=== PATIENT | female | born 1940 | race Hispanic/Latino ===

== ENCOUNTER 2017-05-07 13:49 | Inpatient (IN) | payer MEDICARE, MEDICAID ==
[~2017-05-07 13:49] MED LIST: ISOVUE-370 76%-LOCM 1 ML ONE
[2017-05-07 15:20] LABS: #Lymphocytes 1.1 thou/uL (1.20-3.40); #Monocytes 1.2 thou/uL (0.11-0.59); #Neutrophils 10.8 thou/uL (1.40-6.50); %Basophils 0.2 % (0.0-1.0); %Eosinophils 0.3 % (0.0-10.0); %Lymphocytes 8.3 % (21.0-51.0); %Monocytes 8.8 % (0.0-10.0); Hematocrit 41.1 % (36.0-47.0); Mean Platelet Volume 6.5 fL (7.4-10.4); Red Blood Cell (RBC) Count 3.95 mill/uL (4.20-5.40); White Blood Cell (WBC) Count 13.1 thou/uL (4.8-10.8)
[2017-05-07] MEDS ORDERED: Ondansetron HCl/PF 4 MG/2 ML Vial ONE (15:39)
[2017-05-07] MEDS ORDERED: Acetaminophen 325 MG TAB ONE (15:39)
[2017-05-07] MEDS ORDERED: Morphine 4 MG/ML Carpuject ONE ×2 (15:39→19:49)
[2017-05-07 15:45] LABS: ALT (SGPT) 14 U/L (8-55); AST (SGOT) 18 U/L (5-34); Alkaline Phosphatase 85 U/L (40-150); Anion Gap 14 mmol/L (10-20); BUN (Urea Nitrogen) 11 mg/dL (9.8-20.1); Bilirubin, Total 0.6 mg/dL (0.2-1.2); Calc. Creatinine Clearance 0 mL/min (70-130); Calcium 9.5 mg/dL (7.8-10.44); Carbon Dioxide 26 mmol/L (23-31); Chloride 102 mmol/L (98-107); Estimated GFR-MDRD 73; Globulin 3.5 g/dL (2.4-3.5); Lipase 8 U/L (8-78); Protein, Total 6.8 g/dL (6.0-8.3)
[2017-05-07 15:48] LABS: Troponin I Less than 0.010 ng/mL (< 0.028)
[2017-05-07 15:50] LABS: Bilirubin Negative (Negative); Blood, Urine Negative (Negative); Glucose, Urine (Dipstick) Negative (Negative); Ketone, Urine Negative (Negative); Nitrite Negative (Negative); Protein, Urine (Dipstick) Negative (Neg-Trace)
[2017-05-07 15:53] LABS: Bacteria/HPF 1+ HPF (None Seen); Hyaline Casts/LPF 0-3 HYALINE CAST LPF (0-3 Hyaline); RBC/HPF 0-3 HPF (0-3)
--- NOTE | 2017-05-07 16:43 | RAD ---
CHEST ONE VIEW 05/07/17 HISTORY: Fever. COMPARISON: Chest one view 03/19/16. FINDINGS: Heart size is similar. No focal air space consolidation, pneumothorax or effusion. Lungs are slightl y hypoinflated with vascular crowding and bibasilar atelectasis. IMPRESSION: Lung hypoinflation. No acute intrathoracic abnormality. POS: [facility]
--- NOTE | 2017-05-07 16:59 | CT ---
CT ABDOMEN AND PELVIS WITH CONTRAST 05/07/17 HISTORY: Abdominal pain. COMPARISON: CT abdomen and pelvis 2012. Lung bases are clear. No pericardial effusion. The hepatic hypodensities are similar to the comparison examination likely a benign cyst. Prior chol ecystectomy. Small sliding hiatal hernia. Aortoiliac contour is normal. There is evidence of prior ventral hernia repair which there is now eventration of the ventral herni a repair with diastasis of the rectus muscles. There is also extension of small bowel through a defe ct of the hernia repair to the left and to the caudal aspect margin. At the distal transverse colon, is an area of circumferential edema. This is just proximal to what appears to be lamellated calcifi cation within the lumen of the transverse colon at the level of the splenic flexure. The distal colo n is collapsed. The colon proximal to this lamellated calcification is not dilated although is sligh t air filled. No free intraperitoneal gas. The lungs are osteopenic. There are compression fractures at L2 and L3. Severe degenerative disease of the pubic symphysis likely evidence of infection or prior trauma with mild widening. There is scl erosis of the sacrum bilaterally in a linear fashion suggesting insufficiency fractures. The liver and spleen are unremarkable. There is a mass of the inferior pole left kidney which extend s into the renal sinus fat measuring 2.3 x 1.5 x 2.5 cm. The cortices is thinned relative to the 201 3 examination. IMPRESSION: 1. Focal area of circumferential wall thickening of the distal transverse colon with adjacent i nflammatory stranding. This may represent a focal area of colitis. Just distal to this at the spleni c flexure is a lamellated calcification in the lumen of the colon measuring 4.6 x 3.2 x 3 cm. A low grade obstructive process is felt less likely. Colonoscopic evaluation is recommended. 2. Eventration of the prior ventral hernia repair with a focal defect at the caudad and left la teral portion of the repair which contains a loop of small bowel. No evidence of obstruction of this loop of small bowel. 3. 2.4 x 1.6 x 2.5 cm mass inferior pole left kidney extending to the renal sinus fat. This is concerning for malignancy. Urologic consultation recommended. Followup MRI renal protocol would be r ecommended. 4. Osteopenia of the skeleton with compression fracture of L2 and L3, approximately 20% anterio r height loss. There is also sclerosis of the sacrum and ilium on either side of the SI joint sugges ting a chronic longstanding insufficiency fracture. POS: [facility]
[2017-05-07] MEDS ORDERED: metroNIDAZOLE 500 MG/100 ML BAG ONE (17:56)
[2017-05-07] MEDS ORDERED: Ondansetron HCl/PF 4 MG/2 ML Vial IVP PRN (20:03)
[2017-05-07] MEDS ORDERED: Ondansetron ODT 4 MG TAB SL PRN (20:03)
[2017-05-07] MEDS ORDERED: Sodium Chloride 0.9% 1,000 ML IV SCH (20:03)
[2017-05-07] MEDS ORDERED: MORPHINE 10 MG/ML SYRINGE IV PRN (20:05)
[2017-05-07] MEDS ORDERED: Loratadine 10 MG TAB PO PRN (20:35)
[2017-05-07] MEDS: Sodium Chloride 0.9% 1,000 ML IV SCH (21:20)
[2017-05-07] MEDS: Ondansetron HCl/PF 4 MG/2 ML Vial IVP PRN (21:20)
--- NOTE | 2017-05-07 23:25 | HP ---
DATE OF ADMISSION: 05/07/2017 PRIMARY CARE PHYSICIAN: Dr. Isaias Foster. CHIEF COMPLAINT: Abdominal pain. HISTORY OF PRESENT ILLNESS: This is a 76-year-old female with past medical history of hypo thyroidism, hypertension, anxiety, GERD, who presented to the emergency room with severe lower abdom inal pain for a few days. She also reported subjective fevers at home. She also reports nausea wit hout vomiting. She denies constipation and diarrhea. In the emergency room, she has had multiple t ests including CT of the abdomen, which showed colitis as well as a kidney mass. She has been given a dose of Levaquin and Flagyl as well as morphine and Tylenol. She does feel little better at this time. ALLERGIES: 1. CODEINE. 2. CIPRO. 3. MACROBID. 4. ZANAFLEX. 5. BACTRIM. 6. RANITIDINE. MEDICATIONS: 1. Synthroid 25 mcg p.o. daily. 2. Losartan 50 mg p.o. daily. 3. Omeprazole 40 mg p.o. daily. 4. Diazepam 5 mg one half tablet daily p.r.n. for anxiety. PAST SURGICAL HISTORY: 1. Cholecystectomy. 2. Hernia repair. FAMILY HISTORY: Unremarkable. SOCIAL HISTORY: Denies tobacco, alcohol, and drugs. REVIEW OF SYSTEMS: General: Reports subjective fever. Denies chills, sleep, or appetite change. HEENT: Denies headache, vision changes, sore throat, or dysphagia. Skin: Denies rashes and lesion s. Cardiovascular: Denies chest pain or palpitations. Respiratory: Denies shortness of breath an d cough. Gastrointestinal: Reports lower abdominal pain and nausea. Denies vomiting, constipation , or diarrhea. Genitourinary: Denies dysuria, hematuria, or discharge. Musculoskeletal: Denies j oint stiffness or swelling. Neurologic: Denies numbness, syncope, or dizziness. PHYSICAL EXAMINATION: VITAL SIGNS: Blood pressure 141/72, pulse 92, respirations 20, temperature 101.2, oxygen saturation 95% on room air. GENERAL: Alert and oriented x3 with no acute distress. SKIN: No rashes or lesions. HEENT: Normocephalic. Pupils are equally round and reactive to light. Extraocular muscles are int act. Moist mucous membranes with nonerythematous throat. HEART: Regular rate and rhythm with no murmurs. LUNGS: Clear to auscultation bilaterally. No rales. ABDOMEN: Soft, mildly tender in the lower quadrants. Bowel sounds decreased. MUSCULOSKELETAL: Normal strength and range of motion. NEUROLOGIC: Cranial nerves II through XII are intact. Sensation is within normal limits. LABORATORY DATA AND X-RAY FINDINGS: 1. White blood cell count 13.1, hemoglobin 13.7, hematocrit 41.1, platelets 223, neutrophils 82.4%. 2. Sodium 138, potassium 3.5, chloride 102, carbon dioxide 26, BUN 11, creatinine 0.77, glucose 131 , lactic acid 1.0, calcium 9.5, total bilirubin 0.6, AST 18, ALT 14, alkaline phosphatase 85, CK 25, CK-MB 0.5. Troponins less than 0.010. Total protein 6.8, albumin 3.3. Lipase 8. 3. Chest x-ray, no acute process. CT of the abdomen and pelvis shows evidence of colitis. 4. Left kidney mass. ASSESSMENT AND PLAN: 1. Sepsis. This is qualified by elevated white blood cells and fever. We will provide broad-spect rum antibiotics as well as IV fluids. Her lactic acid is normal. 2. Colitis. We will give antibiotics, Flagyl and Levaquin IV. Her pain is decreased at this time. We will make her n.p.o. 3. Urinary tract infection. This is questionable and we will wait for urine culture. 4. Kidney mass. This is a new finding apparently and we will consult Nephrology. 5. Hypertension. The patient's blood pressure is mildly elevated in the ER. We will continue her home medications. 6. Hypothyroidism. We will continue her home dose of Synthroid. 7. Gastroesophageal reflux disease. We will continue PPI in the hospital. 8. Anxiety. Continue diazepam p.r.n.
[2017-05-08] MEDS ORDERED: metroNIDAZOLE 500 MG in Premix Bag 1 BAG IVPB SCH (02:00)
[2017-05-08] MEDS: metroNIDAZOLE 500 MG in Premix Bag 1 BAG IVPB SCH ×3 (02:48→19:20)
[2017-05-08] MEDS: Ondansetron HCl/PF 4 MG/2 ML Vial IVP PRN ×3 (03:26→20:08)
[2017-05-08 05:34] LABS: Anion Gap 13 mmol/L (10-20); BUN (Urea Nitrogen) 8 mg/dL (9.8-20.1); Calc. Creatinine Clearance 156 mL/min (70-130); Calcium 8.7 mg/dL (7.8-10.44); Carbon Dioxide 20 mmol/L (23-31); Chloride 110 mmol/L (98-107); Estimated GFR-MDRD 87
[2017-05-08 05:36] LABS: Band 4 % (5-11); Hematocrit 37.2 % (36.0-47.0); Macrocytosis SLIGHT = 6-15 cells (100X) (0-5/hpf); Mean Platelet Volume 8.3 fL (7.4-10.4); Neutrophil 79 % (42-75); Nucleated RBC 3 % (0); Reactive Lymphocytes 2 % (0-10); Red Blood Cell (RBC) Count 3.56 mill/uL (4.20-5.40)
[2017-05-08] MEDS: Levothyroxine Sodium 25 MCG TAB PO SCH (06:52)
[2017-05-08] MEDS: Sodium Chloride 0.9% 1,000 ML IV SCH ×2 (08:21→16:25)
[2017-05-08] MEDS: Losartan Potassium 25 MG TAB PO SCH (09:26)
[2017-05-08] MEDS ORDERED: Promethazine HCl 25 MG/ML VIAL IM/IV PRN (09:26)
[2017-05-08] MEDS ORDERED: Nystatin Powder 15 GM BOT TOP PRN (09:27)
[2017-05-08] MEDS: Diazepam 5 MG TAB PO PRN (09:31)
[2017-05-08] MEDS: Acetaminophen 325 MG TAB PO PRN ×2 (09:39→16:54)
[2017-05-08] MEDS ORDERED: GoLYTELY 4,000 ml Bottle PO SCH (13:00)
--- NOTE | 2017-05-08 16:22 | CON ---
DATE OF CONSULTATION: 05/08/2017 GI INPATIENT CONSULTATION NOTE: REQUESTING PHYSICIAN: Dr. Costa. REASON FOR CONSULTATION: Distal transverse colon thickening. HISTORY OF PRESENT ILLNESS: Karli Sahni is a 76-year-old woman previously seen by my GI colleague , Dr. Fco Moon. Note, she had an EGD and colonoscopy last in 12/22/2011. The EGD showed only hia luis hernia and some nonerosive gastritis. The colonoscopy showed a single sigmoid polyp which was r emoved and was otherwise normal to the hepatic flexure, it could not be advanced beyond the hepatic flexure due to severe hernia. The patient relates that in 2012, she underwent hernia repair and had a complication of antral leak which had to be repaired along with peritonitis with wound VAC. This eventually resolved. The patient has no complaint of any chronic gastrointestinal symptoms. She h as been seen fairly recently in the clinic in the past couple of years for some constipation, but to me today, she really denies any chronic gastrointestinal symptoms. Over the past couple of days, f airly acutely, she had the onset of lower abdominal discomfort. This really seems to involve the le ft upper quadrant and bilateral lower quadrants. It is associated with nausea and she had a single episode of nonbloody emesis yesterday. She is not currently feeling nauseated, but the pain continu es to wax and wane. Through all this, she says her bowel movements have been normal. She had a nor mal bowel movement yesterday. She denies any diarrhea, constipation, melena, or hematochezia. She denies any recent weight loss. Upon presentation, laboratory studies were essentially unremarkable, but a CT of the abdomen and pelvis demonstrates a couple of concerning findings. There is a 2.5 cm mass at the inferior pole of the left kidney for which urologic consultation has been requested and there is also a focal area of circumferential wall thickening in the distal transverse colon. Ther e is adjacent inflammatory stranding, but just distal to this there is a lamellated calcification in the lumen of the colon measuring 4.6 x 3.2 x 3 cm. Note that this is an area that was examined on her last colonoscopy, but this was 5 years ago. REVIEW OF SYSTEMS: Full review of systems including constitutional, head, eyes, ears, nose, throat, GI, , cardiovascular, respiratory, musculoskeletal, and neurologic systems is negative except as noted in the HPI. PAST MEDICAL HISTORY: Hypertension, hypothyroidism, anxiety, GERD, cholecystectomy, ventral hernia repair with complication of peritonitis and repeat surgery 2012. ALLERGIES: CODEINE, CIPROFLOXACIN, MACROBID, ZANAFLEX, BACTRIM, RANITIDINE. OUTPATIENT MEDICATIONS: Synthroid, losartan, omeprazole 40 mg daily, diazepam p.r.n. INPATIENT MEDICATIONS: Levaquin IV, Flagyl IV, Zofran. FAMILY HISTORY: Noncontributory. SOCIAL HISTORY: No smoking, alcohol, or drug use. PHYSICAL EXAMINATION: VITAL SIGNS: Temperature 98.0, pulse 73, blood pressure 153/72, 95% oxygen saturation on room air. GENERAL: Morbidly obese 76-year-old woman, lying in bed comfortably, in no acute distress. SKIN: No jaundice, no rashes were palpable. EYES: No scleral icterus. Extraocular movements intact. ENT: Mucous membranes moist, no oral lesions. LYMPH: No submandibular, supraclavicular lymphadenopathy. THYROID: Nontender to palpation. HEART: Distant heart sounds, regular rate. LUNGS: Clear to auscultation bilaterally. No wheezing, no respiratory distress. ABDOMEN: Morbidly obese. Bowel sounds are present, soft, some mild tenderness to palpation in the lower abdomen, but no guarding, rebound tenderness. Surgical scars are well healed, ventral midline hernia defect is appreciated. EXTREMITIES: No peripheral edema. VESSELS: Radial pulses 2+ bilaterally. NEUROLOGICAL: Cranial nerves II-XII intact bilaterally. No focal deficits. LABORATORY STUDIES: WBC 11, hemoglobin 12.4, platelets 131, BUN 8, creatinine 0.66, sodium 139, pot assium 4.0, lipase only 8. Troponin negative. Total bilirubin 0.6, alkaline phosphatase 85, AST 18 , ALT 14, albumin 3.3. Urinalysis shows 7-10 WBCs. IMAGING STUDIES: Chest x-ray shows hyperinflation of the lungs, but no acute abnormalities. CT of the abdomen and pelvis with contrast shows eventration of her ventral hernia repair with diastasis o f the rectus muscles, some extension of small bowel through the defect in the hernia repair. There is an area of circumferential edema in the distal transverse colon just proximal to what appears to be a lamellated calcification within the lumen at the level of the splenic flexure and these measure s 4.6 x 3.2 x 3 cm. There is also a 2.4 x 1.6 x 2.5 cm mass in the inferior pole of the left kidney , diffuse osteopenia and a compression fracture of L2 and L3. ASSESSMENT AND PLAN: 1. Abnormal CT scan of the transverse colon. 2. Lower abdominal pain, somewhat acute. 3. Nausea and vomiting, acute. 4. Left renal mass. I discussed the CT findings with the patient. It is unclear whether to attrib [place] her presenting symptoms to this colon abnormality or possibly to this renal mass. The colon fin ding is certainly concerning for possible malignancy versus focal colitis. I do recommend we procee d with colonoscopy for further investigation. We will administer bowel preparation today in anticip ation of the procedure tomorrow morning. Hopefully, she will be able to tolerate the bowel preparat ion. We will go ahead and start giving it now and have her take it slowly as needed. Also, agree with urologic consultation for this renal mass. Thank you for the consultation. Please call back with questions or concerns.
--- NOTE | 2017-05-08 21:38 | PRG ---
DATE OF SERVICE: 05/08/2017 HISTORY OF PRESENT ILLNESS: The patient states she remains with abdomen pain to a band across her upper left quadrant. She remains nauseated, has had several bouts of small episodes of emesis despite Zofran treatment and being n.p.o. with sips and chips. The patient and family at bedside verbalized understanding regarding infection to inflammation of the colon. Resolution of fevers since initial reading in the emergency department, no further fevers at this point in time on antibiotics. The patient has done well with improvement of her white blood cell count. Awaiting Urology and Gastroenterology to follow up with patient regarding new diagnosis of renal mass and patient's colitis. The patient apparently undergoing a bowel prep for possible colonoscopy with Dr. Lucho Castillo. LABORATORY DATA: This a.m., white blood cell count improved to 11.0, hemoglobin stable at 12.4, platelet count of 131. Sodium 139, potassium of 4.0 , CO2 of 20, creatinine 0.66, blood glucose of 109. Troponin on admission less than 0.01. Albumin of 3.3. Urinalysis reviewed, positive squames bacteria, white blood cells, small leukocyte esterase, no nitrate, no blood, no ketones. Cultures of skin of patient's folds of groin and pannus showed gram-negative rods, no growth of urine in 24 hours. Blood culture is currently negative at this time. PHYSICAL EXAMINATION: VITAL SIGNS: Temperature of 98.2, respiratory rate 16, pulse of 74, oxygen saturation 93% on room air, blood pressure 136/63. GENERAL: The patient is alert, oriented, appears acutely nauseous. HEENT: Normocephalic, atraumatic. Extraocular movements are intact. The patient has her new glasses in place. NECK: Supple. The patient is morbidly obese. HEART: Regular rate and rhythm. No murmurs auscultated. LUNG: Sounds are distant secondary to body habitus; however, clear. ABDOMEN: Protuberant, soft, no rebound or guarding. Mild pain with palpation of upper left quadrant generalized. EXTREMITIES: Lower extremities without cyanosis or edema. NEUROLOGIC: The patient is alert and oriented x3, no focal deficits. Speech is normal. SKIN: see wound photos, folds of groin and panus with erythema and skin breaks ASSESSMENT AND PLAN: 1. Sepsis. The patient continued on Levaquin and Flagyl at this point in time , improved white blood cell count, no further fevers. The patient remains on IV fluids, overall n.p.o. sips and chips. We will continue at this point in time. Current blood cultures negative colitis. Follow up Dr. Castillo's recommendations with potential colonoscopy for further evaluation of wall thickening in light of possible of new mass and ruling out metastatic disease. 2. Cellulitis, currently growing gram-negative rods, thought to have prior yeast infection chronically. We will continue to follow culture identification over the next 2 days. The patient on Levaquin as above. The wound care team has been consulted. Nystatin topically has been ordered at this point in time. 3. Renal mass, urology has been consulted for recommendations. Radiology recommending MRI of the lesion, defaulting to urology's recommendations if they would rather perform biopsy, further imaging prior to biopsy, or follow up after patient stabilizes regarding white blood cell count and colonoscopy is reasonable. The patient's weight is noted to be 299 pounds regarding size limitations of any imaging services. 4. Prophylaxis, continuing patient's PPI and will hold Lovenox at this point in time for any procedures such as biopsies, SCDs in place currently. LORAD
--- NOTE | 2017-05-09 01:00 | CON ---
DATE OF CONSULTATION REQUEST AND REPORT: 05/08/2017 DATE OF HOSPITAL ADMISSION: 05/07/2017 REASON FOR CONSULTATION: 1. Left renal cyst. 2. Question of urinary tract infection. HISTORY OF PRESENT ILLNESS: Ms. iLsa Sahni is a very pleasant 76-year-old [place]uneian-speaking [facility] female who presented with abdominal pain which was in the periumbilical area. The patient cont inues to have pain today. She reports no lateralization of her symptoms. Her pain symptoms are foc ally around her umbilicus which has undergone previous ventral hernia repair. Ms. Sahni underwent CT scanning which demonstrated the presence of a left-sided renal cyst. This is close to the renal sinus on the left side and abuts renal sinus fat. The patient also had a ques tion of a possible urinary tract infection, but her urine culture from the first 24 hours of incubat ion has turned out negative. ALLERGIES: The patient reports allergies to the followin. CODEINE. 2. CIPRO. 3. MACROBID. 4. ZANAFLEX. 5. BACTRIM. 6. RANITIDINE. CURRENT HOME MEDICATIONS: Include; 1. Synthroid 25 mcg p.o. q. day. 2. Losartan 50 mg p.o. q. day. 3. Omeprazole 40 mg p.o. q. day. 4. Diazepam 5 mg 1/2 tablet p.o. q. day for anxiety. PAST MEDICAL HISTORY: 1. Anxiety. 2. Gastroesophageal reflux disease. 3. Hypothyroidism. 4. Hypertension. PAST SURGICAL HISTORY: 1. Cholecystectomy. 2. Ventral hernia repair. FAMILY MEDICAL HISTORY: No history of genitourinary disorders. GYNECOLOGIC HISTORY: The patient is postmenopausal and has been so for 30 years. SOCIAL HISTORY: The patient does not consume alcohol, tobacco, or utilize drugs. She resides at [facility]. REVIEW OF SYSTEMS: General: No systemic complaints of fever. The patient's only systemic complain t is that of abdominal pain. Pulmonary: No complaints. Cardiac: No complaints of current chest p ain. Gastrointestinal: The patient reports she has not had a bowel movement today. She reports on e yesterday. She does not report gross blood in her stool. She does have abdominal pain symptoms w hich are periumbilical in location. Genitourinary: No previous history of kidney stones or genitou rinary disorders. No recent history of urinary tract infections by the patient's report. She has n ot had any at home. PHYSICAL EXAMINATION: VITAL SIGNS: Temperature is 98.0 Fahrenheit, respiratory rate is 18, pulse rate is 73. She is in n ormal sinus rhythm on cardiac monitoring. Blood pressure is 153/72. HEAD, EYES, EARS, NOSE, AND THROAT: Extraocular movements are intact. Sclerae are anicteric. Orop harynx is clear. NECK: Supple. LUNGS: Clear to auscultation bilaterally with body morphology associated changes. CARDIAC: Auscultatory changes are noted secondary to body morphology with distant cardiac sounds. I reviewed her cardiac monitoring that shows normal sinus rhythm. ABDOMEN: Soft, obese, and above the umbilicus is nontender. At the umbilicus itself and periumbili brisa, there is a report of pain. I am not able to palpate any masses secondary to the patient's damaris dy morphology. The lower abdomen has a large pannus which overrides the mons pubis which also has a pannus to it. The patient has what appears to be a yeast infection along the pannus over fold. PELVIC: Examination performed with the assistance of the patient's nurse, estrogenization appears f air. There is no evidence of significant prolapse at the present time. No urinary leakage. Hygien e is suboptimal secondary probably to the patient's body morphology and difficulty with hygiene. LABORATORY STUDIES: The patient's white count 11,000, hemoglobin 12.4, hematocrit of 37.2, platelet count 131. Electrolytes are essentially within normal limits except for bicarbonate of 20 and sodi um of 110, blood urea nitrogen is 8 with a creatinine of 0.66, glucose is 109. Microbiology: The p atient had apparent culture of her pannus. A bacterial culture there grew a gram-negative blanca which revealed normal skin organism. The patient had a urine culture from 05/07/2017, which was resulted with no growth at 24 hours. Blood culture shows no growth to date. RADIOLOGIC STUDIES: CT scan of the abdomen and pelvis performed on 05/07/2017 demonstrates relative thinning of the renal parenchyma, particularly noticeable on the left kidney. The patient has a cy st in the inferior pole of the left kidney measuring 2.3 x 1.5 x 2.5 cm. The tissues thinned a fair amount since the previous 2012 examination except where the cyst is located, not clear whether the cyst is suspicious based on the imaging protocol utilized. A CT renal mass protocol would be a poss ible consideration of this patient. Her body morphology would suggest that a renal ultrasound study probably will not work. ASSESSMENT AND PLAN: 1. Left lower pole renal cyst 2.3 x 1.5 x 2.5 cm. Discussed with the patient that this is an incid ental finding of a cyst, which can undergo elective evaluation. At the present time, there is no ac hiram need to complete her workup. The patient declined a magnetic resonance imaging study due to a f ear of anxiety and claustrophobia. The patient and I discussed other imaging possibilities a CT sca n which she underwent on this visit would be a possibility as a CT renal mass protocol. A renal ult rasound is unlikely to be successful in this patient secondary to her body morphology. The patient may follow up in my office with respect to those issues. 2. Question of urinary tract infection. Urine culture negative at 24 hours. Pelvic examination cline s poor general hygiene. Her estrogenization appears fair at the present time and the patient is not reporting recurrent urinary tract infections.
[2017-05-09] MEDS: metroNIDAZOLE 500 MG in Premix Bag 1 BAG IVPB SCH ×3 (03:00→19:42)
[2017-05-09] MEDS: Sodium Chloride 0.9% 1,000 ML IV SCH ×3 (03:01→21:10)
[2017-05-09] MEDS: Levothyroxine Sodium 25 MCG TAB PO SCH ×2 (05:09)
[2017-05-09] MEDS: Ondansetron HCl/PF 4 MG/2 ML Vial IVP PRN ×3 (05:09→20:53)
[2017-05-09 05:50] LABS: #Eosinphils 0.1 thou/uL (0.0-0.7); #Lymphocytes 1.2 thou/uL (1.20-3.40); #Neutrophils 8.2 thou/uL (1.40-6.50); %Basophils 0.1 % (0.0-1.0); %Eosinophils 1.3 % (0.0-10.0); %Lymphocytes 11.2 % (21.0-51.0); %Monocytes 9.1 % (0.0-10.0); Hematocrit 40.3 % (36.0-47.0); Mean Platelet Volume 6.8 fL (7.4-10.4); Red Blood Cell (RBC) Count 3.84 mill/uL (4.20-5.40); White Blood Cell (WBC) Count 10.4 thou/uL (4.8-10.8)
[2017-05-09 05:53] LABS: Anion Gap 14 mmol/L (10-20); BUN (Urea Nitrogen) 7 mg/dL (9.8-20.1); Calc. Creatinine Clearance 145 mL/min (70-130); Carbon Dioxide 21 mmol/L (23-31); Chloride 108 mmol/L (98-107); Estimated GFR-MDRD 80
--- NOTE | 2017-05-09 09:42 | PRG ---
DATE OF SERVICE: 05/09/2017 SUBJECTIVE: Ms. Sahni did not tolerate her prep attempt last night. She ended up drinking only a bout 1/4 of the gallon of GoLYTELY. This is because she was having severe nausea and worsening of h er abdominal pain with the prep. She really did not have any stool output, which is a bit unexpecte d, as again she had been having essentially normal bowel movements until this acute presentation. PHYSICAL EXAMINATION: VITAL SIGNS: Temperature 98.6, pulse 74, blood pressure 145/66, 93% oxygen saturation on room air. GENERAL: Obese, lying in bed in mild discomfort from left-sided abdominal pain. HEART: Regular rate and rhythm. LUNGS: Clear to auscultation bilaterally. ABDOMEN: Tender to palpation in the left side. No guarding or rebound tenderness. EXTREMITIES: No peripheral edema. LABORATORY STUDIES: WBC 10.4, hemoglobin 12.8, platelets 193. Sodium 140, potassium 3.4, BUN 7, cr eatinine 0.71. ASSESSMENT AND PLAN: 1. Abnormal CT scan of the transverse colon, focal colitis versus mass. 2. Lower abdominal pain. 3. Nausea and vomiting. Unfortunately, Ms. Sahni has been unable to tolerate her bowel prep. Her abdomen is not acute, bu t I am a bit concerned for obstructive process in the colon. We are not going to be able to perform colonoscopy today, and I am not sure she will ever tolerate the bowel prep. We are going to go ahe ad and get surgical consultation.
[2017-05-09] MEDS: Losartan Potassium 25 MG TAB PO SCH (09:49)
[2017-05-09] MEDS: Acetaminophen 325 MG TAB PO PRN (11:16)
[2017-05-09] MEDS ORDERED: Fleet Enema 133 ML BOT PR SCH (15:45)
[2017-05-09] MEDS: Metoclopramide HCl 10 MG/2 ML VIAL IVP SCH ×2 (15:49→20:58)
--- NOTE | 2017-05-09 16:12 | CON ---
DATE OF CONSULTATION: 05/09/2017. TYPE OF CONSULTATION: Surgical consultation. CONSULTING PHYSICIAN: Lucho Castillo MD REASON FOR CONSULTATION: Colonic mass, possible obstruction, abdominal pain. HISTORY OF PRESENT ILLNESS: The patient is a 76-year-old morbidly obese female (BMI of 63) . She has a history of several prior abdominal hernia operations. Her most recent operation in was complicated by a bowel injury leading to feculent peritonitis. All mesh was removed and she w as treated as an open abdomen until her infectious process resolved. She subsequently has significant subsequent ventral hernia. She presented to the emergency room 2 d ays ago complaining of abdominal pain primarily in the left side. She gives a history of regular damaris wel movements and actually had three bowel movements on the day of admission. CT scan obtained at t he time of admission revealed an entirely decompressed small bowel and colon revealed some degree of calcified mass within the distal transverse colon. Distal to this, the colon was very decompressed . She had a mild leukocytosis at the time of presentation (white blood cell count of 13.1). Her le ukocytosis has resolved since admission. She has been on IV antibiotics using Levaquin and metronid azole. She was also noted to have a left renal mass at the time of her CT scan. The patient subsequently was seen in consultation by Dr. Castillo of Gastroenterology and Dr. Connolly of [facility]. Dr. Connolly recommended further evaluation of the kidney lesion with an MRI, but felt that th is could be electively done on an outpatient basis. The patient had some reservations about proceed ing with an MRI. Dr. Castillo recommended colonoscopy and bowel prep was ordered for yesterday. When h e arrived today, the patient had been unable to tolerate the prep and earlier drank about 4th of the prep. She had not vomited, but she felt nauseated and stopped drinking this. I am subsequently co nsulted for further thoughts regarding her colonic problem. PAST MEDICAL HISTORY: Hypertension, hypothyroidism, anxiety, gastroesophageal reflux disease, and s evere morbid obesity. PAST SURGICAL HISTORY: 1. Cholecystectomy. 2. Several ventral hernia repairs. 3. Laparotomy to treat peritonitis in 2011, subsequent bowel injury. MEDICATIONS: Synthroid, losartan, omeprazole, and diazepam. Inpatient she is also taking Levaquin and Flagyl. ALLERGIES: CODEINE, CIPROFLOXACIN, MACROBID, ZANAFLEX, BACTRIM, AND RANITIDINE. PRIMARY CARE PHYSICIAN: Dr. Isaias Foster. PERSONAL AND SOCIAL HISTORY: She is with 7 children. Two of her children are present durin g examination. She does not smoke nor does she drink alcohol. She lives with one of her daughters. REVIEW OF SYSTEMS: She specifically denies any cardiac or pulmonary problems. PHYSICAL EXAMINATION: VITAL SIGNS: She is afebrile with temperature 99.2, pulse 77, blood pressure 131/64. GENERAL: She is a morbidly obese 76-year-old female resting in her wheelchair. [facility]. She tells me she is a little nauseated, but she has not vomited. HEAD, EYES, EARS, NOSE, AND THROAT: Unremarkable. NECK: Supple. LUNGS: Clear to auscultation. CARDIAC: Regular rate and rhythm without murmur. ABDOMEN: It is extraordinarily obese. It extends from one side to the other of the large wheelchai r. She has well-healed, but wide incision in her midline of her abdomen. She has got another trans verse incision that healed by secondary intention in the left side of the abdomen. Bowel sounds are present and normoactive. There is absolutely no tympany. She has got normoactive bowel sounds. T here is no focal tenderness that I can appreciate on examination. LABORATORY AND X-RAY FINDINGS: CBC from today reveals a white blood cell count of 10.4, hemoglobin 12.8, platelet count is 193. Chemistry profile reveals no significant electrolyte abnormalities. ASSESSMENT: The patient with an abnormal finding in her distal transverse colon. This appears to b e a calcified mass, potentially consistent with some form of bezoar. It does not appear typical for malignancy. This does, however, give some degree of an obstructive appearance in that the colon is so decompressed distally. Surprisingly however, the colon nor small bowel is at all dilated proxim ally. PLAN: This patient will be an extremely difficult surgical patient and therefore surgery should be avoided at all cost. She is extraordinarily morbidly obese with very limited mobility. She has ano ther recurrent ventral hernia. She is going to have severe adhesions from her diffuse intraabdomina l infection previously. Unless there is no other way to evaluate or treat this colonic process, I w ould recommend holding off on surgery. All effort should be made to achieve an appropriate bowel pr ep and colonoscopic evaluation. This may happen over the course of a couple of days, but would cert ainly be less traumatic at surgery to evaluate and treat this problem. I have discussed all this in detail with the patient and her family. They understand and agree to proceed in this fashion. Wendy batista also discussed her case with Dr. Lucho Castillo.
--- NOTE | 2017-05-09 23:50 | PRG ---
DATE OF SERVICE: 05/09/2017 SUBJECTIVE: Patient was seen and examined at bedside and overnight events noted. Patient denies an y shortness of breath or chest pain or palpitation. No history of nausea or vomiting or diarrhea or fever or chills or cramps. OBJECTIVE: GENERAL: This is a well-built female, in no apparent distress. VITAL SIGNS: Temperature 98, pulse 77, respiratory rate is 17, blood pressure 131/64. HEENT: Atraumatic, normocephalic. Oral mucosa is moist. NECK: Supple. CARDIOVASCULAR: S1, S2 heard. Rate and rhythm regular. RESPIRATORY: Clear to auscultation. GASTROINTESTINAL: Abdomen is soft. MUSCULOSKELETAL: No tenderness. No edema. DERMATOLOGIC: No skin rash. NEUROLOGIC: Alert and awake and oriented x3. No focal neurologic deficits. Moving all the extremit ies. PSYCHIATRIC: Mood and affect normal. LABORATORY DATA: Potassium is 3.4, BUN 7, creatinine 0.7. ASSESSMENT AND PLAN: 1. Renal cyst, benign per Urology. Follow up with Urology. 2. Hypokalemia, replace and monitor. 3. Anemia, mild. 4. Morbid obesity. 5. Chronic kidney disease stage II, stable. 6. Follow up with Urology for renal cyst. We will sign off.
--- NOTE | 2017-05-10 00:19 | PRG ---
DATE OF SERVICE: 05/09/2017 SUBJECTIVE: The patient has some improvement of abdominal pain, continues to have left upper quadrant abdominal pain. As she is tolerating clear liquids, she did not tolerate the GoLYTELY prep and was not able to have her colonoscopy done today. She is concerned about being able to finish the GoLYTELY due to the poor taste. She was seen by Dr. Liz who did not feel like she was a good surgical candidate. He did not see anything that looked consistent with malignancy, but I was concerned about the mass in the obstruction in her colon. She understands the importance of having a colonoscopy done and the risk of not having good prep and she agrees to continue to attempt the GoLYTELY prep as well as to have a Fleet enema. She has not had any further fevers or chills. She did not have further nausea or vomiting. OBJECTIVE: VITAL SIGNS: Temperature 99.2 which is her T-max, pulse of 77, respirations 17 , pulse oximetry is 95, blood pressure is 131/64. GENERAL: She is awake and alert, in no acute distress. SKIN: large area of macerated, red rash in left pannus. HEENT: Mucosa is moist. NECK: Supple. HEART: Regular rate and rhythm. LUNGS: Clear. ABDOMEN: Morbidly obese. Positive bowel sounds, tenderness in the left side, but no rebound or guarding. LABORATORY DATA: White blood cell count is down to 10.4, hemoglobin and hematocrit 12.8 and 40.3, platelets 193. Sodium 140, potassium 3.4, chloride 108, CO2 of 21, BUN and creatinine 7 and 0.71. Serum glucose of 98. Accu- Cheks are normal. Blood cultures have been negative x2. Flu test was negative. Urine culture was negative. ASSESSMENT AND PLAN: 1. This is a 76-year-old female admitted with acute abdominal pain, now found to have focal colitis versus mass and abnormal CAT scan of her transverse colon with continued lower abdominal pain. Planned for continued bowel prep for colonoscopy in the morning per Dr. Castillo, appreciate Dr. Liz' input and we will continue to try to hold off any kind of surgical intervention. 2. Renal cyst was evaluated by Dr. Connolly. He feels like there is no need for further workup as an inpatient right now, but can be evaluated as an outpatient. 3. Osteoporosis with lumbar compression fractures. She is not complaining of pain at this time. We will monitor and continue to manage as an outpatient. She is not ambulatory, so likely not causing further pain. 4. Hypertension, stable. We will continue her medications and p.r.n. medications as needed. 5. Skin wound. History of chronic yeast dermatitis. Now with cellulitis. Continue antibiotics and wound care. JESSICA
[2017-05-10] MEDS: metroNIDAZOLE 500 MG in Premix Bag 1 BAG IVPB SCH ×4 (02:05→23:26)
[2017-05-10] MEDS: Metoclopramide HCl 10 MG/2 ML VIAL IVP SCH ×4 (04:40→23:44)
[2017-05-10 05:41] LABS: #Eosinphils 0.2 thou/uL (0.0-0.7); #Lymphocytes 1.4 thou/uL (1.20-3.40); #Monocytes 1.2 thou/uL (0.11-0.59); #Neutrophils 7.2 thou/uL (1.40-6.50); %Basophils 0.4 % (0.0-1.0); %Eosinophils 1.9 % (0.0-10.0); %Monocytes 11.6 % (0.0-10.0); Hematocrit 39.8 % (36.0-47.0); Mean Platelet Volume 7.6 fL (7.4-10.4); Red Blood Cell (RBC) Count 3.74 mill/uL (4.20-5.40)
--- NOTE | 2017-05-10 05:51 | CON ---
DATE OF CONSULTATION: 05/08/2017 CONSULTING PHYSICIAN: Kalpesh Mcgill D.O. REASON FOR CONSULTATION: Renal lesion. REASON FOR ADMISSION: Abdominal pain. HISTORY OF PRESENT ILLNESS: This is a pleasant 76-year-old female with history of hypothyroidism, h ypertension, anxiety, GERD, who came to the hospital with abdominal pain and had a CAT scan and was found to have renal lesion with concern of malignancy and Nephrology is consulted. The patient also had a Urology consult which is pending. No fever or chills. No nausea, vomiting, no chest pain, o r palpitation. PAST MEDICAL HISTORY: Positive for hypothyroidism, hypertension, anxiety, GERD. PAST SURGICAL HISTORY: Cholecystectomy, hernia repair. HOME MEDICATIONS: Omeprazole, diazepam, losartan, and Synthroid. ALLERGIES: To CODEINE, CIPRO, MACROBID, ZANAFLEX, BACTRIM and RANITIDINE. FAMILY HISTORY: No history of kidney disease. SOCIAL HISTORY: No smoking, alcohol or illicit drug abuse. REVIEW OF SYSTEMS: The following complete review of systems was negative, unless otherwise mentione d in the HPI or below: Constitutional: Weight loss or gain, ability to conduct usual activities. Skin: Rash, itching. E yes: Double vision, pain. ENT/Mouth: Nose bleeding, neck stiffness, pain, tenderness. Cardiovasc ular: Palpitations, dyspnea on exertion, orthopnea. Respiratory: Shortness of breath, wheezing, c ough, hemoptysis, fever or night sweats. Gastrointestinal: Poor appetite, abdominal pain, heartbur n, nausea, vomiting, constipation, or diarrhea. Genitourinary: Urgency, frequency, dysuria, noctur ia. Musculoskeletal: Pain, swelling. Neurologic/Psychiatric: Anxiety, depression. Allergy/Immun ologic: Skin rash, bleeding tendency. PHYSICAL EXAMINATION: GENERAL: This is a well-built female in no apparent distress. VITAL SIGNS: Temperature 98.7, pulse 78, respiratory rate 18, blood pressure 124/59. HEENT: Atraumatic, normocephalic. Oral mucosa is moist. NECK: Supple, no masses. CARDIOVASCULAR: S1, S2 heard. Rate and rhythm regular. RESPIRATORY: Clear. ABDOMEN: Soft. MUSCULOSKELETAL: No tenderness, no edema. DERMATOLOGIC: No skin rash. NEUROLOGIC: Alert and awake. PSYCHIATRIC: Mood and affect normal. LABORATORY: Potassium is 4.0, BUN 13, BUN is 8, creatinine is 0.6. ASSESSMENT AND PLAN: 1. Renal mass versus renal cyst. Follow up with Urology. Further recommendations based on Urology . Renal function is stable. 2. Chronic kidney disease stage II, stable. 3. Hypertension. Titrate medications. 4. Morbid obesity. 5. Edema, controlled. 6. We will follow with Urology for further recommendations. We will follow.
[2017-05-10 06:06] LABS: Anion Gap 14 mmol/L (10-20); BUN (Urea Nitrogen) 6 mg/dL (9.8-20.1); Calc. Creatinine Clearance 161 mL/min (70-130); Calcium 8.7 mg/dL (7.8-10.44); Carbon Dioxide 19 mmol/L (23-31); Chloride 107 mmol/L (98-107); Estimated GFR-MDRD 90
[2017-05-10] MEDS ORDERED: Lidocaine 2% Jelly 5 ML TUBE TOP SCH (08:15)
[2017-05-10] MEDS ORDERED: Benzocaine 20% Spray 60 ML CAN FS SCH (08:15)
[2017-05-10] MEDS: Sodium Chloride 0.9% 1,000 ML IV SCH ×2 (08:22→23:45)
--- NOTE | 2017-05-10 08:49 | PRG ---
DATE OF SERVICE: 05/10/2017 SUBJECTIVE: The patient has improved abdominal pain. She complains of nausea. She has not been to lerating the [place] bowel prep. She denies fevers or chills. She complains of pain in her left a bdominal area tolerating wound care. OBJECTIVE: VITAL SIGNS: Temperature 98.3, pulse is 76, respirations 16, pulse ox is 96% on room air, and d blo od pressure 127/59. GENERAL: She is awake and alert, in no acute distress. She is morbidly obese. SKIN: With large macerated area with some superficial skin ulcers in the left pannus with surroundi ng redness and tenderness throughout. HEART: Regular rate and rhythm. LUNGS: Clear but distant. ABDOMEN: Positive bowel sounds, morbidly obese, soft, nontender. EXTREMITIES: No edema. LABORATORY DATA: White blood cell count is down to 10,000, hemoglobin and hematocrit 13 and 39.8 wi th macrocytic indices, and platelets of 154. Sodium 137, potassium 3.4, chloride 107, CO2 of 19, BU N and creatinine 6 and 0.64. Accu-Cheks are stable, calcium of 8.7. ASSESSMENT: This is a 76-year-old female patient admitted for abdominal pain and found to have a fo mushtaq colitis versus mass and abnormal CAT scan. PLAN: 1. Await complete bowel prep for colonoscopy per Gastroenterology. 2. Renal cyst evaluated by Dr. Connolly, Nephrology. 3. Osteoporosis with lumbar compression fractures. Continue to manage as an outpatient. 4. Hypertension, stable. 5. Large skin wound with local cellulitis. We will continue Levaquin and Flagyl at this time. DISPOSITION: Will move to General floor, as telemetry is not needed at this time and further plan a fter colonoscopy.
[2017-05-10] MEDS: Losartan Potassium 25 MG TAB PO SCH (10:21)
[2017-05-10] MEDS: Levothyroxine Sodium 25 MCG TAB PO SCH (10:25)
--- NOTE | 2017-05-10 12:05 | RAD ---
ONE VIEW ABDOMEN: History: Status post NG tube placement. Comparison: None. FINDINGS: Nasogastric tube appears to be in the distal thoracic esophagus. Advancement is recommended. Bowel g as pattern is nonspecific. IMPRESSION: NG tube as above. Results of study discussed with Kenyetta patient's nurse, at 10:27 a.m. on 05-10-17. POS: CHARLENE
[2017-05-10] MEDS ORDERED: Glycopyrrolate 0.2 MG/ML 5 ML SYRINGE ONE (17:59)
[2017-05-10] MEDS ORDERED: Propofol 200 MG/20 ML VIAL ONE (17:59)
[2017-05-10] MEDS ORDERED: PHENYLEPHRINE-NS 100 MCG/ML 10 ML SYRINGE ONE (17:59)
[2017-05-10] MEDS ORDERED: Succinylcholine Chloride 20 MG/ML 10 ml SYRINGE FS ONE (17:59)
[2017-05-10] MEDS ORDERED: Ondansetron HCl/PF 4 MG/2 ML Vial ONE (17:59)
[2017-05-10] MEDS ORDERED: Dexamethasone 20 MG/5 ML VIAL ONE (17:59)
[2017-05-10] MEDS ORDERED: Ondansetron HCl/PF 4 MG/2 ML Vial IVP PRN (19:11)
[2017-05-10] MEDS ORDERED: Promethazine HCl 25 MG/ML VIAL ONE (20:04)
[2017-05-10] MEDS: Polyethylene Glycol 3350 17 GM Packet PO SCH (23:28)
--- NOTE | 2017-05-11 00:32 | OP ---
DATE OF PROCEDURE: 05/10/2017 PROCEDURE: Colonoscopy with biopsy. PREOPERATIVE DIAGNOSIS: Abnormal CT scan showing possible calcified mass at the splenic flexure. T his was causing partial obstruction of the colon. PROCEDURE IN DETAIL: Informed consent was obtained. The patient was sedated with general anesthesi a. The colonoscope was advanced to the cecum, where the ileocecal valve and appendiceal orifice wer e clearly identified. The preparation quality was fair to poor. There was a very large stool ball located at the splenic flexure at a level of ulceration at the splenic flexure, which was one-half c ircumferential. Biopsies were obtained from the ulcerated area. The stool ball was broken apart wi th a polypectomy snare. The colonic mucosa proximal to that was normal. There was mild to moderate sigmoid diverticulosis. The prep was worse in the more distal colon. The patient taken full logan n of GoLYTELY; however, had no bowel movement following the prep. IMPRESSION: 1. Multiple ulcerations at the splenic flexure either ischemic versus stercoral. 2. Large hard stool ball at the splenic flexure. This was broken apart with a polypectomy snare an d advanced distal to the ulcerated segment. 3. Diverticulosis, mild to moderate in the sigmoid colon. 4. Otherwise, normal colonoscopy to the cecum with fair to poor bowel prep. RECOMMENDATIONS: 1. Start full liquid diet. 2. MiraLax 17 grams twice daily. 3. Await histopathology.
[2017-05-11] MEDS: Levothyroxine Sodium 25 MCG TAB PO SCH ×2 (05:42→05:46)
[2017-05-11] MEDS: metroNIDAZOLE 500 MG in Premix Bag 1 BAG IVPB SCH ×3 (05:42→22:54)
[2017-05-11] MEDS: Metoclopramide HCl 10 MG/2 ML VIAL IVP SCH ×3 (05:44→11:08)
[2017-05-11] MEDS: Losartan Potassium 25 MG TAB PO SCH (08:44)
[2017-05-11] MEDS: Polyethylene Glycol 3350 17 GM Packet PO SCH ×3 (08:46→20:36)
[2017-05-11 09:30] LABS: #Lymphocytes 0.4 thou/uL (1.20-3.40); #Monocytes 0.2 thou/uL (0.11-0.59); #Neutrophils 8.9 thou/uL (1.40-6.50); %Eosinophils 0.3 % (0.0-10.0); %Lymphocytes 4.5 % (21.0-51.0); %Monocytes 2.4 % (0.0-10.0); Hematocrit 37.4 % (36.0-47.0); Mean Platelet Volume 6.9 fL (7.4-10.4); White Blood Cell (WBC) Count 9.6 thou/uL (4.8-10.8)
[2017-05-11 09:47] LABS: Anion Gap 17 mmol/L (10-20); BUN (Urea Nitrogen) 6 mg/dL (9.8-20.1); Calc. Creatinine Clearance 151 mL/min (70-130); Calcium 8.7 mg/dL (7.8-10.44); Carbon Dioxide 19 mmol/L (23-31); Chloride 106 mmol/L (98-107); Estimated GFR-MDRD 84
[2017-05-11 12:59] VITALS: BMI 51.3
[2017-05-11] MEDS: Potassium Chloride 20 MEQ TAB PO SCH ×2 (13:25→13:34)
[2017-05-11] MEDS ORDERED: Potassium Chloride 40 MEQ, Admixture Fee 1 EACH in Sodium Chloride 0.9% 250 ML 250 ML IVPB SCH (13:45)
--- NOTE | 2017-05-11 14:07 | PRG ---
DATE OF SERVICE: 05/11/2017 HISTORY OF PRESENT ILLNESS: Ms. Sahni is hospital day #4. She underwent a colonoscopy yesterday per Dr. Grayson. She was found to have ulcers near the splenic flexure and a large firm stool ball th at was likely causing stercoral ulcers. The stool ball was apparently broken apart with polypectomy and colonoscopy was completed to the cecum. In spite of this, she apparently has not had any bowel movements today. MiraLax has been ordered twice a day, but apparently she has refused it the last 2 times. She is very comfortable being noncompliant here in the hospital. She is tolerating a soft diet today and has no specific complaints. PHYSICAL EXAMINATION: VITAL SIGNS: She is afebrile, pulse is 79, blood pressure 123/69. ABDOMEN: Her abdomen is massively obese, but soft and nontender with normoactive bowel sounds. ASSESSMENT: Patient with apparent transverse colon obstruction secondary to a large stool ball. Ho pefully, with his broken up she will resume some form of normal bowel function and may be able to be discharged home soon.
[2017-05-11] MEDS: Ondansetron HCl/PF 4 MG/2 ML Vial IVP PRN ×2 (14:31→20:40)
--- NOTE | 2017-05-11 17:24 | PRG ---
DATE OF SERVICE: 05/11/2017 SUBJECTIVE: Ms. Sahni is passing a lot of gas, but actually not a lot of stool so far today. She is tolerating her diet with no vomiting, but says she remains nauseated. She has been feeling weak , not really wanting to get up and walk around. OBJECTIVE: VITAL SIGNS: Temperature 98.9, pulse 71, blood pressure 116/66, 95% oxygen saturation on room air. GENERAL: No acute distress, lying in bed comfortably. HEART: Regular rate and rhythm. LUNGS: Clear to auscultation bilaterally. ABDOMEN: Soft and nontender to palpation. EXTREMITIES: No peripheral edema. LABORATORY STUDIES: WBC 9.6, hemoglobin 12.2, platelets 209. Sodium 139, potassium 2.8, BUN 6, cre atinine 0.68. ASSESSMENT AND PLAN: 1. Stercoral ulcer at the splenic flexure, due to stool impaction in that area, now broken up and d isimpacted by Dr. Grayson during colonoscopy yesterday. 2. Chronic constipation. 3. Nausea. I think it is obvious, the patient has had more significant issues with chronic constip ation than she had let on earlier this admission. Thankfully, Dr. Grayson was able to disimpact that stool ball, which had created a stercoral ulcer at the splenic flexure. There is no evidence of any obstructive process. I think she is just going to require more aggressive bowel regimen going forw breanne. I emphasized with her the importance of taking the MiraLax. She ought to take this at least t wice per day. Continue the stool softener. She is tolerating her diet, I would like to discontinue the Reglan that was started a couple of days ago. Use Zofran p.r.n. for nausea instead.
[2017-05-11] MEDS: Sodium Chloride 0.9% 1,000 ML IV SCH (18:37)
[2017-05-11] MEDS: Diazepam 5 MG TAB PO PRN (20:40)
--- NOTE | 2017-05-12 00:11 | PRG ---
DATE OF SERVICE: 05/11/2017 SUBJECTIVE: The patient is feeling some better. She tolerated the colonoscopy yesterday. She stat es that she is passing gas but has not had a bowel movement and she has been eating okay but with so me nausea. She continues to feel weak, has not been able to get out of bed much. She is happy abou t being able to have the colonoscopy done and feels like she is wanting to go home at this time. OBJECTIVE: VITAL SIGNS: This morning, temperature 98.6, pulse of 76, respirations 20-22, blood pressure 120/56 , pulse ox is 94% on room air. GENERAL: She is awake and alert, in no acute distress. She is comfortable in bed. HEENT: Mucosa is moist. NECK: Supple. HEART: Regular rate and rhythm. LUNGS: Distant. ABDOMEN: Morbidly obese, positive bowel sounds, soft, nontender, nondistended. EXTREMITIES: With no edema. LABORATORY DATA: White blood cell count down to 9.6, hemoglobin and hematocrit 12.2 and 37.4 with m acrocytic indices, platelets of 209. Sodium 139, potassium 2.8, chloride 106, CO2 of 19, BUN and cr eatinine 6 and 0.68, serum glucose of 135. Colonoscopy report per Dr. Grayson revealed multiple ulcer ations in the splenic flexure, large hard stool ball in the splenic flexure, which was broken apart, diverticulosis in the sigmoid colon. ASSESSMENT AND PLAN: 1. This is a 76-year-old female patient admitted for persistent abdominal pain and found to have a colonic mass. Colonoscopy revealed that the stool impaction which was broken up and disimpacted on colonoscopy. She has ulcerations in the splenic flexure. 2. Chronic constipation. 3. Hypokalemia. Potassium replacement has been initiated. 4. Persistent nausea. We will attempt to increase her activity and get her moving more to help wit h this. We will initiate PT and OT to increase her activity level. 5. Osteoporosis with lumbar compression fractures. We will manage as an outpatient. She appears t o be comfortable as far as the pain management. 6. Large skin wound with local cellulitis. We will probably stop the Flagyl due to no sign of heath l infection and change the Levaquin to an antibiotic that would cover a skin candido. DISPOSITION: Await PT, OT evaluation. She may need residential or rehabilitation before she go es home safely.
[2017-05-12] MEDS: Levothyroxine Sodium 25 MCG TAB PO SCH (05:53)
[2017-05-12 06:04] LABS: Anion Gap 13 mmol/L (10-20); BUN (Urea Nitrogen) 10 mg/dL (9.8-20.1); Calc. Creatinine Clearance 146 mL/min (70-130); Calcium 9.3 mg/dL (7.8-10.44); Carbon Dioxide 22 mmol/L (23-31); Chloride 106 mmol/L (98-107); Estimated GFR-MDRD 81
[2017-05-12] MEDS ORDERED: Potassium Chloride 20 MEQ TAB PO SCH (08:00)
[2017-05-12] MEDS: Polyethylene Glycol 3350 17 GM Packet PO SCH ×2 (09:33→21:53)
[2017-05-12] MEDS: Losartan Potassium 25 MG TAB PO SCH (09:36)
[2017-05-12] MEDS: Cephalexin 250 MG CAP PO SCH ×4 (09:36→21:53)
[2017-05-12] MEDS: hydrALAZINE 25 MG TAB PO SCH ×2 (09:36→21:56)
--- NOTE | 2017-05-12 12:15 | PRG ---
DATE OF SERVICE: 05/12/2017 SUBJECTIVE: The patient is feeling some better. She continues to complain of nausea. She feels we ak, has not been ill to get out of bed. She is not wanting to move very much. She is not wanting t o take all of her medicines. She complains of her potassium pill being too big. She states that s he has lot of restlessness and has a hard time sleeping, has not been cooperative with nursing. She was able to have colonoscopy done, but still no bowel movement, has poor p.o. intake. OBJECTIVE: VITAL SIGNS: Temperature 98.5, pulse of 85, respirations 18, blood pressure 175/73. GENERAL: She is awake and alert. She is uncomfortable. HEENT: Mucosa is moist. NECK: Supple. HEART: Regular rate and rhythm. LUNGS: Clear. ABDOMEN: With diffuse bowel sounds throughout. No tenderness. No rebound. EXTREMITIES: No edema. No calf tenderness. LABORATORY DATA: White blood cell count 9,600, hemoglobin and hematocrit are 12.2 and 37.4, platele ts of 209. Sodium 138, potassium 3.0, chloride 106, CO2 22, BUN and creatinine are 10 and 0.7. Ser um glucose was 116. ASSESSMENT AND PLAN: 1. This is a 76-year-old morbidly obese patient admitted for persistent abdominal pain and found to have a colonic mass. Colonoscopy revealed severe stool impaction, which was broken up on colonosco py. She continues to have ulcerations in the splenic flexure. 2. Chronic constipation. Discussed with patient about the importance of taking her MiraLax every d ay and stool softener, otherwise she did have another stool impaction. 3. Hypokalemia, has improved. We will continue potassium replacement, but switch to a liquid. 4. Nausea seems to be improved. I discussed the importance of her getting out of bed and walking. PT and OT to see her today. 5. Osteoporosis with lumbar compression fractures. It appears to be stable and not bothering her v sandro much, not a good surgical candidate for vertebroplasty. 6. Large skin wound with local cellulitis and started on cephalexin for better skin. Lynda coverag e, we will continue wound care both as an inpatient and outpatient. DISPOSITION: The patient wants to go home. Family feels like they can take care of her at home. I discussed the importance of her getting out of bed and walking as well as having a bowel movement yumiko melchor to discharge home.
[2017-05-13] MEDS: Levothyroxine Sodium 25 MCG TAB PO SCH (05:38)
[2017-05-13] MEDS: Losartan Potassium 25 MG TAB PO SCH (07:47)
[2017-05-13] MEDS: Cephalexin 250 MG CAP PO SCH ×2 (07:48→15:39)
[2017-05-13] MEDS: hydrALAZINE 25 MG TAB PO SCH (07:49)
[2017-05-13] MEDS: Polyethylene Glycol 3350 17 GM Packet PO SCH (07:49)
[2017-05-13 14:25] VITALS: BP 146/67; TEMP 98.5
--- NOTE | 2017-05-14 20:52 | DIS ---
DATE OF ADMISSION: 05/07/2017 DATE OF DISCHARGE: 05/13/2017 ADMISSION DIAGNOSES: Abdominal pain, colitis, urinary tract infection, sepsis syndrome and kidney mass. DISCHARGE DIAGNOSES: 1. Abdominal pain, resolved. 2. Stercoral ulcer at the splenic flexure. 3. Stool impaction. 4. Chronic constipation. 5. Nausea. 6. Hypokalemia 7. Yeast dermatitis with cellulitis OTHER DIAGNOSES: 1. Morbid obesity. 2. Noncompliance. 3. Chronic panniculitis. CONSULTATIONS: Dr. Castillo for GI, Dr. Lucho Connolly for Urology, Dr. Wilson for Nephrology and Dr. Liz for Surgery. HOSPITAL COURSE: This is a 76-year-old morbidly obese female with a little mobility, presents to the Emergency Department with worsening of abdominal pain , nausea and vomiting. She states that she was having some fevers at home. She was given Levaquin and Flagyl in the ER, also morphine for pain relief. On admission, she was found to have an elevated white blood cell count with a slight left shift. CT of the abdomen revealed evidence of colitis and a left kidney mass. GI was consulted at this time for evaluation as well as Nephrology on admission due to the kidney mass. She was continued on IV Flagyl and IV Levaquin. She was seen by Lucho Connolly for Urology due to the renal mass. He felt like it was more due to renal cyst, which was benign in nature and could be worked up as an outpatient. Dr. Castillo saw the patient in evaluation due to the abdominal pain, evidence of colitis and possible sepsis syndrome. He noted that the patient had an EGD and colonoscopy in 2011. He recommended proceeding with the colonoscopy and agreed with the Urologic evaluation for the renal mass. Unfortunately, the patient was not compliant with being able to take the colon prep and Dr. Castillo felt like it would not be of use to proceed with the colonoscopy with improper prep. The patient was encouraged to continue to complete the bowel prep for a proper and safe test. Dr. Castillo recommended evaluation by Surgery due to the colonic mass and possible obstruction. Dr. Liz saw the patient for evaluation. He felt like it was a calcified mass, potentially a bezoar; it did not seem like it was a malignancy. He agreed with trying to proceed with the colonoscopy as the patient was at significant surgical risk. Dr. Wilson saw the patient for evaluation due to chronic kidney failure and with a mass. He recommended following with Urology. He did not think there is anything to be done at this time as far as a Nephrology standpoint. The patient continued to be unable to proceed with the bowel prep. An NG tube was placed, so that the GoLYTELY could be passed into her system and continue with the prep as well as a Fleet's enema that was performed. The patient finally was able to have the colonoscopy done on 05/10, by Dr. Grayson. He felt like the prep quality was fair to poor, but he did find a very large stool ball at the splenic flexure at the level of ulceration. Biopsies were done at the ulcerated areas. A stool ball was broken apart with the polypectomy snare. GI recommended that it is very important for her to continue the MiraLax twice a day every day. Following the colonoscopy, she was able to have bowel movements. She had poor p.o. intake and had not been out of bed. She had persistent nausea, which slowly improved. Once physical therapy was initiated she was encouraged to get out of bed and participate with physical therapy as well as taking her medicines as prescribed by the physicians and offered by the nurses. The patient continued to want to go home. A home health was arranged for home health physical therapy as well as wound care for the large panniculitis. She was continued on the p.o. cephalexin for this and stable for discharge on the day of discharge. DISCHARGE PHYSICAL EXAMINATION: VITAL SIGNS: Temperature 98.5, pulse of 83, respirations 22, blood pressure 146 /67 and pulse ox is 95% on room air. GENERAL: She is awake and alert, in no acute distress. She appeared uncomfortable and not happy in bed. NECK: Supple. HEART: Regular rate and rhythm. LUNGS: Clear. ABDOMEN: With positive bowel sounds. Soft with no tenderness. She did have a large area of macerated red area under her left pannus. No abscesses, no fluctuance. EXTREMITIES: No edema. DISCHARGE LABS: White blood cell count 9.6 thousand, hemoglobin and hematocrit 12.2 and 37.4, platelets of 209. Sodium 138, potassium 3.0, chloride 106, CO2 of 22, BUN and creatinine 10 and 0.7. Serum glucose was 116. DISCHARGE MEDICATIONS: Include Tylenol p.r.n., cephalexin 500 mg q.i.d., Valium 2.5 mg at bedtime, Synthroid 25 mcg daily, loratadine 10 mg p.r.n., losartan 100 mg daily, nystatin 1 gram to skin until cleared, MiraLax 17 grams p.o. b.i.d., potassium chloride 20 mEq daily until follow up as an outpatient, hydralazine 25 mg b.i.d., omeprazole 40 mg daily and levothyroxine 25 mg daily. FOLLOWUP INSTRUCTIONS: Patient to follow up with my office in 1-[address] Castillo for GI. MTDD
--- NOTE | 2017-05-17 13:33 | PQF ---
DAE TORIBIOKAITLYNN DO [id number] CLINICAL DOCUMENTATION CLARIFICATION FORM: POST DISCHARGE Please clarify if documented "Sepsis syndrome" can be further specified or ruled-out. DC SUMMARY- ADMISSION DIAGNOSES: Abdominal pain, colitis, urinary tract infection, sepsis syndrome, and kidney mass. DISCHARGE DIAGNOSES: Abdominal pain resolved, Stercoral ulcer at the splenic flexure, Stool impaction, chronic constipation, Yeast dermatitis with cellulitis. HOSPITAL COURSE: ...."Dr. Castillo saw the patient in evaluation due to the abdominal pain, evidence of colitis and possible sepsis syndrome." "...colonoscopy done on 05/10,...did find a very large stool ball at the splenic flexure at the level of ulceration". PN 05/11; "Large skin wound with local cellulitis. We will probably stop the Flagyl due to no sign of bowel infection and change the Levaquin to an antibiotic that would cover a skin candido". Please exercise your independent, professional judgment in responding to the clarification form. Clinical indicators are provided on the bottom of this form for your review Please check appropriate box(s): [ ] Sepsis due to: (Pna, UTI, gangrenous gall bladder, etc.) Due to: [ ] Device (please specify) [ ] Implant [ ] Graft [ ] Infusion [ ] Sepsis due to non-infectious process (please specify etiology) [ ] SIRS due to non-infectious process (please specify etiology) [ ] with organ dysfunction [ ] without organ dysfunction [ ] Severe sepsis with acute organ dysfunction of: (Examples: respiratory failure, encephalopathy, acute kidney failure, other) [ X ] Localized infection without sepsis [ ] Other diagnosis [ ] Unable to determine [ ] Ruled out condition In addition, please specify: Present on Admission (POA): [ ] Yes [ ] No [ ] Unable to determine CLINICAL INDICATORS - SIGNS / SYMPTOMS / LABS Altered mental status Fever or hypothermia (<96.8 F/36 C or > 100.4 F/38C) Respiratory rate >22/min, Hypoxemia, SBP <100mmHg Metabolic acidosis Lactic Acid >2mmol/L, Increase BUN/Manager Assembly, decrease GFR, coag abnormalities, thrombocytopenia-plts <100k Oliguria Shock-hypotension resistant to IV fluid boluses WBC count (>12,000/mm^4 or <4000/mm^3 or 10% neuts, 10% bands) Hyperglycemia in absence of diabetes mellitus Positive blood cultures RISK FACTORS Infection/Bacteremia Pneumonia, UTI, infected wound, gangrenous gall bladder Diabetes or Cancer Surgery / surgical instrumentation / trauma Ruptured/perforated bowel, ruptured appendix Immunosuppression Advancing Age TREATMENTS: Initiation Sepsis Protocol ICU Daily CBC Blood/sputum/wound cultures ID Consult IV antibiotics - broad spectrum IV fluids Vasopressors, meds (This form is maintained as a part of the permanent medical record) 2014 [employer]. All Rights Reserved [email or web address] [phone] JESSICA
== END 2017-05-13 15:40 | disposition home health service (06) | DRG 394 ==
LOC: ERS 13:49 → 2NO 17:30 → T4-B 05-10 17:37
PROVIDERS: ADMIT Family Medicine; ATTEND Family Medicine
PROC: 0DBL8ZX Excision of Transverse Colon, Via Natural or Artificial Opening Endoscopic, Diagnostic (ICD-10-PCS; principal; 2017-05-10)
DX: K63.3 Ulcer of intestine (principal); L03.311 Cellulitis of abdominal wall; N28.1 Cyst of kidney, acquired; Z68.43 Body mass index [BMI] 50.0-59.9, adult; D64.9 Anemia, unspecified; B37.2 Candidiasis of skin and nail; K52.9 Noninfective gastroenteritis and colitis, unspecified; K56.41 Fecal impaction; E66.01 Morbid (severe) obesity due to excess calories; E87.6 Hypokalemia; M79.3 Panniculitis, unspecified; K59.09 Other constipation; Z91.14 Patient's other noncompliance with medication regimen; N18.2 Chronic kidney disease, stage 2 (mild); K57.30 Diverticulosis of large intestine without perforation or abscess without bleeding; M80.88XD Other osteoporosis with current pathological fracture, vertebra(e), subsequent encounter for fracture with routine healing; E03.9 Hypothyroidism, unspecified; K21.9 Gastro-esophageal reflux disease without esophagitis; F41.9 Anxiety disorder, unspecified; I12.9 Hypertensive chronic kidney disease with stage 1 through stage 4 chronic kidney disease, or unspecified chronic kidney disease
CPT/HCPCS: 36415; 36416; 51701; 71010; 74018; 74177; 80048; 80053; 81003; 81015; 82553; 83605; 83690; 83880; 84484; 85025; 87040; 87070; 87077; 87086; 87186; 87205; 88305; 93005; 96361; 96365; 96367; 96375; 96376; A4216; A4353; G8978-GP-CM; G8979-GP-CK; J1100; J1956; J2270; J2405; J2550; J2704; J2765; J3480; J7050

== ENCOUNTER 2017-05-29 12:24 | Emergency (ER) | payer MEDICARE, MEDICAID ==
[2017-05-29 13:14] LABS: Lactic Acid - Sepsis 2.3 mmol/L (0.5-2.2)
[2017-05-29] MEDS ORDERED: Ondansetron HCl/PF 4 MG/2 ML Vial ONE (13:17)
[2017-05-29 13:19] LABS: ALT (SGPT) 10 U/L (8-55); AST (SGOT) 24 U/L (5-34); Alkaline Phosphatase 77 U/L (40-150); Anion Gap 17 mmol/L (10-20); BUN (Urea Nitrogen) 6 mg/dL (9.8-20.1); Bilirubin, Total 0.6 mg/dL (0.2-1.2); CK (CPK) 35 U/L (29-168); Calc. Creatinine Clearance 0 mL/min (70-130); Calcium 8.9 mg/dL (7.8-10.44); Carbon Dioxide 27 mmol/L (23-31); Chloride 99 mmol/L (98-107); Estimated GFR-MDRD 80; Globulin 3.4 g/dL (2.4-3.5); Lipase 13 U/L (8-78); Protein, Total 6.2 g/dL (6.0-8.3)
[2017-05-29 13:21] LABS: Hematocrit 38.8 % (36.0-47.0); Mean Platelet Volume 6.5 fL (7.4-10.4); Red Blood Cell (RBC) Count 3.68 mill/uL (4.20-5.40); White Blood Cell (WBC) Count 6.6 thou/uL (4.8-10.8)
[2017-05-29 13:22] LABS: Neutrophil 76 % (42-75)
[2017-05-29 13:23] LABS: Troponin I Less than 0.010 ng/mL (< 0.028)
--- NOTE | 2017-05-29 15:02 | RAD ---
PORTABLE FRONTAL CHEST RADIOGRAPH: DATE: 05/29/17. COMPARISON: 05/07/17 and 03/19/16. History Weakness and loss of appetite. FINDINGS: There is prominence of the right paratracheal stripe, similar when compared to numerous prior examina tions, suggesting vascular prominence. Cardiac silhouette is prominent, stable as well. No pneumoth orax, pleural fluid, focal consolidation, or alveolar edema. IMPRESSION: No acute findings. POS: JUDITH
[2017-05-29 16:14] LABS: Bilirubin Small (Negative); Blood, Urine Large (Negative); Glucose, Urine (Dipstick) Negative (Negative); Ketone, Urine 15 mg/dL (Negative); Nitrite Positive (Negative); Protein, Urine (Dipstick) 30 mg/dL (Neg-Trace)
[2017-05-29 16:15] LABS: Bacteria/HPF 4+ HPF (None Seen); Hyaline Casts/LPF 0-3 HYALINE CAST LPF (0-3 Hyaline); RBC/HPF GREATER THAN 50-TNTC HPF (0-3); Squamous Epithelial 0-3 HPF (0-3)
[2017-05-29] MEDS ORDERED: cefTRIAXone\\ROCEPHIN 2 GM in Sodium Chloride 0.9% 100 ML IVPB SCH (16:45)
== END 2017-05-29 18:12 | disposition home or self-care (01) ==
LOC: ERS 12:24
DX: N30.90 Cystitis, unspecified without hematuria (principal); R53.1 Weakness; E66.9 Obesity, unspecified; E34.9 Endocrine disorder, unspecified; F41.9 Anxiety disorder, unspecified; I10 Essential (primary) hypertension
CPT/HCPCS: 36415; 51701; 71010; 80053; 81003; 81015; 82553; 83605; 83690; 83735; 83880; 84484; 85025; 87077; 87086; 87186; 93005; 96361; 96365; 96375; A4353; J0696; J2405; J7050

== ENCOUNTER 2017-11-10 14:22 | Emergency (ER) | payer MEDICARE, MEDICAID ==
[2017-11-10] MEDS ORDERED: Glycerin SUPP 1 EACH ONE (15:36)
[2017-11-10] MEDS ORDERED: Acetaminophen 325 MG TAB ONE (16:30)
== END 2017-11-10 17:56 | disposition home or self-care (01) ==
LOC: ERS 14:22
DX: K59.00 Constipation, unspecified (principal); E03.9 Hypothyroidism, unspecified; I10 Essential (primary) hypertension; E66.9 Obesity, unspecified; Z79.899 Other long term (current) drug therapy; Z79.891 Long term (current) use of opiate analgesic
CPT/HCPCS: 99283

== ENCOUNTER 2017-11-12 14:31 | Observation (INO) | payer MEDICARE, MEDICAID ==
[2017-11-12] MEDS ORDERED: Fleet Enema 133 ML BOT PR SCH (15:30)
[2017-11-12 15:49] LABS: #Eosinphils 0.2 thou/uL (0.0-0.7); #Lymphocytes 1.7 thou/uL (1.20-3.40); #Monocytes 1.2 thou/uL (0.11-0.59); #Neutrophils 6.3 thou/uL (1.40-6.50); %Basophils 0.2 % (0.0-1.0); %Eosinophils 2.4 % (0.0-10.0); %Lymphocytes 17.7 % (21.0-51.0); %Monocytes 12.9 % (0.0-10.0); %Neutrophils 66.8 % (42.0-75.0); Hemoglobin 12.5 g/dL (12.0-16.0); Mean Corpuscular Hemoglobin 36.1 pg (27.0-31.0); Mean Platelet Volume 6.9 fL (7.4-10.4); Platelet Count 229 thou/uL (130-400); RBC Distribution Width 11.6 % (11.5-14.5); Red Blood Cell (RBC) Count 3.46 mill/uL (4.20-5.40); White Blood Cell (WBC) Count 9.5 thou/uL (4.8-10.8)
[2017-11-12] MEDS ORDERED: Morphine 4 MG/ML VIAL ONE (15:51)
[2017-11-12 15:55] LABS: INR-International Normal Ratio 1.2; Prothrombin Time 15.2 SEC (12.0-14.7)
[2017-11-12 15:56] LABS: PTT 39.6 SEC (22.9-36.1)
[2017-11-12 16:08] LABS: Anion Gap 10 mmol/L (10-20); BUN (Urea Nitrogen) 14 mg/dL (9.8-20.1); Calc. Creatinine Clearance 0 mL/min (70-130); Calcium 9.9 mg/dL (7.8-10.44); Carbon Dioxide 28 mmol/L (23-31); Chloride 101 mmol/L (98-107); Estimated GFR-MDRD 73; Glucose 115 mg/dL (83-110); Sodium 135 mmol/L (136-145)
[2017-11-12 16:51] LABS: Bilirubin Negative (Negative); Blood, Urine Negative (Negative); Clarity CLEAR (Clear); Glucose, Urine (Dipstick) Negative (Negative); Leukocyte Negative (Negative); Nitrite Negative (Negative); Protein, Urine (Dipstick) Negative (Neg-Trace); Specific Gravity, Urine 1.014 (1.002-1.036)
[2017-11-12] MEDS ORDERED: Ondansetron HCl/PF 4 MG/2 ML Vial IVP PRN (20:00)
[2017-11-12] MEDS ORDERED: Ondansetron ODT 4 MG TAB SL PRN (20:00)
[2017-11-12] MEDS ORDERED: Diazepam 5 MG TAB PO PRN (20:39)
[2017-11-12] MEDS ORDERED: GoLYTELY 4,000 ml Bottle PO SCH (21:00)
[2017-11-12] MEDS: Acetaminophen 325 MG TAB PO PRN (22:01)
[2017-11-12 22:35] VITALS: BMI 48.1
[2017-11-12] MEDS ORDERED: Magnesium Citrate 300 ML BOT PO SCH (23:00)
[2017-11-13] MEDS ORDERED: Levothyroxine Sodium 25 MCG TAB PO SCH (06:00)
[2017-11-13 06:01] LABS: Anion Gap 9 mmol/L (10-20); BUN (Urea Nitrogen) 13 mg/dL (9.8-20.1); Calc. Creatinine Clearance 114 mL/min (70-130); Calcium 9.1 mg/dL (7.8-10.44); Carbon Dioxide 29 mmol/L (23-31); Chloride 102 mmol/L (98-107); Estimated GFR-MDRD 77; Glucose 98 mg/dL (83-110); Potassium 3.4 mmol/L (3.5-5.1); Sodium 137 mmol/L (136-145)
[2017-11-13] MEDS ORDERED: Metoclopramide HCl 10 MG TAB PO PRN (10:41)
[2017-11-13] MEDS: Acetaminophen 325 MG TAB PO PRN ×2 (10:42→19:09)
[2017-11-13] MEDS: Losartan 25 MG TAB PO SCH (10:42)
[2017-11-13] MEDS: Senokot S 8.6-50 MG TAB PO SCH ×2 (10:42→20:02)
[2017-11-13] MEDS: Levothyroxine Sodium 25 MCG TAB PO SCH (10:43)
[2017-11-13] MEDS: Polyethylene Glycol 3350 17 GM Packet PO SCH ×4 (10:43→20:03)
[2017-11-13] MEDS ORDERED: Metoclopramide HCl 10 MG TAB PO SCH (11:30)
--- NOTE | 2017-11-13 12:11 | HP ---
DATE OF ADMISSION: 11/12/2017 PRIMARY CARE PHYSICIAN: Isaias Foster D.O. CHIEF COMPLAINT: Intractable constipation with nausea and bladder retention. HISTORY OF PRESENT ILLNESS: The patient presented to the Emergency Department on the where a Fl eets enema and laxatives were given. Manual disimpaction was attempted with palpable stool ball, but was unable to be disimpacted manually. The patient was sent home with laxatives. The patient start ed to have diarrhea. The patient's daughter felt she had be given too strong medication and started Imodium. The patient began to have worsening abdominal pain, nausea, no emesis was present, bounce b ack to the Emergency Department yesterday on the . Repeat Fleets enema attempted without relief and manual disimpaction failed. Overnight, the patient had a soapsuds enema with only minor resolved . The patient refused to go likely secondary to prior bowel prep, the patient had emesis with. The patient succeeded in getting down to 80% of the magnesium citrate. The patient feels more comfortabl e with MiraLax at this point in time, does not want bowel prep. The patient states she has lower uri nary symptoms with some retention. Urinalysis in the Emergency Department was unremarkable. The pat ient without fevers, no bilious emesis, positive guaiac following multiple enemas and disimpaction at tempts from Emergency Department evaluation. REVIEW OF SYSTEMS: No fevers, no chills, no cough or congestion. No chest pain, no shortness of calos ath. Positive nausea. Negative emesis, positive constipation, positive encopresis diarrhea. No ezio ss blood in diarrhea, no flank pain. No lower extremity edema. No syncopal episodes, no headache. ALLERGIES: CODEINE, CIPRO, MACROBID, ZANTAC, ZANAFLEX, and BACTRIM. PAST MEDICAL HISTORY: Includes, morbid obesity, congestive heart failure, chronic constipation, depr ession, anxiety, diabetes, hypertension, GERD, left kidney cyst versus mass, and hypothyroidism. HOME MEDICATIONS: Include, losartan, Zofran, nystatin, omeprazole, cetirizine 10 mg, MiraLax once da hari, Remeron 15 mg, tramadol 50 mg, potassium chloride 10 mEq twice daily, Requip 1 mg, Lasix 20 mg, levothyroxine 25 mcg, align 4 mg, diazepam 1-1/2 tab twice daily p.r.n. anxiety. PAST SURGICAL HISTORY: Includes, cholecystectomy, colonoscopy, repair of hernia, prior intestinal ru pture in 2013. SOCIAL HISTORY: Patient is a nonsmoker. Does not drink. Primary caregiver is daughter. PHYSICAL EXAMINATION: VITAL SIGNS: On arrival to floor 98.2 temperature, pulse of 71, respiratory rate of 20, oxygen satur ation 96% on room air, and blood pressure 103/62. LABORATORY WORK: UA unremarkable. Sodium of 137, potassium of 3.4, carbon dioxide of 29, creatinine of 0.73, glucose of 98, calcium of 9.1. TSH of 3.7. INR 1.2. White blood cell count of 9.5, hemog lobin of 12.5, platelet count of 229. Occult blood stool guaiac positive, pending KUB read. PHYSICAL EXAMINATION: GENERAL: The patient is in some distress, reporting abdomen pain, most specifically dysuria, urinary retention symptoms, requesting Carroll, bladder scan at bedside showed 169, residual following diarrhe a and urination minutes prior. HEENT: Head is normocephalic, atraumatic. Extraocular movements are intact. NECK: Supple. The patient is morbidly obese. HEART: Regular rate and rhythm. No murmurs auscultated. LUNGS: Clear to auscultation bilaterally, diminished breath sounds secondary to body habitus. ABDOMEN: Soft, nontender, positive bowel sounds throughout. No rebound or guarding. EXTREMITIES: Lower extremities without cyanosis or edema. NEURO: The patient is alert and oriented x3, no focal deficits. Speech is normal. Mood: The patie nt is somewhat hysterical or her current situation. ASSESSMENT AND PLAN: Constipation, urinary retention, hypertension, hypothyroidism. Given the patie nt refusing GoLYTELY bowel prep, we will increase MiraLax to q.i.d. We will initiate Senokot-S 2 tab lets b.i.d. for stimulant laxative, soapsuds enema with only minor to moderate relief. Depending on KUB read may repeat versus consider glycerin suppository or additional Fleets enemas may also conside r gastroenterology's input; however, may have to place NG tube and give bowel prep through that if no relief following today's efforts. Placed Carroll catheter while patient is being undergone bowel prep . Plan to discontinue as soon as possible. May consider something for bladder spasms; however, atte mpting to minimize medication secondary to constipating effort or many outpatient's home medications including such medications as Requip and tramadol, continuing the patient's home losartan and levothy roxine. TSH is in normal limits. Continuing pantoprazole regarding patient's GERD, currently no out of range. Blood glucose on admission and recheck no medications currently. The patient is currentl y diet controlled. We will hold patient's diet secondary to constipation and attempts to avoid any i ncreased risk for bowel perforation or obstruction. At this point in time, we will allow patient to have clear liquids. Patient is currently under observation, reports she is too weak to stand. We wi ll get physical therapy to walk patient and evaluate at this point allegedly question of the patient' s compliance with medications at home. We will speak with Dr. Foster about taking over care.
--- NOTE | 2017-11-13 12:32 | RAD ---
ONE VIEW ABDOMEN: HISTORY: Constipation. COMPARISON: None. FINDINGS: Nonspecific bowel gas pattern. No evidence of significant fecal material in the colon. Minimal feca l material in the right hemicolon is noted. Stable phleboliths. There is diffuse bone demineralization with chronic changes involving the right hip. IMPRESSION: No radiographic evidence of constipation. POS: CHARLENE
[2017-11-13] MEDS ORDERED: rOPINIRole HCl 0.5 MG TAB PO SCH (21:00)
[2017-11-14] MEDS: Acetaminophen 325 MG TAB PO PRN ×2 (03:47→07:59)
[2017-11-14 05:13] LABS: Anion Gap 11 mmol/L (10-20); BUN (Urea Nitrogen) 10 mg/dL (9.8-20.1); Calc. Creatinine Clearance 126 mL/min (70-130); Calcium 9.3 mg/dL (7.8-10.44); Carbon Dioxide 27 mmol/L (23-31); Chloride 102 mmol/L (98-107); Estimated GFR-MDRD 87; Glucose 83 mg/dL (83-110); Potassium 3.6 mmol/L (3.5-5.1); Sodium 136 mmol/L (136-145)
[2017-11-14] MEDS: Losartan 25 MG TAB PO SCH (08:00)
[2017-11-14] MEDS: Levothyroxine Sodium 25 MCG TAB PO SCH ×2 (08:00→08:03)
[2017-11-14] MEDS: Senokot S 8.6-50 MG TAB PO SCH (08:00)
[2017-11-14] MEDS: Polyethylene Glycol 3350 17 GM Packet PO SCH ×2 (08:00→12:55)
--- NOTE | 2017-11-14 08:24 | DIS ---
ADMISSION DIAGNOSES: Constipation and impaction. DISCHARGE DIAGNOSES: 1. Constipation, resolved. 2. Urinary retention. 3. Morbid obesity. 4. History of congestive heart failure. 5. Chronic constipation with recent admission in the past requiring surgical disimpaction. 6. Depression and anxiety. 7. Hypothyroidism. CONSULTATIONS: None. PROCEDURES: Fleet's enema and soapsuds enema. HOSPITAL COURSE: This is a 77-year-old female, morbidly obese patient with a history of constipation which did require surgical intervention in 05/2017 for stool impaction, who presented to the emergen cy department with worsening constipation. Dr. Castillo saw the patient on the last admission and recomm ended that following discharge that she stay on her MiraLax every day. The patient was not able to c jelani to do that and she has developed constipation again at this point. She failed outpatient the rapy with MiraLax and magnesium citrate, presented to the emergency department and had attempted to m anually disimpact her. She was sent home on laxatives and failed again and represented to the emerge ncy department and admitted at this time. She was continued on MiraLax and magnesium citrate. She d id have good results with a good bowel movement. She did have an episode of retained urine. A Carroll catheter was placed and is now attempting to a urinary trial once the catheter is removed. The ky ent is anxious to get home. DISCHARGE PHYSICAL EXAMINATION: VITAL SIGNS: Temperature 97.5, pulse of 77, respirations 20, blood pressure 132/70, pulse oximetry i s 95% on room air. GENERAL: She is awake and alert, no acute distress. Mucosa is moist. NECK: Supple. HEART: Regular rate and rhythm. LUNGS: Clear. ABDOMEN: Morbidly obese, soft, nontender, nondistended. EXTREMITIES: No edema. DISCHARGE LABS: Reviewed. Sodium 136, potassium 3.6, chloride 102, CO2 of 27, BUN and creatinine 10 and 0.66, serum glucose of 83, calcium 9.3. TSH was 3.7. DISCHARGE MEDICATIONS: 1. Tylenol p.r.n. 2. Valium 2.5 mg p.r.n. anxiety. 3. Synthroid 25 mcg daily. 4. Losartan 25 mg daily. 5. Reglan 10 mg p.r.n. nausea and vomiting. 6. Protonix 40 mg daily. 7. MiraLax 17 grams daily. 8. Requip 0.5 mg at bedtime. 9. Senokot daily. FOLLOWUP INSTRUCTIONS: Patient to follow up in my office in 1-2 weeks. Follow up with Dr. Castillo.
[2017-11-14 12:50] VITALS: BP 115/68; TEMP 98
== END 2017-11-14 14:39 | disposition home or self-care (01) ==
LOC: ERS 14:31 → T4-B 18:05
PROVIDERS: ADMIT Family Medicine; ATTEND Family Medicine
DX: K59.09 Other constipation (principal); R33.9 Retention of urine, unspecified; E66.01 Morbid (severe) obesity due to excess calories; F32.9 Major depressive disorder, single episode, unspecified; F41.9 Anxiety disorder, unspecified; E03.9 Hypothyroidism, unspecified; I11.0 Hypertensive heart disease with heart failure; I50.9 Heart failure, unspecified; E11.9 Type 2 diabetes mellitus without complications; K21.9 Gastro-esophageal reflux disease without esophagitis; Z88.1 Allergy status to other antibiotic agents; Z88.5 Allergy status to narcotic agent; Z88.8 Allergy status to other drugs, medicaments and biological substances; Z79.899 Other long term (current) drug therapy; Z68.42 Body mass index [BMI] 45.0-49.9, adult
CPT/HCPCS: 51701; 51702; 74018; 80048 ×3; 81003; 82274; 84443; 85025; 85610; 85730; 87045; 87046; 87324; 87449 ×2; 87493; 87899 ×2; 96361; 96374; 97139 ×2; 99285; G0378; 36415; 87186; A4353; J2270; Q0162

== ENCOUNTER 2019-03-01 09:58 | Observation (INO) | payer MEDICARE, MEDICAID ==
[2019-03-01] MEDS ORDERED: Ondansetron PF 4 MG/2 ML Vial ONE (10:15)
--- NOTE | 2019-03-01 10:16 | RAD ---
XR Chest 1 View Portable HISTORY: Chest pain COMPARISON: 05/29/2017 FINDINGS: The heart size is at upper limits of normal. The aorta is tortuous. The lungs are well expa nded without focal areas of consolidation, pneumothorax or pleural effusions. IMPRESSION: No radiographic evidence of acute cardiopulmonary process.
[2019-03-01 10:18] LABS: #Eosinphils 0.1 thou/uL (0.0-0.7); #Lymphocytes 1.5 thou/uL (1.20-3.40); #Monocytes 0.7 thou/uL (0.11-0.59); #Neutrophils 5.1 thou/uL (1.40-6.50); %Basophils 0.2 % (0.0-1.0); %Eosinophils 0.7 % (0.0-10.0); %Lymphocytes 20.1 % (21.0-51.0); %Monocytes 9.3 % (0.0-10.0); %Neutrophils 69.7 % (42.0-75.0); Hemoglobin 12.4 g/dL (12.0-16.0); Mean Corpuscular HGB CONC 34.6 g/dL (32.0-36.0); Mean Corpuscular Hemoglobin 34.6 pg (27.0-31.0); Mean Corpuscular Volume 99.9 fL (78.0-98.0); Mean Platelet Volume 7.2 fL (7.4-10.4); Platelet Count 230 thou/uL (130-400); RBC Distribution Width 12.3 % (11.5-14.5); Red Blood Cell (RBC) Count 3.58 mill/uL (4.20-5.40); White Blood Cell (WBC) Count 7.4 thou/uL (4.8-10.8)
[2019-03-01 10:40] LABS: ALT (SGPT) 17 U/L (8-55); AST (SGOT) 136 U/L (5-34); Albumin 3.7 g/dL (3.4-4.8); Alkaline Phosphatase 112 U/L (40-150); Anion Gap 11 mmol/L (10-20); BUN (Urea Nitrogen) 12 mg/dL (9.8-20.1); Bilirubin, Total 0.6 mg/dL (0.2-1.2); Calc. Creatinine Clearance 0 mL/min (70-130); Calcium 10.1 mg/dL (7.8-10.44); Carbon Dioxide 27 mmol/L (23-31); Chloride 102 mmol/L (98-107); Estimated GFR-MDRD 73; Globulin 3.8 g/dL (2.4-3.5); Glucose 114 mg/dL (83-110); Lipase 19 U/L (8-78); Potassium 4.1 mmol/L (3.5-5.1); Protein, Total 7.5 g/dL (6.0-8.3); Sodium 136 mmol/L (136-145)
--- NOTE | 2019-03-01 10:56 | ULT ---
GALLBLADDER ULTRASOUND: HISTORY: Right upper quadrant abdominal pain FINDINGS: The liver demonstrates increased echogenicity consistent with fatty infiltration. There is a 6.7 x 4. 8 x 9 cm hypoechoic solid-appearing mass in the left lobe of the liver. The patient is post cholecystectomy. The common duct measures 5 mm in diameter. The right kidney is normal. The pancreas is not well visualized due to overlying bowel gas. No free f luid is seen in the Lozano's pouch. IMPRESSION: Fatty liver with left lobe mass measuring 9 x 6.7 x 4.8 cm. Possibility of malignancy/met astatic disease should be considered. Further evaluation with CT scan of the abdomen and pelvis, with and without contrast using the liver mass protocol is recommended.
[2019-03-01 11:24] LABS: Bilirubin Negative (Negative); Blood, Urine Negative (Negative); Clarity Clear (Clear); Glucose, Urine (Dipstick) Normal (Negative); Leukocyte Negative Leu/uL (Negative); Nitrite Negative (Negative); Protein, Urine (Dipstick) Negative (Neg-Trace); Urobilinogen Normal mg/dL (Less than 2)
--- NOTE | 2019-03-01 13:19 | CT ---
CT ABDOMEN AND PELVIS WITH AND WITHOUT CONTRAST: INDICATION: Right abdominal pain. FINDINGS: Precontrast imaging reveals evidence of prior cholecystectomy. No urolithiasis. There is a hypodens e mass, which enhances irregularly with postcontrast imaging. There are additional scattered hepatic hypodensities, some of which demonstrate the appearance of cysts and others are too small to further characterize. No evidence of adrenal mass. The spleen and pancreas are unremarkable. There is cristin dence of prior herniorrhaphy with residual central abdominal wall hernia present. No abdominal aorti c dissection or aneurysm identified. Imaged lung bases reveal mild volume loss. IMPRESSION: Abnormal, heterogeneous enhancing mass of the left hepatic lobe approximately 8.7 cm, suspicious for carcinoma. Recommend Gastroenterology consultation. POS: [facility]
[2019-03-01 13:47] LABS: Troponin I Less than 0.010 ng/mL (< 0.028)
[2019-03-01] MEDS ORDERED: Ondansetron PF 4 MG/2 ML Vial IVP PRN (13:49)
[2019-03-01] MEDS ORDERED: Ondansetron ODT 4 MG TAB PO PRN (13:49)
[2019-03-01] MEDS ORDERED: HYDROcodone/Acetaminophen 5/325 mg Tablet PO PRN (14:52)
[2019-03-01 16:02] VITALS: BMI 56.0
[2019-03-01 16:52] LABS: Troponin I Less than 0.010 ng/mL (< 0.028)
[2019-03-01] MEDS: HYDROcodone/Acetaminophen 5/325 mg Tablet PO PRN (21:02)
[2019-03-01] MEDS ORDERED: Morphine 4 MG/ML VIAL SLOW IVP PRN ×2 (22:00→22:01)
[2019-03-01] MEDS ORDERED: Zolpidem Tartrate 5 MG TAB PO PRN (22:07)
--- NOTE | 2019-03-02 02:25 | HP ---
PRIMARY CARE PHYSICIAN: Isaias Foster DO CHIEF COMPLAINT: Right upper quadrant pain. HISTORY OF PRESENT ILLNESS: This is a 78-year-old [place] female patient of Dr. Foster, who started experiencing what she called a pulled muscle type sensation in her right upper quadrant under the rib cage in the anterior axillary line. This started yesterday afternoon and got worse in the evening, that is aside. She says she usually sleeps on and it just kept getting worse, so today when it did not go away, she came into the emergency room. In her visit in the ER, blood was drawn. They looked at her heart for possibility of a problem and found a right bundle branch block, but then on a CT scan of her abdomen, found a mass in her liver, so she is being admitted for further workup of this mass. She does state that the pain gets worse with a deep breath. She has noted no changes in nausea or vomiting. She has noted no changes in her bowel habits. No fever. No jaundice. She last saw Dr. Foster, she thought it was last month. It looks like she had labs done in November. She was told everything was looking fine. PAST MEDICAL HISTORY: Positive for osteoporosis, osteoarthritis, and acquired hypothyroidism. She has a history of low blood sugar, hypertension, and GERD. She has IBS with constipation and restless legs syndrome. MEDICATIONS: 1. Synthroid 25 mcg a day. 2. Losartan 25 mg a day. 3. Omeprazole 40 mg a day. 4. Linzess 145 mg, takes one tablet every other day. 5. She has diazepam 5 mg, takes one p.o. essentially no more than one week. 6. She also has Zofran 4 mg p.r.n. nausea and vomiting. 7. She takes ropinirole 2 mg nightly for restless legs. PAST SURGICAL HISTORY: She has had an umbilical hernia repair x3, and the last one was done in 2012 and after that she had a complication of a perforated intestine and perforated viscus, which then became septic and she spent five months here in [facility]. She had a total vaginal hysterectomy for hemorrhaging in 1994, she had a cholecystectomy done in 1989, and she had her bilateral tubal ligation done in 1969. Her ovaries are remaining intact. ALLERGIES: CODEINE AND LASIX. FAMILY HISTORY: Her father had what she was told was a stomach cancer. Her mother of old age. She has three brothers, one who of prostate cancer, one who is dying of colon cancer. Third brother does not have any diseases. She has five sisters. One sister had an unknown liver disease that killed her. Another sister of Alzheimer disease. The third sister of a heart attack. The fourth sister also has Alzheimer disease and the fifth sister of an unknown cause. She had a daughter who at age 49 from cirrhosis of the liver. SOCIAL HISTORY: She is a . Her at 49. They have several children, all essentially living local. She has no toxic habits. No tobacco or alcohol use. 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 Her last colonoscopy was in May of 2017 when she was in the hospital for a blockage and she had a large built-up stool and had to be removed. REVIEW OF SYSTEMS: She denies any fevers, chills, headaches, visual changes, trouble chewing or swallowing. She has on and off nausea, but nothing recent. She denies any chest pain or cough. No hemoptysis. No hematemesis. She denies any changes in bowel or bladder habits. She denies any dysuria or hematuria. She denies any paresis or paresthesias. She denies any suicidal or homicidal ideation. She denies any auditory or visual hallucinations. PHYSICAL EXAMINATION: VITAL SIGNS: She is afebrile at 98.2, pulse 67, BP is 125/59, respiration 19, and saturating 98% on room air. GENERAL: She is a morbidly obese female, lying comfortably in bed. Her BMI is 56. HEENT: Essentially unremarkable. She has anicteric sclerae. Pupils are equal, round, and reactive to light and accommodation. Extraocular movements are intact. Mucous membranes are moist. NECK: Obese and supple. No lymphadenopathy. No bruits. No thyromegaly. LUNGS: Clear to auscultation bilaterally. No rales, rhonchi, or wheezes. HEART: S1 and S2 with no rubs, murmurs, or gallops. ABDOMEN: Obese, soft, and nontender. Difficult to ascertain whether we have a palpable liver edge below the right inferior costal margin, but her area of tenderness is in the right anterior axillary line below the costal margin. There is no radiation with this pain. GENITOURINARY: Deferred. EXTREMITIES: Does show good palpable pulses in all four extremities. SKIN: Warm and pink. NEUROLOGIC: Grossly intact. Cranial nerves 2 through 12 are equal and symmetrical. She is alert and oriented x4. DTRs are 2+ and equal in bilateral upper and lower extremities. LABORATORY DATA: Her lab shows a white count of 7.4 with an H and H of 12.4 and 35.8 respectively with platelet count of 230,000, neutrophils 69.7, lymphocytes at 20.1%. The chemistry; sodium 136, potassium 4.1, chloride 102, bicarb 27, BUN 12, and creatinine 0.77. Her GFR is normal at 73, glucose in the ER initially was 114 up in the floor, it was later 103. Lactic acid is at 1.1. Calcium is at 10.1. Her total bilirubin is normal at 0.6. AST is slightly elevated at 136. Her ALT is normal at 17, alkaline phosphatase is 12. Troponin has been undetectable x3. Her albumin level is 3.7 and normal. Lipase is normal at 19. Her urine is unremarkable. Her chest x-ray done in the ER shows a tortuous aorta, otherwise no findings of any abnormalities. The lungs are clear and fully expanded. An abdominal ultrasound was done which showed a fatty liver with a left lobe mass measuring 9 cm x 6.7 cm x 4.[address] was then done with and without contrast, and this abdominal CT once again demonstrated left hepatic lobe mass. No evidence of any adrenal masses. The spleen and pancreas were unremarkable. There is evidence of the prior umbilical herniorrhaphies with residual central minimal abdominal wall hernia present. No abdominal aortic pathology is seen. ASSESSMENT: Left hepatic lobe mass, relatively recent finding. Will be admitting under Dr. Foster. I have already spoken with Dr. Castañeda who is on GI the night. He will see her in the morning. We will recheck liver functions in addition to getting an AFP (alpha fetoprotein) as well as getting a CEA level and will go from there. Job ID: [id number]
[2019-03-02] MEDS: Ondansetron ODT 4 MG TAB PO PRN ×2 (04:14→19:07)
[2019-03-02] MEDS: HYDROcodone/Acetaminophen 5/325 mg Tablet PO PRN (04:17)
[2019-03-02] MEDS: Levothyroxine Sodium 25 MCG TAB PO SCH (04:17)
[2019-03-02 05:49] LABS: ALT (SGPT) 15 U/L (8-55); AST (SGOT) 115 U/L (5-34); Albumin 3.2 g/dL (3.4-4.8); Alkaline Phosphatase 96 U/L (40-150); Bilirubin, Direct 0.3 mg/dL (0.1-0.3); Bilirubin, Total 0.6 mg/dL (0.2-1.2); Protein, Total 6.3 g/dL (6.0-8.3)
[2019-03-02] MEDS: Losartan 25 MG TAB PO SCH (08:10)
[2019-03-02] MEDS ORDERED: LINZESS 145 MCG PO SCH (09:00)
--- NOTE | 2019-03-02 09:54 | PRG ---
DATE OF SERVICE: 03/02/2019 SUBJECTIVE: The patient continues to have right upper quadrant abdominal pain, worse with movement. She has had bowel movements. Last BM was 2 days ago. States that she has not had further constipation since her last episode year and half ago. She was seen by Dr. Grayson at that point and had a colonoscopy with a large impaction and possible bezoar at that time. No fevers or chills. No nausea or vomiting. She denies chest pain or shortness of breath. OBJECTIVE: VITAL SIGNS: Temperature 97.6, pulse 64, respirations 18, blood pressure 121/55, pulse ox is 97% on room air. GENERAL: She is awake and alert. No acute distress. She is uncomfortable with movement. She is morbidly obese. Mucosa is moist. NECK: Supple. HEART: Regular rate and rhythm. LUNGS: Clear anteriorly. ABDOMEN: Morbidly obese, soft. Positive right upper quadrant tenderness. No rebound or guarding. No masses that were able to be felt. EXTREMITIES: With no edema. LABORATORY DATA: Reviewed from yesterday. Accu-Cheks of 121, 126, 103. AST elevated at 115, ALT at 15. Serum albumin is 3.2, CEA is 2.49. AFP is pending at this time. Troponin I was negative, less than 0.01. CT abdomen and ultrasound and chest x-ray were reviewed. ASSESSMENT AND PLAN: This is a 78-year-old female patient with morbid obesity, noncompliance, and was admitted with a history of abdominal pain for the past 2 days, found to have an enhancing mass in the left hepatic lobe about 8.7 cm. 1. Hepatic mass. Await GI evaluation to decide upon biopsy at this time. Await tumor marker results as well. 2. History of chronic constipation and irritable bowel. She takes Linzess 145 mcg daily. 3. Hypertension is stable. Job ID: [id number]
[2019-03-02] MEDS: Docusate 100 MG CAP PO SCH ×2 (10:59→21:34)
[2019-03-02 14:49] LABS: Reference Lab Name LABCORP
[2019-03-02 14:50] LABS: Ref Lab Test Ordered ECHINOCOCCUS AB
[2019-03-02] MEDS: Diazepam 5 MG TAB PO PRN ×2 (16:50→19:21)
[2019-03-02] MEDS ORDERED: rOPINIRole HCl 2 MG TAB PO SCH (21:00)
[2019-03-02] MEDS: Polyethylene Glycol 3350 17 GM Packet PO SCH (21:34)
--- NOTE | 2019-03-03 02:06 | CON ---
DATE OF CONSULTATION: 03/02/2019 REASON FOR CONSULTATION: Liver mass. CONSULTING PROVIDER: Julio Land MD HISTORY OF PRESENT ILLNESS: The patient is a 78-year-old female with past medical history of osteoarthritis, osteoporosis, hypothyroidism, hypertension, GERD, restless legs syndrome, and IBS, presenting with complaints of right upper quadrant abdominal pain. She states that she was in her usual state of health until approximately 2 days ago when she had the acute onset of right upper quadrant abdominal pain that she described as a stabbing type pain, was constant, nonradiating, and would reach a severity of 9/10. The pain was worse with sitting down and deep inspiration, better with actually lying down flat and passing flatus/eructation. With worsening of the pain over the next 24 to 48 hours, it prompted her to seek healthcare assistance within the [facility] ER, and while in the ER, she had a CT scan for evaluation of this abdominal pain and noted to have a large left hepatic lobe mass concerning for possible malignancy. She was subsequently admitted to the hospital for further evaluation of this mass. At the current time, she does continue to have the right upper quadrant abdominal pain that has improved somewhat with the administration of narcotic medications, but she is worried that would constipate her. She does have a history of baseline constipation as an outpatient and has been taking Linzess every other day as part of treatment for this condition. She does also continue to have some mild nausea, but has not had any episodes of vomiting during this admission, nor any at home. Currently, she denies any fevers, chills, hematemesis, melena, hematochezia, dysphagia, odynophagia, weight loss, lower extremity edema, encephalopathy, or increased abdominal distention consistent with ascites. REVIEW OF SYSTEMS: A 10-category review of systems was obtained with all responses negative except for the pertinent positives as listed in HPI. PAST MEDICAL HISTORY: As per HPI. PAST SURGICAL HISTORY: Umbilical hernia repair x3 with complications including a perforated small bowel, total vaginal hysterectomy, cholecystectomy, and bilateral tubal ligation. FAMILY HISTORY: She states that her sister was diagnosed with liver problems of unknown type. Her daughter was diagnosed with cirrhosis secondary to nonalcoholic steatohepatitis. She also adds that her father and her brother were diagnosed with colon cancer, with her father being diagnosed in his 80s. SOCIAL HISTORY: She denies any tobacco, alcohol, or illicit drug use. OUTPATIENT MEDICATIONS: Reviewed. ALLERGIES: CODEINE AND LASIX. PHYSICAL EXAMINATION: VITAL SIGNS: Temperature 98.4, pulse 61, blood pressure 133/61, respiratory rate 16, saturating 94% on room air. GENERAL: The patient was lying in bed, in no acute distress. Alert and oriented x4. HEENT: Normocephalic, atraumatic. NECK: Supple. No JVD or scleral icterus noted. CARDIOVASCULAR: Regular rate and rhythm with no discernible murmurs, gallops, or rubs. RESPIRATORY: Clear to auscultation bilaterally with no discernible wheezes or rales. ABDOMEN: Normoactive bowel sounds. Soft, nondistended. Tenderness to palpation in the right upper quadrant and right flank. Otherwise, normal. EXTREMITIES: No cyanosis, clubbing, or edema. LABORATORY DATA: CBC with a white blood cell count of 7.4, hemoglobin 12.4, hematocrit 35.8, platelets 230. Chemistry with a sodium of 136, potassium 4.1, chloride 102, CO2 27. BUN 12, creatinine 0.77, glucose 114. AST 136, ALT 17, alkaline phosphatase 112, total bilirubin 0.6, albumin 3.7, CEA 2.49, lipase 19, AFP 23,783. IMAGING DATA: CT of the abdomen and pelvis, liver mass protocol was obtained on March 01, 2019, which showed a hypodense mass, which enhances irregularly along with scattered hepatic hypodensities demonstrating the appearance of cyst, but could be necrosis. Per discussion with the radiologist, the patient's mass did enhance on the arterial phase imaging and did also washout on the venous phase imaging concerning for the presence of hepatocellular carcinoma. Based on the CT scan, the mass measured approximately 8.7 cm in size. ASSESSMENT AND PLAN: The patient is a 78-year-old female with past medical history of osteoarthritis, osteoporosis, hypothyroidism, hypertension, GERD, restless legs syndrome, and irritable bowel syndrome, presenting with a liver mass consistent with hepatocellular carcinoma. Liver mass/abdominal pain. The patient initially presented with increased right upper quadrant/right flank abdominal pain that has been present for the last 2 days, characterized as a stabbing type pain that was constant and reaching a severity of 9/10. Given the fact that the pain was alleviated somewhat with passing flatus, eructation, and having a bowel movement, it could be reminiscent of her irritable bowel syndrome and constipation associated with that, for which she takes Linzess as an outpatient. Her last bowel movement was approximately 2 days ago and was solid in consistency with no further episodes of defecation since then. Given the nature of her abdominal pain and the location, I think constipation is more likely, especially since there were very few nerve endings within the liver that might generate pain secondary to this liver mass. However, as more of an incidental finding, as part of the workup for her abdominal pain, there was an 8.7 cm left hepatic mass noted on admission with arterial enhancement and venous washout consistent with hepatocellular carcinoma per LI-RADS criteria. Given the fact that her alpha fetoprotein is significantly elevated at this time, the likelihood of hepatocellular carcinoma is high. I would not recommend any biopsy at this time given the possibility of seeding the tract and creating metastatic disease for this particular patient. However, she may benefit from surgical resection of this tumor given its localized nature. Upon review of the patient's chart and labs; however, she does not exhibit any evidence of cirrhosis that would predispose her towards the formation of hepatocellular carcinoma, but instead, this HCC may be more practice representative of a de marina growth. Given her extensive family history of liver disease and cirrhosis, a hereditary or genetic predisposition to HCC is also within the differential and would require further workup. RECOMMENDATIONS: 1. We will perform a full liver workup during this hospitalization. We will confer any other underlying causes of chronic liver disease that could potentially progress towards hepatocellular carcinoma. 2. Pain control per primary team. 3. We would restart the patient's Linzess daily in addition to MiraLAX in an attempt to facilitate having a bowel movement, which may alleviate her pain. 4. Once the pain is controlled, the patient can be discharged home with followup in the [facility] in [place] for further treatment options related to hepatocellular carcinoma. We will facilitate this appointment through my office as an outpatient on Tuesday after the holiday . We will continue to follow. Please call with any questions. Job ID: [id number]
[2019-03-03] MEDS: Levothyroxine Sodium 25 MCG TAB PO SCH (06:00)
[2019-03-03] MEDS: Ondansetron ODT 4 MG TAB PO PRN (06:50)
[2019-03-03 06:54] LABS: Ferritin 126.36 ng/mL (10-291)
[2019-03-03 07:07] LABS: HBSAB Concentration 0.74 mIU/mL; HBSAg Index 0.23 S/CO (0-0.99); Hep B Core Total Ab Non-Reactive (NonReactive); Hep B Core Total Index 0.09 S/CO (0-0.79); Hep B Surf AB Non-Reactive (NonReactive); Hep B Surf Ag Non-Reactive S/CO (NonReactive); Hep C IgG Ab Non-Reactive (NonReactive); Hep C Index 0.11 S/CO (0-0.79)
[2019-03-03] MEDS: Losartan 25 MG TAB PO SCH (10:11)
[2019-03-03] MEDS: Docusate 100 MG CAP PO SCH ×2 (10:11)
[2019-03-03] MEDS: Polyethylene Glycol 3350 17 GM Packet PO SCH (10:12)
[2019-03-03 11:54] VITALS: BP 121/56; TEMP 98.6
[2019-03-03] MEDS: HYDROcodone/Acetaminophen 5/325 mg Tablet PO PRN (12:58)
--- NOTE | 2019-03-04 05:37 | DIS ---
DATE OF ADMISSION: 03/01/2019 DATE OF DISCHARGE: 03/03/2019 ADMISSION DIAGNOSES: Right upper quadrant abdominal pain, abnormal CAT scan. DISCHARGE DIAGNOSIS: Liver mass, suspicious for hepatocellular carcinoma. CONSULTATIONS: Dr. Castañeda for Gastroenterology. PROCEDURES: Abdominal ultrasound, CT abdomen, and chest x-ray. HOSPITAL COURSE: This is a 78-year-old female patient with morbid obesity, hypertension, hypothyroidism, chronic constipation with a recent admission last week for a fecal impaction requiring a colonoscopy, re-sent to the Emergency Department with sudden onset of right upper quadrant abdominal pain. In the Emergency Department, a workup was done, and she was found to have a hepatic mass of 8.7 cm, suspicious for carcinoma. Further workup was done, and she had an alpha-fetoprotein lab which was extremely high at 23,783. Her pain was managed well both with oral narcotics as well as few doses of IV morphine. Dr. Castañeda saw the patient in evaluation. He felt like if we could control her pain and the constipation, she could be discharged home with close followup with the [facility] for further treatment options. It was felt that a biopsy was not recommended at this time due to the possibility of seeding of the cancer cells during the process of the biopsy. Due to apparent localized nature of the mass and no signs of liver failure, cirrhosis is possible that this is a recent development, does recommended to act quickly to get [facility] and treatment. Her constipation was managed with her Linzess as well as stool softeners and laxatives p.r.n. Her pain was controlled with Armstrong, and she was stable for discharge after Dr. Castañeda is able to discuss further with the family. DISCHARGE PHYSICAL EXAMINATION: VITAL SIGNS: Temperature 98.9, pulse is 63, respirations 20, blood pressure 124/60, and pulse ox is 96% on room air. GENERAL: She is awake and alert. No acute distress. Speech is clear. No jaundice. NECK: Supple. HEART: Regular rate and rhythm. LUNGS: Clear. ABDOMEN: Morbid obesity. Positive for right upper quadrant tenderness. No rebound or guarding. EXTREMITIES: With no edema. DISCHARGE LABORATORY DATA: Are reviewed again with the AFP of almost 24,000. CEA was normal at 2.49. Liver function with AST of 115 and an ALT of 15. DISCHARGE MEDICATIONS: Include, 1. Hydrocodone 5/325 t.i.d. p.r.n. severe pain. 2. Levothyroxine 25 mcg daily. 3. Losartan 25 mg daily. 4. Zofran p.r.n. nausea and vomiting. 5. Linzess 145 mcg daily. 6. Colace 100 mg b.i.d. 7. MiraLAX daily p.r.n. no bowel movement. 8. Requip 2 mg daily at bedtime. FOLLOWUP INSTRUCTIONS: The patient to follow up at the [facility] as arranged by Dr. Castañeda and then follow up with myself and Dr. Castañeda following that. Job ID: [id number]
[2019-03-05 16:23] LABS: ANA Symphony (Qualitative) Negative (Negative); ANA Symphony (Quantitative) 0.2 Ratio (< 0.7 Negative); EliA Vaculitis New Method **** NEW METHOD ****; Mitochondrial Ab 1.4 U/mL (<4 Negative); dsDNA IgG Antibody 9.3 IU/mL (<10 Negative)
== END 2019-03-03 14:07 | disposition home or self-care (01) ==
LOC: ERS 09:58 → 2SW 11:34
PROVIDERS: ADMIT Family Medicine; ATTEND Family Medicine
DX: R16.0 Hepatomegaly, not elsewhere classified (principal); K76.0 Fatty (change of) liver, not elsewhere classified; R77.2 Abnormality of alphafetoprotein; M81.0 Age-related osteoporosis without current pathological fracture; M19.90 Unspecified osteoarthritis, unspecified site; I10 Essential (primary) hypertension; K21.9 Gastro-esophageal reflux disease without esophagitis; G25.81 Restless legs syndrome; K58.1 Irritable bowel syndrome with constipation; E03.9 Hypothyroidism, unspecified; E66.01 Morbid (severe) obesity due to excess calories; Z68.43 Body mass index [BMI] 50.0-59.9, adult; Z79.899 Other long term (current) drug therapy; Z88.5 Allergy status to narcotic agent; Z88.8 Allergy status to other drugs, medicaments and biological substances; Z91.040 Latex allergy status
CPT/HCPCS: 71045; 72193; 74170; 76705; 80053; 80076; 81003; 82103; 82105; 82378; 82390; 82728; 82784 ×3; 82962 ×3; 83516; 83540; 83550; 83605; 83690; 84484 ×2; 85025; 86038; 86225; 86704; 86706; 86803; 87040; 87077; 87086; 87149 ×2; 87340; 93005; 94760; 96361; 96374; 96375; 96376; 99285; G0378 ×4; 36415; 36416; J2270; J2405; Q0162

== ENCOUNTER 2019-06-16 11:16 | Inpatient (IN) | payer MEDICARE, MEDICAID ==
[~2019-06-16 11:16] MED LIST changes: -ISOVUE-370 76%-LOCM 1 ML ONE; +Iopamidol-370 76% 500 ML 1 ML ONE
[2019-06-16] MEDS ORDERED: Morphine 4 MG/ML VIAL ONE (12:09)
[2019-06-16] MEDS ORDERED: Ondansetron PF 4 MG/2 ML Vial ONE (12:09)
[2019-06-16 12:47] LABS: ALT (SGPT) 13 U/L (8-55); AST (SGOT) 55 U/L (5-34); Albumin 3.5 g/dL (3.4-4.8); Alkaline Phosphatase 90 U/L (40-110); Anion Gap 15 mmol/L (10-20); BUN (Urea Nitrogen) 13 mg/dL (9.8-20.1); Bilirubin, Total 1.3 mg/dL (0.2-1.2); Calc. Creatinine Clearance 0 mL/min (70-130); Calcium 9.7 mg/dL (7.8-10.44); Carbon Dioxide 19 mmol/L (23-31); Chloride 106 mmol/L (98-107); Estimated GFR-MDRD 70; Globulin 3.5 g/dL (2.4-3.5); Glucose 116 mg/dL (83-110); Potassium 3.7 mmol/L (3.5-5.1); Sodium 136 mmol/L (136-145)
[2019-06-16 13:15] LABS: #Lymphocytes 0.6 thou/uL (1.20-3.40); #Monocytes 0.6 thou/uL (0.11-0.59); #Neutrophils 3.1 thou/uL (1.40-6.50); %Basophils 0.2 % (0.0-1.0); %Eosinophils 0.7 % (0.0-10.0); %Lymphocytes 13.4 % (21.0-51.0); %Monocytes 14.5 % (0.0-10.0); %Neutrophils 71.1 % (42.0-75.0); Hemoglobin 6.7 g/dL (12.0-16.0); INR-International Normal Ratio 1.7; Mean Corpuscular HGB CONC 33.1 g/dL (32.0-36.0); Mean Corpuscular Hemoglobin 34.5 pg (27.0-31.0); Mean Platelet Volume 7.1 fL (7.4-10.4); PTT 47.9 SEC (22.9-36.1); Platelet Count 83 thou/uL (130-400); Prothrombin Time 20.1 SEC (12.0-14.7); RBC Distribution Width 11.7 % (11.5-14.5); Red Blood Cell (RBC) Count 1.94 mill/uL (4.20-5.40); White Blood Cell (WBC) Count 4.3 thou/uL (4.8-10.8)
[2019-06-16 13:39] LABS: MDiff Complete? YES; Macrocytosis SLIGHT = 6-15 cells (100X) (0-5/hpf); Platelet Morphology Comment Appears Decreased; Polychromasia SLIGHT = 2-3 cells (100X) (0-2/hpf)
--- NOTE | 2019-06-16 14:04 | CT ---
Exam: Abdomen and pelvic CT scan with IV contrast: HISTORY: Abdominal pain COMPARISON: 03/01/2019 CT scan of the abdomen. FINDINGS: Prominent linear parenchymal and pleural-based parenchymal changes in both lung bases. Approximately 8.4 cm diameter left lobe of liver mass showing little change from the prior study. Several stable liver cysts. Status post cholecystectomy. Borderline splenomegaly at 14 cm. Hiatal hernia. [address] able appearing lymph nodes in the right paraesophageal region. Stable peripancreatic lymph node. Stable 3 cm diameter left renal mass is not a simple cyst. Status post prior hernia repair changes wi th some eventration. Small fat-containing left lateral abdominal wall hernia. In the anterior scan and subcutaneous tissues of the panniculus region there is some extensive fat stranding and skin thic kening which appears to be progressive from the prior study raising concern for cellulitis or superficial panniculitis. No CT evidence for acute appendicitis. No renal calculus or acute obstru ction. No evidence for large or small bowel obstruction. Very severe vertical height loss of L1 vertebral body with marked retropulsion as well as vertical height loss of T12 and significant diffus e bone demineralization. IMPRESSION: Approximately 8.4 cm diameter left lobe of liver solid mass. 3 cm diameter left renal mass, not a simple cyst. Postop changes involving the anterior abdominal wall. Prominent skin thickening and subcutaneous fat stranding in the inferior abdominal wall below the lev el of the umbilicus possibly representing cellulitis or subcutaneous panniculitis worse from the prior study.
[2019-06-16] MEDS ORDERED: Pantoprazole 40 MG VIAL ONE (14:21)
--- NOTE | 2019-06-16 15:03 | RAD ---
Exam: Chest one view: HISTORY: Cough, abdominal pain COMPARISON: 02/19/2019 FINDINGS: Bilateral vascular congestion with some interstitial edema changes. Very poor inspiration. Minimal ca rdiomegaly. IMPRESSION: Bilateral vascular congestion with increased interstitial changes bilaterally possibly representing b ilateral pulmonary edema versus bilateral atypical pneumonia or pneumonitis. Minimal cardiomegaly. Poor inspiration. Correlate clinically.
[2019-06-16] MEDS ORDERED: Acetaminophen 325 MG TAB PO PRN ×2 (16:08→21:55)
[2019-06-16] MEDS ORDERED: Ondansetron PF 4 MG/2 ML Vial IVP PRN (16:08)
[2019-06-16] MEDS ORDERED: Furosemide 40 MG/4 ML VIAL ONE (16:12)
[2019-06-16] MEDS ORDERED: Morphine 4 MG/ML VIAL SLOW IVP PRN ×2 (16:12→21:55)
[2019-06-16 16:25] LABS: Bilirubin Negative (Negative); Blood, Urine Negative (Negative); Clarity Clear (Clear); Glucose, Urine (Dipstick) Normal (Negative); Leukocyte Negative Leu/uL (Negative); Nitrite Negative (Negative); Protein, Urine (Dipstick) 10 mg/dL (Neg-Trace)
[2019-06-16] MEDS ORDERED: Vancomycin HCl 1 GM in Premix Bag 1 BAG IVPB SCH ×2 (17:00→18:30)
[2019-06-16 17:41] LABS: Reticulocyte Count 1.8 % (0.5-1.5)
--- NOTE | 2019-06-16 18:00 | HP ---
PRIMARY CARE PHYSICIAN: Dr. Isaias Vidalse [place]. SURROGATE DECISION MAKER: The patient's daughter, Norma Alvarez. CODE STATUS: Full. CHIEF COMPLAINT: Left ymowy-tly-tbandh abdominal pain. HISTORY OF PRESENT ILLNESS: The patient is a 78-year-old female, who was diagnosed with liver cancer a few months ago during a hospitalization in this hospital in February 2019. She was referred to [facility], where she had procedure Y90 done a couple of days ago. The day after the procedure, she started having some pain in the left abdomen under her left breast, and she presented to the emergency room, where she was found to have hemoglobin down to 6.7 and is getting admitted for further management of the problem and evaluation. She denied any vomiting. She had some nausea. She denied any diarrhea. The pain is sharp in nature, rated at 10 on a scale from 1 to 10. She denied any shortness of breath. She received morphine in the emergency room, and her pain is down to 4. She had some temperature at home at 101.5. She denied any dysuria. She has some dry cough, which comes and goes for quite some time. She feels weak, especially since the last when she had her procedure done. We have some records from February 2019 admission, and her hemoglobin was 12. PAST MEDICAL HISTORY: Positive for: 1. Osteoporosis. 2. Acquired hypothyroidism. 3. Hypertension. 4. GERD. 5. IBS. 6. Constipation. 7. Restless legs syndrome. 8. Liver cancer. PAST SURGICAL HISTORY: 1. Umbilical hernia repair x3. 2. Perforated intestine. 3. Sepsis. 4. Vaginal hysterectomy. 5. Cholecystectomy. 6. Bilateral tubal ligation. ALLERGIES: 1. CODEINE. 2. LATEX. 3. NATURAL RUBBER. FAMILY HISTORY: Her father had stomach cancer. Her mother of old age. SOCIAL HISTORY: She is a . She does not drink alcohol. She does not use any illicit drugs. She does not smoke. MEDICATIONS: Please refer to the list, which is supposed to be supplied by the family. REVIEW OF SYSTEMS: All 14 systems were reviewed, and symptoms were negative except for those which are mentioned in HPI. PHYSICAL EXAMINATION: VITAL SIGNS: Her pulse is 78, respiratory rate is 19, O2 saturation is 98% on room air. HEENT: Head is atraumatic and normocephalic. Eyes are PERRLA. Sclerae are nonicteric. Conjunctivae are palish. Oral mucosa is slightly dry. NECK: Supple, obese. LUNGS: Clear. HEART: S1 and S2 are normal. No S3. No S4. ABDOMEN: Obese with old scars in the midline from previous surgeries. Left upper abdomen is painful with deeper palpation. Also, liver is slightly enlarged and tender to palpation. Bowel sounds are present. EXTREMITIES: 1+ peripheral edema around both ankles. Her pulses are slightly diminished on both feet. NEUROLOGIC: She is alert and oriented x4. There are no any motor deficits. LABORATORY DATA: Showed white count of 4.3, hemoglobin of 6.7, hematocrit 20.2, MCV 104.0, platelet count is 83,000, . PT 20.1, INR 1.7, APTT 47.9. Sodium of 136, potassium 3.7, chloride 106, CO2 of 19, BUN 13, creatinine 0.79, glucose 116. Lactic acid 0.5. Calcium 9.7. Total bilirubin 1.3, AST 55, ALT 39, alkaline phosphatase 90. Troponin I less than 0.010. Albumin 1.0. EKG personally reviewed by me showed left bundle-branch block, but that is old. She is in normal sinus rhythm. Chest x-ray personally reviewed by me showed increased interstitial markings with bilateral vascular congestion, minimal cardiomegaly. CT of the abdomen and pelvis, this was personally reviewed by me, showed: 1. Left lobe solid mass measuring 8.4 cm diameter. 2. 3 cm diameter left renal mass. 3. Postoperative changes involving anterior abdominal wall. 4. Prominent skin thickening and subcutaneous fat stranding in the inferior abdominal wall below the level of the umbilicus, possibly representing cellulitis or subcutaneous panniculitis, worse from the prior study. IMPRESSION: 1. Pancytopenia, most likely related to recent procedure and chemotherapy. 2. Fever and some positive finding for subcutaneous panniculitis. 3. Liver mass, recently diagnosed with liver cancer, status post Y90 procedure. 4. Hypothyroidism. 5. Hypertension. 6. Osteoporosis. 7. Osteoarthritis. 8. Irritable bowel syndrome. 9. Restless legs syndrome. PLAN: Admission to the medical floor. Condition is fair. Activity is bedrest and bathroom privileges with assistance. IV Hep-Lock. 40 mg of Lasix IV push x1. Transfusion of 2 units of packed red blood cells. Antibiotic coverage with cefepime and vancomycin. CBC and comp tomorrow morning. We will reconcile her home medications as soon as possible when the list is available. DVT prophylaxis with SCDs. Clear liquid diet. Job ID: [id number]
[2019-06-16 18:01] LABS: Iron 57 ug/dL (50-170); Iron Binding Capacity, Total 234 mcg/dL (265-497)
[2019-06-16 18:25] LABS: Ferritin 163.16 ng/mL (10-291)
[2019-06-16 19:25] VITALS: BMI 56.5
[2019-06-16] MEDS ORDERED: Cefepime 1 GM in Sodium Chloride 0.9% 100 ML IVPB SCH (21:00)
[2019-06-16] MEDS ORDERED: rOPINIRole HCl 2 MG TAB PO SCH (21:00)
[2019-06-16] MEDS ORDERED: Diazepam 5 MG TAB PO PRN (22:03)
[2019-06-17] MEDS: Ondansetron PF 4 MG/2 ML Vial IVP PRN ×2 (03:52→08:59)
[2019-06-17] MEDS ORDERED: Diazepam 5 MG TAB PO PRN (07:46)
[2019-06-17] MEDS ORDERED: HYDROcodone/Acetaminophen 5/325 mg Tablet PO PRN ×2 (07:46)
[2019-06-17 07:52] LABS: #Eosinphils 0.2 thou/uL (0.0-0.7); #Lymphocytes 0.8 thou/uL (1.20-3.40); #Neutrophils 5.4 thou/uL (1.40-6.50); %Basophils 0.2 % (0.0-1.0); %Eosinophils 2.7 % (0.0-10.0); %Lymphocytes 10.8 % (21.0-51.0); %Monocytes 13.4 % (0.0-10.0); %Neutrophils 72.8 % (42.0-75.0); Hemoglobin 12.6 g/dL (12.0-16.0); Mean Corpuscular HGB CONC 33.3 g/dL (32.0-36.0); Mean Corpuscular Hemoglobin 34.4 pg (27.0-31.0); Mean Platelet Volume 7.4 fL (7.4-10.4); Platelet Count 130 thou/uL (130-400); RBC Distribution Width 12.4 % (11.5-14.5); Red Blood Cell (RBC) Count 3.67 mill/uL (4.20-5.40); White Blood Cell (WBC) Count 7.4 thou/uL (4.8-10.8)
[2019-06-17] MEDS ORDERED: Non-Formulary Item 1 EACH (Linaclotide [Linzess] 1 CAP) PO SCH (08:00)
[2019-06-17 08:04] LABS: ALT (SGPT) 12 U/L (8-55); AST (SGOT) 47 U/L (5-34); Albumin 2.9 g/dL (3.4-4.8); Alkaline Phosphatase 79 U/L (40-110); Anion Gap 12 mmol/L (10-20); BUN (Urea Nitrogen) 10 mg/dL (9.8-20.1); Bilirubin, Total 0.9 mg/dL (0.2-1.2); Calc. Creatinine Clearance 114 mL/min (70-130); Calcium 8.9 mg/dL (7.8-10.44); Carbon Dioxide 22 mmol/L (23-31); Chloride 104 mmol/L (98-107); Estimated GFR-MDRD 74; Globulin 3.5 g/dL (2.4-3.5); Glucose 88 mg/dL (83-110); Potassium 3.6 mmol/L (3.5-5.1); Protein, Total 6.4 g/dL (6.0-8.3); Sodium 134 mmol/L (136-145)
[2019-06-17] MEDS ORDERED: Cefepime 1 GM in Sodium Chloride 0.9% 100 ML IVPB SCH (09:00)
[2019-06-17] MEDS ORDERED: Ondansetron ODT 4 MG TAB PO PRN (09:00)
[2019-06-17] MEDS ORDERED: Losartan 25 MG TAB PO SCH (09:00)
[2019-06-17 10:52] LABS: Hemoglobin 12.2 g/dL (12.0-16.0)
[2019-06-17 12:20] VITALS: BP 128/52; TEMP 98.5
--- NOTE | 2019-06-17 13:59 | CON ---
DATE OF CONSULTATION: REASON FOR CONSULT: Concern for worsening panniculitis. HISTORY OF PRESENT ILLNESS: Ms. Sahni is a 78-year-old woman who was recently diagnosed with liver cancer. She underwent radioembolization with yttrium 90 at [facility] earlier this week through a right femoral catheter. Since then, she has had chills and pain in the left abdomen under the ribcage. She was admitted to the hospital for these symptoms as well as a decreased white blood cell, red blood cell, and platelet count on her initial lab work. She did receive 1 unit of blood, but her hematocrit is back up to baseline today. The patient reports that at [facility], they valeriy a lot of blood for lab work, but she has not had any bleeding from the femoral site. She denies any pain in her pannus and has not had any erythema or skin breakdown in that area. PAST MEDICAL HISTORY: Liver cancer, morbid obesity, hypertension, GERD, osteoporosis, hypothyroidism. PAST SURGICAL HISTORY: Exploratory laparotomy for intestinal perforation and sepsis, repair of ventral hernia x2, hysterectomy, cholecystectomy, and tubal ligation. ALLERGIES: SHE REPORTS ALLERGIES TO CODEINE, LATEX, AND RUBBER. FAMILY HISTORY: She has family history of stomach cancer. SOCIAL HISTORY: The patient is here with her family. She does not smoke, drink, or use illicit drugs. She is . MEDICATIONS: Outpatient medications include: 1. Diazepam. 2. [place]. 3. Synthroid. 4. Linzess. 5. Cozaar. 6. Omeprazole. 7. Zofran. 8. Requip. Inpatient medications include: 1. [place]. 2. Diazepam. 3. Synthroid. 4. Cozaar. 5. P.r.n. morphine. 6. Linzess. 7. Zofran. 8. Protonix. 9. Requip. She received a couple doses of cefepime, but this has been discontinued and a couple doses of vancomycin. IMAGING DATA: CT images are reviewed. She has the obvious liver cancer and a lot of stranding in the subcutaneous tissues of a redundant pannus. LABORATORY DATA: White count this morning is normal at 7.4, hematocrit 38, platelets 130. Electrolytes are unremarkable. AST is mildly elevated at 47. PHYSICAL EXAMINATION: VITAL SIGNS: The patient has been afebrile since her admission, heart rate 61, respirations 22, 99% saturated on room air, blood pressure 115/51. GENERAL: Reveals morbidly obese elderly woman, in no acute distress. BMI is 56, and her obesity is primarily truncal. HEENT: Unremarkable. NECK: Supple without lymphadenopathy. HEART: Regular in its rate and rhythm without murmurs, rubs, or gallops. LUNGS: Clear to auscultation bilaterally. ABDOMEN: She does have a little bit of abdominal pain with deep inspiration. She is tender to palpation in the left upper quadrant, but otherwise nontender. She has an overhanging redundant pannus with a lot of edema in the tissues, but no cellulitis, no tenderness, no fluctuance. EXTREMITIES: Her right femoral access site is clean without evidence of hematoma or infection. Extremities are warm and well perfused without edema. NEUROLOGIC: No focal deficits. PSYCHIATRIC: Alert, oriented, and appropriate. ASSESSMENT AND PLAN: Chronic edema of the pannus with no evidence of infection. The patient has liver cancer, which was recently treated with radioembolization and her other symptoms are attributable to that. Her hematocrit is normal after transfusion of 1 unit and I suspect that her initial CBC had some lab error since this was more of a response and would have been expected with 1 unit of transfusion. From a Surgical standpoint, she can be discharged at any time and follow up with her team at [facility]. Job ID: [id number]
[2019-06-17] MEDS ORDERED: rOPINIRole HCl 2 MG TAB PO SCH (21:00)
[2019-06-18] MEDS ORDERED: Levothyroxine Sodium 25 MCG TAB PO SCH (06:00)
--- NOTE | 2019-06-18 10:39 | DIS ---
DATE OF ADMISSION: 06/16/2019 DATE OF DISCHARGE: 06/17/2019 DISCHARGE DIAGNOSES: Abdominal pain most likely related to her Y90 procedure which was just done 2 days prior to this hospitalization at [facility]. This was a procedure for her liver cancer embolization and radiation. HOSPITAL COURSE: The patient was found to have hemoglobin of 6.7 in the emergency room and she was given 1 unit of packed red blood cells. Her guaiac of her stool came back negative since she had some temperature of 101.5 at home. Prior to this hospitalization, she was placed on antibiotics and she underwent emergency room evaluation, which showed left lobe solid mass measuring 8.4 cm and 3 cm diameter left renal mass. Also, there was a prominent skin thickening and subcutaneous fat stranding in the inferior abdominal wall below the level of the umbilicus, which was possibly representing cellulitis or subcutaneous panniculitis and this was worse from the prior study. The patient was admitted to the medical floor. She was finalized with a unit of packed red blood cells and followup CBC the next morning showed a hemoglobin level at 12.6 with hematocrit of 38.0. This was followed with H and H which came back at 12.2 and 36.0 respectively. So at this point, it was obvious that her hemoglobin level obtained in the emergency room was a mistake and in the meantime the patient was seen by Dr. Cramer for evaluation of her abdominal pain and possible panniculitis. In her opinion, the pain was related to a current procedure done at [facility] and her panniculitis seen on CT was caused by chronic edema and lack of real infection requiring an antibiotic treatment. So antibiotics were discontinued and the pain of her abdomen improved. She was able to tolerate food and she is discharged home in good condition. DISHARGE PHYSICAL EXAMINATION: Her vitals, blood pressure is 128/52, pulse is 62, temperature is 98.5, respiratory rate is 22, and O2 saturation is 94% on room air. During this hospitalization, her temperature was a maximum of 99.1. She is discharged home with recommendation to stay on low-salt diet. ACTIVITIES: As tolerated. MEDICATIONS: At the time of discharge 1. Ropinirole 2 mg at bedtime. 2. Diazepam 2.5 mg q.24 hours p.r.n. as needed. 3. Losartan 50 mg once a day. 4. Levothyroxine 25 mcg once a day. 5. Hydrocodone 5/325 mg 1 to 2 tablets t.i.d. p.r.n. 6. Linzess one capsule p.o. daily. FOLLOWUP: The patient is going to see Dr. Foster for her followup in 1 week and she will keep her appointments with her oncologist in [place] at [facility]. Job ID: [id number]
--- NOTE | 2019-06-18 23:20 | PQF ---
DAE TORIBIO ZBIGNIEW A MD [id number] [id number] CLINICAL DOCUMENTATION CLARIFICATION FORM: POST DISCHARGE Addendum to original discharge summary date: ____ Late entry note date: __ DATE: 06/18/19 ATTN: Nick Ge Please exercise your independent, professional judgment in responding to the clarification form. Clinical indicators are provided on the bottom of this form for your review Please check appropriate box(s): Pancytopenia due to: [ ] Chemotherapy/antineoplastic drugs [ ] Other drug-induced (please specify if known): [x ] Other diagnosis lab error____ [ ] Unable to determine In addition, please specify: Present on Admission (POA): [x ] Yes [ ] No [ ] Unable to determine For continuity of documentation, please document condition throughout progress notes and discharge summary. Thank You. CLINICAL INDICATORS - SIGNS / SYMPTOMS / LABS Laboratory Hematology 06/16 -WBC 4.3, RBC 1.94, Hgb 6.7, Hct 20.2, Plt Count 83 H&P p3 06/16 Pancytopenia most likely related to recent procedure and Chemotherapy H&P p3 06/16 Fever and some positive findings for subcutaneous panniculitis RISK FACTORS H&P p1 06/16 Liver Cancer H&P p1 06/16 78-year-old female TREATMENT: Blood bank 04/16 Transfused PRBC SEP 10 IV Cefepime SEP 10 IV Vancomycin (This form is maintained as a part of the permanent medical record) 2014 [employer]. All Rights Reserved [email or web address] [not provided] MTDD
== END 2019-06-17 15:25 | disposition home or self-care (01) | DRG 920 ==
LOC: ERS 11:16 → T4-B 15:26 → ERS 18:24
PROVIDERS: ADMIT Internal Medicine; ATTEND Internal Medicine
PROC: 30233N1 Transfusion of Nonautologous Red Blood Cells into Peripheral Vein, Percutaneous Approach (ICD-10-PCS; principal; 2019-06-16)
DX: L76.82 Other postprocedural complications of skin and subcutaneous tissue (principal); C22.8 Malignant neoplasm of liver, primary, unspecified as to type; Z68.43 Body mass index [BMI] 50.0-59.9, adult; M79.3 Panniculitis, unspecified; Y83.8 Other surgical procedures as the cause of abnormal reaction of the patient, or of later complication, without mention of misadventure at the time of the procedure; E03.9 Hypothyroidism, unspecified; I10 Essential (primary) hypertension; K21.9 Gastro-esophageal reflux disease without esophagitis; G25.81 Restless legs syndrome; M81.0 Age-related osteoporosis without current pathological fracture; K58.1 Irritable bowel syndrome with constipation; M19.90 Unspecified osteoarthritis, unspecified site; E66.01 Morbid (severe) obesity due to excess calories; Z90.49 Acquired absence of other specified parts of digestive tract; Z88.5 Allergy status to narcotic agent; Z91.040 Latex allergy status; Z90.710 Acquired absence of both cervix and uterus; Z79.899 Other long term (current) drug therapy; Z79.890 Hormone replacement therapy
CPT/HCPCS: 36415; 36416; 36430; 71045; 74177; 80053; 81003; 82274; 82607; 82728; 82746; 83540; 83550; 83605; 84484; 85025; 85046; 85610; 85730; 86850; 86900; 86901; 86921; 86922; 87040; 93005; 96361; 96374; 96375; C9113; J0692; J1940; J2270; J2405; J3370; J3490; J7050; P9016; Q9967

== ENCOUNTER 2019-08-26 12:54 | Emergency (ER) | payer MEDICARE, MEDICAID ==
[2019-08-26 13:38] LABS: #Eosinphils 0.1 thou/uL (0.0-0.7); #Lymphocytes 0.8 thou/uL (1.20-3.40); #Monocytes 0.6 thou/uL (0.11-0.59); #Neutrophils 4.4 thou/uL (1.40-6.50); %Basophils 0.7 % (0.0-1.0); %Eosinophils 1.2 % (0.0-10.0); %Lymphocytes 13.3 % (21.0-51.0); %Monocytes 10.9 % (0.0-10.0); Hemoglobin 12.5 g/dL (12.0-16.0); Mean Corpuscular HGB CONC 34.3 g/dL (32.0-36.0); Mean Corpuscular Hemoglobin 35.6 pg (27.0-31.0); Mean Platelet Volume 6.9 fL (7.4-10.4); Platelet Count 168 thou/uL (130-400); RBC Distribution Width 12.8 % (11.5-14.5); Red Blood Cell (RBC) Count 3.51 mill/uL (4.20-5.40); White Blood Cell (WBC) Count 5.9 thou/uL (4.8-10.8)
[2019-08-26] MEDS ORDERED: Iopamidol-370 76% 500 ML 1 ML ONE (13:44)
[2019-08-26] MEDS ORDERED: Morphine 4 MG/ML VIAL ONE (13:47)
[2019-08-26 14:01] LABS: ALT (SGPT) 14 U/L (8-55); AST (SGOT) 23 U/L (5-34); Albumin 3.5 g/dL (3.4-4.8); Alkaline Phosphatase 112 U/L (40-110); Anion Gap 12 mmol/L (10-20); BUN (Urea Nitrogen) 9 mg/dL (9.8-20.1); Bilirubin, Total 0.5 mg/dL (0.2-1.2); Calc. Creatinine Clearance 0 mL/min (70-130); Calcium 9.7 mg/dL (7.8-10.44); Carbon Dioxide 28 mmol/L (23-31); Chloride 103 mmol/L (98-107); Estimated GFR-MDRD 67; Globulin 3.7 g/dL (2.4-3.5); Glucose 125 mg/dL (83-110); Lipase 14 U/L (8-78); Potassium 3.8 mmol/L (3.5-5.1); Protein, Total 7.2 g/dL (6.0-8.3); Sodium 139 mmol/L (136-145)
[2019-08-26 14:03] LABS: Bilirubin Negative (Negative); Blood, Urine Negative (Negative); Clarity Clear (Clear); Glucose, Urine (Dipstick) Normal (Negative); Leukocyte Negative Leu/uL (Negative); Nitrite Negative (Negative); Protein, Urine (Dipstick) Negative (Neg-Trace); Urobilinogen Normal mg/dL (Less than 2)
--- NOTE | 2019-08-26 14:34 | RAD ---
EXAM: Chest one view: HISTORY: History liver cancer, congestive heart failure, shortness of breath COMPARISON: 06/16/2019 FINDINGS: Stable right hemidiaphragm elevation. Heart size: Within normal limits. Lungs: Clear of acute process. No evidence for confluent pneumonia, pleural effusion, acute edema, or pneumothorax, or other signifi cant acute process. IMPRESSION: No significant acute intrathoracic disease. Overall stable exam. Atherosclerosis of the aorta.
--- NOTE | 2019-08-26 14:56 | CT ---
CT ANGIOGRAM THORAX WITH IV CONTRAST AND 3-D RECONSTRUCTIONS CLINICAL INDICATION: Shortness of breath. COMPARISON: 08/01/2012 FINDINGS: Pulmonary arteries: There is suboptimal evaluation of the subsegmental pulmonary arteries due to sydnee ng of the contrast bolus. However, no filling defects are seen within the central or segmental pulmonary arteries to suggest a pulmonary embolus at these levels. Aorta: Minimal vascular calcification are present the aortic arch. The thoracic aorta is normal in ca liber without evidence of an aortic dissection. Lungs: Previously seen bilateral pleural effusions have resolved. Atelectasis is present at the left lung base. There is a nodular density seen at the left posterior costophrenic angle measuring 8 mm. This could be related to volume loss in this region, but a pulmonary nodule is a possibility. Follow- up evaluation is recommended. No consolidation or pleural effusion is seen on today's exam. Mediastinum: The heart is enlarged. No lymphadenopathy is present. Thyroid gland: Grossly normal in appearance where visualized. Osseous structures: There is bilateral glenohumeral osteoarthropathy with degenerative changes in the spine. Burst fractures T12 and L1 vertebral bodies with severe vertical height loss and vertebral plana deformity involving the L1 vertebral body with severe height loss seen involving the anterior a spect T12 vertebral body. There is retropulsion of fracture fragments into the central spinal canal at this level resulting in very severe central canal narrowing. Findings were also present on CT abdo men on 06/16/2019. Osteopenia is present with degenerative changes in the spine. Lucency within the T11 vertebral bodies is again seen which may represent a large Schmorl's node. Chest wall: No abnormality visualized. Upper abdomen: Postcholecystectomy changes are seen. Large mass in the lateral segment left hepatic l obe is again seen. There is also a stable small circumscribed hypodense lesion medial aspect dome of the liver adjacent to the hepatic IVC which may represent a small cyst. Additional subcentimeter h ypodense lesions in the lateral aspect right hepatic lobe. Small hiatal hernia is present. An incompletely visualized increased density masslike lesion is seen in the junction of the midportion inferior pole left kidney also seen on CT and on 06/16/2019 as well as on study on 03/01/2019. IMPRESSION: 1. Nodular density posterior left costophrenic angle appearing 8 mm[address] Follow-up CT thorax in 6-12 kaylan hs is recommended. 2. Large hypodense mass lateral segment left hepatic lobe. This mass was seen on prior exams is again worrisome for neoplastic process. 3. Incompletely imaged increased density lesion at the junction of the inferior pole and midportion l eft kidney. 4. Cardiomegaly. 5. No CT evidence of a pulmonary embolus involving the central or segmental pulmonary arteries. The s ubsegmental pulmonary arteries are not well opacified. 6. Severe burst type fractures involving the T12 and L1 vertebral bodies with retropulsion of fractur e fragments result in severe central canal narrowing. This was seen on prior exams.
[2019-08-26] MEDS ORDERED: Furosemide 40 MG/4 ML VIAL ONE (15:21)
== END 2019-08-26 14:03 | disposition home or self-care (01) ==
LOC: ERS 12:54
DX: E87.70 Fluid overload, unspecified (principal); R10.13 Epigastric pain; G89.29 Other chronic pain; E03.9 Hypothyroidism, unspecified; I11.0 Hypertensive heart disease with heart failure; I50.9 Heart failure, unspecified; F41.9 Anxiety disorder, unspecified; C22.9 Malignant neoplasm of liver, not specified as primary or secondary; Z79.899 Other long term (current) drug therapy
CPT/HCPCS: 36415; 71045; 71275; 80053; 81003; 83605; 83690; 83880; 84484; 85025; 85379; 87804; 93005; 96374; 96375; J1940; J2270; Q9967

== ENCOUNTER 2020-11-20 17:19 | Emergency (ER) | payer MEDICARE, MEDICAID ==
[2020-11-20] MEDS ORDERED: Ketorolac Tromethamine 30 MG/ML VIAL ONE (18:10)
[2020-11-20] MEDS ORDERED: Cyclobenzaprine 10 MG TAB ONE (18:10)
== END 2020-11-20 20:01 | disposition home or self-care (01) ==
LOC: ERS 17:19
DX: S29.012A Strain of muscle and tendon of back wall of thorax, initial encounter (principal); M54.2 Cervicalgia; E03.9 Hypothyroidism, unspecified; I11.0 Hypertensive heart disease with heart failure; I50.9 Heart failure, unspecified; E66.9 Obesity, unspecified; Z79.899 Other long term (current) drug therapy; V49.9XXA Car occupant (driver) (passenger) injured in unspecified traffic accident, initial encounter; Y92.481 Parking lot as the place of occurrence of the external cause; F41.8 Other specified anxiety disorders; I10 Essential (primary) hypertension; E66.01 Morbid (severe) obesity due to excess calories; C22.0 Liver cell carcinoma; I50.32 Chronic diastolic (congestive) heart failure; R60.1 Generalized edema; K58.2 Mixed irritable bowel syndrome; R00.1 Bradycardia, unspecified
CPT/HCPCS: 93005; 96372; 99284; G0463; 99214; J1885

== ENCOUNTER 2021-12-14 00:43 | Inpatient (IN) | payer MEDICARE, MEDICAID ==
[2021-12-14 01:26] LABS: #Eosinphils 0.2 thou/uL (0.0-0.7); #Lymphocytes 0.8 thou/uL (1.20-3.40); #Monocytes 0.8 thou/uL (0.11-0.59); #Neutrophils 4.2 thou/uL (1.40-6.50); %Basophils 0.2 % (0.0-1.0); %Eosinophils 2.8 % (0.0-10.0); %Lymphocytes 13.6 % (21.0-51.0); %Monocytes 13.7 % (0.0-10.0); %Neutrophils 69.7 % (42.0-75.0); Hemoglobin 10.7 g/dL (12.0-16.0); Mean Corpuscular HGB CONC 32.4 g/dL (32.0-36.0); Mean Corpuscular Hemoglobin 36.4 pg (27.0-31.0); Mean Platelet Volume 6.8 fL (7.4-10.4); Platelet Count 146 thou/uL (130-400); RBC Distribution Width 13.1 % (11.5-14.5); Red Blood Cell (RBC) Count 2.95 mill/uL (4.20-5.40); White Blood Cell (WBC) Count 6.1 thou/uL (4.8-10.8)
[2021-12-14 01:39] LABS: ALT (SGPT) 11 U/L (8-55); AST (SGOT) 18 U/L (5-34); Albumin 3.1 g/dL (3.4-4.8); Alkaline Phosphatase 130 U/L (40-110); Anion Gap 15 mmol/L (10-20); BUN (Urea Nitrogen) 27 mg/dL (9.8-20.1); Bilirubin, Total 0.7 mg/dL (0.2-1.2); Calc. Creatinine Clearance 0 mL/min (70-130); Calcium 9.5 mg/dL (7.8-10.44); Carbon Dioxide 27 mmol/L (23-31); Chloride 102 mmol/L (98-107); Globulin 3.3 g/dL (2.4-3.5); Glucose 128 mg/dL (83-110); Magnesium 1.7 mg/dL (1.6-2.6); Potassium 3.6 mmol/L (3.5-5.1); Protein, Total 6.4 g/dL (5.8-8.1); Sodium 140 mmol/L (136-145)
[2021-12-14 01:40] LABS: MDiff Complete? YES; Macrocytosis MODERATE=16-30 cells (100X) (0-5/hpf); Ovalocytes SLIGHT = 2-5 cells (100X) (0-1/hpf); Platelet Morphology Comment Appears Adequate
[2021-12-14] MEDS ORDERED: Atropine Sulfate 1 mg/10 ml Syringe ONE (02:51)
[2021-12-14] MEDS ORDERED: Diazepam 5 MG TAB ONE (04:15)
[2021-12-14] MEDS ORDERED: Furosemide 20 MG/2 ML VIAL ONE (04:16)
[2021-12-14] MEDS ORDERED: Aspirin Chewable 81 MG TAB ONE (04:56)
[2021-12-14 06:09] LABS: Troponin I Less than 0.010 ng/mL (< 0.028)
[2021-12-14 07:31] LABS: SARS-CoV-2 NAA Rapid Test Not Detected (NotDetected)
[2021-12-14] MEDS ORDERED: Electrolyte Replacement Protocol 1 EACH FS ONE (08:18)
[2021-12-14] MEDS ORDERED: Magnesium 2 GM/50 ML(in water) 2 GM in Premix Bag 1 BAG IVPB SCH (08:45)
[2021-12-14] MEDS ORDERED: Electrolyte Replacement Protocol FS PRN (08:45)
[2021-12-14] MEDS: Enoxaparin Sodium 40 MG/0.4 ML SYRINGE SC SCH (09:22)
[2021-12-14] MEDS: Ondansetron PF 4 MG/2 ML Vial IVP PRN ×3 (09:22→20:03)
[2021-12-14] MEDS: Furosemide 40 MG/4 ML VIAL SLOW IVP SCH ×2 (09:22→20:03)
[2021-12-14] MEDS ORDERED: Bisacodyl 10 MG SUPP PR PRN (09:24)
[2021-12-14] MEDS ORDERED: Acetaminophen 650 MG Suppository PR PRN (09:24)
[2021-12-14] MEDS: DOBUTamine 500 mg/250 ml 250 ML IVPB SCH (14:49)
[2021-12-14] MEDS: Cefepime 2 GM in Sodium Chloride 0.9% 100 ML IVPB SCH (14:50)
[2021-12-14] MEDS: VANCOMYCIN 2 GRAM/500 ML BAG 2 GM in Premix Bag 1 BAG IVPB SCH (17:25)
[2021-12-15] MEDS: Cefepime 2 GM in Sodium Chloride 0.9% 100 ML IVPB SCH ×2 (01:26→15:07)
[2021-12-15] MEDS: DOBUTamine 500 mg/250 ml 250 ML IVPB SCH (01:26)
[2021-12-15] MEDS: Ondansetron PF 4 MG/2 ML Vial IVP PRN (02:35)
[2021-12-15 04:36] LABS: ALT (SGPT) 9 U/L (8-55); AST (SGOT) 16 U/L (5-34); Albumin 2.8 g/dL (3.4-4.8); Alkaline Phosphatase 110 U/L (40-110); Anion Gap 14 mmol/L (10-20); BUN (Urea Nitrogen) 21 mg/dL (9.8-20.1); Bilirubin, Total 0.9 mg/dL (0.2-1.2); Calc. Creatinine Clearance 106 mL/min (70-130); Calcium 8.9 mg/dL (7.8-10.44); Carbon Dioxide 29 mmol/L (23-31); Chloride 101 mmol/L (98-107); Globulin 2.8 g/dL (2.4-3.5); Glucose 93 mg/dL (83-110); Magnesium 1.8 mg/dL (1.6-2.6); Potassium 3.3 mmol/L (3.5-5.1); Protein, Total 5.6 g/dL (5.8-8.1); Sodium 141 mmol/L (136-145)
[2021-12-15 04:43] LABS: Band 2 % (5-11); Hemoglobin 10.2 g/dL (12.0-16.0); Lymphocytes 23 % (21-51); MDiff Complete? YES; Macrocytosis SLIGHT = 6-15 cells (100X) (0-5/hpf); Mean Corpuscular HGB CONC 33.6 g/dL (32.0-36.0); Mean Corpuscular Hemoglobin 37.4 pg (27.0-31.0); Mean Platelet Volume 6.7 fL (7.4-10.4); Monocytes 8 % (0-10); Neutrophil 67 % (42-75); Platelet Count 126 thou/uL (130-400); Platelet Morphology Comment Appears Decreased; RBC Distribution Width 13.1 % (11.5-14.5); Red Blood Cell (RBC) Count 2.74 mill/uL (4.20-5.40); White Blood Cell (WBC) Count 5.2 thou/uL (4.8-10.8)
[2021-12-15] MEDS ORDERED: Magnesium 2 GM/50 ML(in water) 2 GM in Premix Bag 1 BAG IVPB SCH (08:00)
[2021-12-15] MEDS: Potassium Chloride 20 MEQ in Premix Bag 1 BAG IVPB SCH ×2 (09:44→15:08)
[2021-12-15] MEDS: Furosemide 40 MG/4 ML VIAL SLOW IVP SCH ×2 (09:44→20:19)
[2021-12-15] MEDS: Enoxaparin Sodium 40 MG/0.4 ML SYRINGE SC SCH (09:44)
[2021-12-15] MEDS ORDERED: HYDROcodone/Acetaminophen 5/325 mg Tablet PO PRN ×2 (10:24)
[2021-12-15] MEDS ORDERED: (Linaclotide [Linzess] 145 MCG Capsule) PO SCH (11:03)
[2021-12-15] MEDS: VANCOMYCIN 2 GRAM/500 ML BAG 2 GM in Premix Bag 1 BAG IVPB SCH (15:07)
[2021-12-15] MEDS: rOPINIRole HCl 2 MG TAB PO SCH (20:19)
[2021-12-16] MEDS: Cefepime 2 GM in Sodium Chloride 0.9% 100 ML IVPB SCH ×2 (01:35→15:00)
[2021-12-16 04:25] LABS: ALT (SGPT) 10 U/L (8-55)
[2021-12-16 04:26] LABS: AST (SGOT) 29 U/L (5-34); Albumin 2.5 g/dL (3.4-4.8); Alkaline Phosphatase 67 U/L (40-110); Anion Gap 19 mmol/L (10-20); BUN (Urea Nitrogen) 15 mg/dL (9.8-20.1); Bilirubin, Total 0.8 mg/dL (0.2-1.2); Calc. Creatinine Clearance 108 mL/min (70-130); Calcium 8.5 mg/dL (7.8-10.44); Carbon Dioxide 21 mmol/L (23-31); Chloride 105 mmol/L (98-107); Globulin 3.3 g/dL (2.4-3.5); Glucose 101 mg/dL (83-110); Potassium 4.7 mmol/L (3.5-5.1); Protein, Total 5.8 g/dL (5.8-8.1); Sodium 140 mmol/L (136-145)
[2021-12-16] MEDS: Levothyroxine Sodium 100 MCG TAB PO SCH (05:52)
[2021-12-16 07:23] LABS: #Eosinphils 0.5 thou/uL (0.0-0.7); #Lymphocytes 0.5 thou/uL (1.20-3.40); #Monocytes 0.8 thou/uL (0.11-0.59); #Neutrophils 4.7 thou/uL (1.40-6.50); %Basophils 0.1 % (0.0-1.0); %Eosinophils 8.1 % (0.0-10.0); %Lymphocytes 8.4 % (21.0-51.0); %Monocytes 11.9 % (0.0-10.0); %Neutrophils 71.5 % (42.0-75.0); Hemoglobin 11.3 g/dL (12.0-16.0); Mean Corpuscular HGB CONC 32.4 g/dL (32.0-36.0); Mean Corpuscular Hemoglobin 36.6 pg (27.0-31.0); Mean Platelet Volume 6.9 fL (7.4-10.4); Platelet Count 152 thou/uL (130-400); RBC Distribution Width 13.2 % (11.5-14.5); Red Blood Cell (RBC) Count 3.08 mill/uL (4.20-5.40); White Blood Cell (WBC) Count 6.5 thou/uL (4.8-10.8)
[2021-12-16] MEDS: Losartan 25 MG TAB PO SCH (09:06)
[2021-12-16] MEDS: Furosemide 40 MG/4 ML VIAL SLOW IVP SCH ×2 (09:06→21:17)
[2021-12-16] MEDS: Enoxaparin Sodium 40 MG/0.4 ML SYRINGE SC SCH (09:07)
[2021-12-16] MEDS ORDERED: Calcium Carbonate 500 MG ChewTAB PO PRN (09:46)
[2021-12-16] MEDS ORDERED: Cepastat Lozenges 1 LOZ PO PRN (09:46)
[2021-12-16] MEDS ORDERED: hydrALAZINE 20 MG/ML VIAL SLOW IVP PRN (09:46)
[2021-12-16] MEDS ORDERED: Loperamide HCl 2 MG CAP PO PRN (09:46)
[2021-12-16] MEDS ORDERED: Sodium Chloride 0.65% Nasal 44 ML BOT EA NARE PRN (09:46)
[2021-12-16] MEDS ORDERED: GUAIFENESIN SF SOLN 200 MG/10 ML UDCUP PO PRN (09:46)
[2021-12-16] MEDS ORDERED: Artificial Tear Sol 15 ML BOT EA EYE PRN (09:46)
[2021-12-16] MEDS ORDERED: Moisturizing Cream (Eucerin) 113 GM JAR TOP PRN (09:46)
[2021-12-16 13:53] LABS: Vancomycin, Trough 19.4 ug/mL
[2021-12-16] MEDS: VANCOMYCIN 2 GRAM/500 ML BAG 2 GM in Premix Bag 1 BAG IVPB SCH (15:06)
[2021-12-16] MEDS: rOPINIRole HCl 2 MG TAB PO SCH (21:17)
[2021-12-16] MEDS: Nystatin Powder 15 GM BOT TOP SCH (21:17)
[2021-12-17] MEDS: Cefepime 2 GM in Sodium Chloride 0.9% 100 ML IVPB SCH ×2 (01:19→16:16)
[2021-12-17 03:36] LABS: CRP (Inflammatory) 6.71 mg/dL (= or < 0.5); Phosphorus 2.3 mg/dL (2.3-4.7)
[2021-12-17 03:49] LABS: Band 10 % (5-11); Eosinophils 2 % (0-10); Hemoglobin 11.6 g/dL (12.0-16.0); Hypochromia SLIGHT = 6-15 cells (100X) (0-5/hpf); Lymphocytes 6 % (21-51); MDiff Complete? YES; Mean Corpuscular HGB CONC 33.3 g/dL (32.0-36.0); Mean Corpuscular Hemoglobin 37.4 pg (27.0-31.0); Mean Platelet Volume 7.6 fL (7.4-10.4); Monocytes 12 % (0-10); Neutrophil 70 % (42-75); Platelet Count 125 thou/uL (130-400); Platelet Morphology Comment Appears Adequate; RBC Distribution Width 13.2 % (11.5-14.5); White Blood Cell (WBC) Count 6.4 thou/uL (4.8-10.8)
[2021-12-17] MEDS: rOPINIRole HCl 2 MG TAB PO SCH ×2 (03:57→22:00)
[2021-12-17 04:02] LABS: ALT (SGPT) 9 U/L (8-55); AST (SGOT) 19 U/L (5-34); Albumin 2.4 g/dL (3.4-4.8); Alkaline Phosphatase 102 U/L (40-110); Anion Gap 15 mmol/L (10-20); BUN (Urea Nitrogen) 14 mg/dL (9.8-20.1); Bilirubin, Total 0.7 mg/dL (0.2-1.2); Calc. Creatinine Clearance 122 mL/min (70-130); Calcium 7.7 mg/dL (7.8-10.44); Carbon Dioxide 30 mmol/L (23-31); Chloride 100 mmol/L (98-107); Globulin 2.8 g/dL (2.4-3.5); Glucose 109 mg/dL (83-110); Magnesium 1.5 mg/dL (1.6-2.6); Potassium 3.4 mmol/L (3.5-5.1); Protein, Total 5.2 g/dL (5.8-8.1); Sodium 142 mmol/L (136-145)
[2021-12-17] MEDS ORDERED: Potassium Chloride 20 MEQ TAB PO SCH (04:30)
[2021-12-17] MEDS ORDERED: Magnesium 2 GM/50 ML(in water) 2 GM in Premix Bag 1 BAG IVPB SCH (04:30)
[2021-12-17] MEDS: Levothyroxine Sodium 100 MCG TAB PO SCH (05:44)
[2021-12-17 07:31] LABS: Free T4 (Free Thyroxine) 0.61 ng/dL (0.70-1.48)
[2021-12-17] MEDS: Losartan 25 MG TAB PO SCH (08:39)
[2021-12-17] MEDS: Nystatin Powder 15 GM BOT TOP SCH ×2 (08:39→20:04)
[2021-12-17] MEDS: Furosemide 40 MG/4 ML VIAL SLOW IVP SCH ×2 (08:39→20:04)
[2021-12-17] MEDS: Enoxaparin Sodium 40 MG/0.4 ML SYRINGE SC SCH (08:39)
[2021-12-17] MEDS: VANCOMYCIN 2 GRAM/500 ML BAG 2 GM in Premix Bag 1 BAG IVPB SCH (16:16)
[2021-12-17] MEDS ORDERED: Diazepam 5 MG TAB PO PRN (19:51)
[2021-12-18] MEDS: Cefepime 2 GM in Sodium Chloride 0.9% 100 ML IVPB SCH (01:14)
[2021-12-18 04:14] LABS: #Eosinphils 0.7 thou/uL (0.0-0.7); #Lymphocytes 0.6 thou/uL (1.20-3.40); #Monocytes 0.8 thou/uL (0.11-0.59); #Neutrophils 4.8 thou/uL (1.40-6.50); %Basophils 0.4 % (0.0-1.0); %Eosinophils 9.8 % (0.0-10.0); %Lymphocytes 8.1 % (21.0-51.0); %Monocytes 11.3 % (0.0-10.0); %Neutrophils 70.4 % (42.0-75.0); Mean Corpuscular HGB CONC 33.2 g/dL (32.0-36.0); Mean Corpuscular Hemoglobin 37.1 pg (27.0-31.0); Mean Platelet Volume 6.2 fL (7.4-10.4); Platelet Count 173 thou/uL (130-400); Red Blood Cell (RBC) Count 2.97 mill/uL (4.20-5.40); White Blood Cell (WBC) Count 6.9 thou/uL (4.8-10.8)
[2021-12-18] MEDS: Levothyroxine Sodium 100 MCG TAB PO SCH (05:05)
[2021-12-18 09:13] LABS: Anion Gap 11 mmol/L (10-20); BUN (Urea Nitrogen) 12 mg/dL (9.8-20.1); Calc. Creatinine Clearance 111 mL/min (70-130); Calcium 8.5 mg/dL (7.8-10.44); Carbon Dioxide 34 mmol/L (23-31); Chloride 98 mmol/L (98-107); Glucose 125 mg/dL (83-110); Magnesium 1.6 mg/dL (1.6-2.6); Potassium 3.1 mmol/L (3.5-5.1); Sodium 140 mmol/L (136-145)
[2021-12-18] MEDS ORDERED: Magnesium 2 GM/50 ML(in water) 2 GM in Premix Bag 1 BAG IVPB SCH (10:00)
[2021-12-18] MEDS: Ondansetron PF 4 MG/2 ML Vial IVP PRN ×2 (10:00→19:47)
[2021-12-18] MEDS ORDERED: Potassium Chloride 20 MEQ TAB PO SCH (10:00)
[2021-12-18] MEDS: Enoxaparin Sodium 40 MG/0.4 ML SYRINGE SC SCH (12:17)
[2021-12-18] MEDS: cefTRIAXone\\ROCEPHIN 2 GM in Sodium Chloride 0.9% 100 ML IVPB SCH (12:18)
[2021-12-18] MEDS: Losartan 25 MG TAB PO SCH (12:20)
[2021-12-18] MEDS: Furosemide 40 MG/4 ML VIAL SLOW IVP SCH ×2 (12:20→21:25)
[2021-12-18] MEDS: Nystatin Powder 15 GM BOT TOP SCH ×2 (12:22→21:31)
[2021-12-18] MEDS ORDERED: Communication Order-Pharmacy FS PRN (14:45)
[2021-12-18] MEDS: rOPINIRole HCl 2 MG TAB PO SCH (21:25)
[2021-12-19] MEDS: Acetaminophen 325 MG TAB PO PRN (03:11)
[2021-12-19] MEDS: Ondansetron PF 4 MG/2 ML Vial IVP PRN ×3 (03:19→18:29)
[2021-12-19 03:27] LABS: #Eosinphils 0.9 thou/uL (0.0-0.7); #Lymphocytes 0.6 thou/uL (1.20-3.40); #Monocytes 1.2 thou/uL (0.11-0.59); #Neutrophils 6.8 thou/uL (1.40-6.50); %Basophils 0.1 % (0.0-1.0); %Eosinophils 9.1 % (0.0-10.0); %Lymphocytes 6.3 % (21.0-51.0); %Monocytes 12.6 % (0.0-10.0); %Neutrophils 71.8 % (42.0-75.0); Hemoglobin 11.8 g/dL (12.0-16.0); Mean Corpuscular HGB CONC 32.8 g/dL (32.0-36.0); Mean Corpuscular Hemoglobin 36.7 pg (27.0-31.0); Mean Platelet Volume 7.5 fL (7.4-10.4); Platelet Count 145 thou/uL (130-400); RBC Distribution Width 13.4 % (11.5-14.5); Red Blood Cell (RBC) Count 3.23 mill/uL (4.20-5.40); White Blood Cell (WBC) Count 9.5 thou/uL (4.8-10.8)
[2021-12-19 03:46] LABS: Anion Gap 15 mmol/L (10-20); BUN (Urea Nitrogen) 12 mg/dL (9.8-20.1); Calc. Creatinine Clearance 107 mL/min (70-130); Calcium 8.6 mg/dL (7.8-10.44); Carbon Dioxide 30 mmol/L (23-31); Chloride 100 mmol/L (98-107); Glucose 114 mg/dL (83-110); Magnesium 1.9 mg/dL (1.6-2.6); Potassium 3.6 mmol/L (3.5-5.1); Sodium 141 mmol/L (136-145)
[2021-12-19] MEDS ORDERED: Magnesium 2 GM/50 ML(in water) 2 GM in Premix Bag 1 BAG IVPB SCH (05:00)
[2021-12-19] MEDS: Levothyroxine Sodium 100 MCG TAB PO SCH (05:51)
[2021-12-19] MEDS ORDERED: DOBUTamine 500 mg/250 ml 500 MG in Premix Bag 1 BAG IVPB SCH ×3 (06:30→19:30)
[2021-12-19] MEDS: Nystatin Powder 15 GM BOT TOP SCH ×2 (10:24→21:48)
[2021-12-19] MEDS: Furosemide 40 MG/4 ML VIAL SLOW IVP SCH (10:36)
[2021-12-19] MEDS: Losartan 25 MG TAB PO SCH (10:36)
[2021-12-19] MEDS ORDERED: DOPamine 400 MG/D5W 250 ML 250 ML ONE (12:48)
[2021-12-19] MEDS: cefTRIAXone\\ROCEPHIN 2 GM in Sodium Chloride 0.9% 100 ML IVPB SCH ×2 (13:16→13:49)
[2021-12-19] MEDS: Enoxaparin Sodium 40 MG/0.4 ML SYRINGE SC SCH (13:17)
[2021-12-19] MEDS ORDERED: Potassium Chloride 20 MEQ TAB PO SCH (13:24)
[2021-12-19] MEDS ORDERED: DOPamine 400 MG/D5W 250 ML 250 ML IVPB SCH ×2 (13:30→13:45)
[2021-12-19] MEDS ORDERED: Sodium Chloride 0.9% 500 ML IV SCH (13:30)
[2021-12-19] MEDS ORDERED: hydrOXYzine 10 MG TAB PO PRN (13:54)
[2021-12-19] MEDS ORDERED: Piperacillin/Tazobactam 3.375 GM in Sodium Chloride 0.9% 100 ML IVPB SCH ×2 (14:00→18:00)
[2021-12-19] MEDS ORDERED: Hydrocortisone Sod Succ/PF 250 mg/2 ml Vial SLOW IVP SCH (18:00)
[2021-12-19] MEDS: Piperacillin/Tazobactam 3.375 GM in Sodium Chloride 0.9% 100 ML IVPB SCH (18:29)
[2021-12-19] MEDS: Sodium Chloride 0.9% 1,000 ML IV SCH (18:30)
[2021-12-19] MEDS: DOPamine 400 MG/D5W 250 ML 250 ML IVPB SCH (20:58)
[2021-12-19] MEDS: rOPINIRole HCl 2 MG TAB PO SCH (21:48)
[2021-12-19] MEDS ORDERED: Norepinephrine 8 MG/0.9% NS 250 ML IVPB PRN (22:32)
[2021-12-20] MEDS: Hydrocortisone Sod Succ/PF 100 mg/2 ml Vial IVP SCH ×5 (00:29→23:40)
[2021-12-20] MEDS: DOPamine 400 MG/D5W 250 ML 250 ML IVPB SCH ×3 (00:48→23:40)
[2021-12-20] MEDS: Acetaminophen 325 MG TAB PO PRN ×2 (01:26→23:11)
[2021-12-20] MEDS: Piperacillin/Tazobactam 3.375 GM in Sodium Chloride 0.9% 100 ML IVPB SCH ×3 (01:29→18:45)
[2021-12-20] MEDS: Sodium Chloride 0.9% 1,000 ML IV SCH (03:23)
[2021-12-20 04:21] LABS: #Eosinphils 0.5 thou/uL (0.0-0.7); #Lymphocytes 0.4 thou/uL (1.20-3.40); #Monocytes 0.9 thou/uL (0.11-0.59); #Neutrophils 11.1 thou/uL (1.40-6.50); %Eosinophils 3.9 % (0.0-10.0); %Lymphocytes 2.9 % (21.0-51.0); %Monocytes 7.3 % (0.0-10.0); Hemoglobin 11.8 g/dL (12.0-16.0); Mean Corpuscular HGB CONC 32.5 g/dL (32.0-36.0); Mean Corpuscular Hemoglobin 36.4 pg (27.0-31.0); Mean Platelet Volume 5.9 fL (7.4-10.4); Platelet Count 222 thou/uL (130-400); RBC Distribution Width 13.2 % (11.5-14.5); Red Blood Cell (RBC) Count 3.24 mill/uL (4.20-5.40); White Blood Cell (WBC) Count 12.9 thou/uL (4.8-10.8)
[2021-12-20 04:42] LABS: ALT (SGPT) 9 U/L (8-55); AST (SGOT) 15 U/L (5-34); Albumin 3.1 g/dL (3.4-4.8); Alkaline Phosphatase 99 U/L (40-110); Anion Gap 12 mmol/L (10-20); BUN (Urea Nitrogen) 14 mg/dL (9.8-20.1); Bilirubin, Total 0.9 mg/dL (0.2-1.2); Calc. Creatinine Clearance 84 mL/min (70-130); Calcium 9.1 mg/dL (7.8-10.44); Carbon Dioxide 33 mmol/L (23-31); Chloride 97 mmol/L (98-107); Glucose 179 mg/dL (83-110); Potassium 3.3 mmol/L (3.5-5.1); Protein, Total 6.1 g/dL (5.8-8.1); Sodium 139 mmol/L (136-145)
[2021-12-20] MEDS ORDERED: Potassium Chloride 40 MEQ in Premix Bag 1 BAG IVPB SCH (05:00)
[2021-12-20] MEDS: Levothyroxine Sodium 100 MCG TAB PO SCH (05:21)
[2021-12-20] MEDS: Enoxaparin Sodium 40 MG/0.4 ML SYRINGE SC SCH (09:59)
[2021-12-20] MEDS: Nystatin Powder 15 GM BOT TOP SCH ×2 (10:05→20:26)
[2021-12-20] MEDS: rOPINIRole HCl 2 MG TAB PO SCH (20:17)
[2021-12-21 00:54] LABS: Potassium 3.3 mmol/L (3.5-5.1)
[2021-12-21] MEDS ORDERED: Potassium Chloride 20 MEQ TAB PO SCH (02:30)
[2021-12-21] MEDS: Piperacillin/Tazobactam 3.375 GM in Sodium Chloride 0.9% 100 ML IVPB SCH ×3 (02:48→18:03)
[2021-12-21 06:03] VITALS: BMI 93.6
[2021-12-21] MEDS: Hydrocortisone Sod Succ/PF 100 mg/2 ml Vial IVP SCH ×4 (06:07→23:31)
[2021-12-21] MEDS: Levothyroxine Sodium 100 MCG TAB PO SCH (06:08)
[2021-12-21 07:39] LABS: #Basophils 0.2 thou/uL (0.0-0.2); #Eosinphils 0.2 thou/uL (0.0-0.7); #Lymphocytes 0.3 thou/uL (1.20-3.40); #Monocytes 0.4 thou/uL (0.11-0.59); #Neutrophils 8.6 thou/uL (1.40-6.50); %Basophils 1.8 % (0.0-1.0); %Eosinophils 2.3 % (0.0-10.0); %Lymphocytes 3.5 % (21.0-51.0); %Monocytes 4.6 % (0.0-10.0); %Neutrophils 87.8 % (42.0-75.0); Hemoglobin 11.1 g/dL (12.0-16.0); Mean Corpuscular HGB CONC 32.5 g/dL (32.0-36.0); Mean Corpuscular Hemoglobin 36.8 pg (27.0-31.0); Mean Platelet Volume 5.8 fL (7.4-10.4); Platelet Count 189 thou/uL (130-400); RBC Distribution Width 12.9 % (11.5-14.5); Red Blood Cell (RBC) Count 3.03 mill/uL (4.20-5.40); White Blood Cell (WBC) Count 9.8 thou/uL (4.8-10.8)
[2021-12-21 08:04] LABS: ALT (SGPT) 7 U/L (8-55); AST (SGOT) 14 U/L (5-34); Albumin 2.7 g/dL (3.4-4.8); Alkaline Phosphatase 90 U/L (40-110); Anion Gap 10 mmol/L (10-20); BUN (Urea Nitrogen) 14 mg/dL (9.8-20.1); Bilirubin, Total 0.6 mg/dL (0.2-1.2); Calc. Creatinine Clearance 117 mL/min (70-130); Carbon Dioxide 34 mmol/L (23-31); Chloride 101 mmol/L (98-107); Globulin 2.8 g/dL (2.4-3.5); Glucose 162 mg/dL (83-110); Phosphorus 2.1 mg/dL (2.3-4.7); Potassium 3.8 mmol/L (3.5-5.1); Protein, Total 5.5 g/dL (5.8-8.1); Sodium 141 mmol/L (136-145)
[2021-12-21] MEDS ORDERED: Morphine 2 MG/ML VIAL SLOW IVP SCH (08:15)
[2021-12-21] MEDS ORDERED: Magnesium 2 GM/50 ML(in water) 2 GM in Premix Bag 1 BAG IVPB SCH (09:00)
[2021-12-21] MEDS: Nystatin Powder 15 GM BOT TOP SCH ×2 (09:00→20:04)
[2021-12-21] MEDS: Enoxaparin Sodium 40 MG/0.4 ML SYRINGE SC SCH (09:30)
[2021-12-21] MEDS ORDERED: Sodium Chloride 0.9% 500 ML IV SCH ×2 (12:15→12:30)
[2021-12-21] MEDS: rOPINIRole HCl 2 MG TAB PO SCH (20:03)
[2021-12-22] MEDS: Piperacillin/Tazobactam 3.375 GM in Sodium Chloride 0.9% 100 ML IVPB SCH ×3 (02:04→18:01)
[2021-12-22 03:25] LABS: #Lymphocytes 0.5 thou/uL (1.20-3.40); #Monocytes 0.3 thou/uL (0.11-0.59); #Neutrophils 5.9 thou/uL (1.40-6.50); %Basophils 0.5 % (0.0-1.0); %Eosinophils 0.2 % (0.0-10.0); %Monocytes 4.3 % (0.0-10.0); Hemoglobin 9.9 g/dL (12.0-16.0); Mean Corpuscular HGB CONC 31.8 g/dL (32.0-36.0); Mean Corpuscular Hemoglobin 36.6 pg (27.0-31.0); Mean Platelet Volume 6.1 fL (7.4-10.4); Platelet Count 148 thou/uL (130-400); Red Blood Cell (RBC) Count 2.72 mill/uL (4.20-5.40); White Blood Cell (WBC) Count 6.7 thou/uL (4.8-10.8)
[2021-12-22 04:13] LABS: ALT (SGPT) 8 U/L (8-55); AST (SGOT) 16 U/L (5-34); Albumin 2.6 g/dL (3.4-4.8); Alkaline Phosphatase 81 U/L (40-110); Anion Gap 8 mmol/L (10-20); BUN (Urea Nitrogen) 17 mg/dL (9.8-20.1); Bilirubin, Total 0.4 mg/dL (0.2-1.2); Calc. Creatinine Clearance 110 mL/min (70-130); Calcium 9.2 mg/dL (7.8-10.44); Carbon Dioxide 36 mmol/L (23-31); Chloride 102 mmol/L (98-107); Globulin 2.8 g/dL (2.4-3.5); Glucose 160 mg/dL (83-110); Potassium 3.9 mmol/L (3.5-5.1); Protein, Total 5.4 g/dL (5.8-8.1); Sodium 142 mmol/L (136-145)
[2021-12-22] MEDS: Hydrocortisone Sod Succ/PF 100 mg/2 ml Vial IVP SCH ×2 (05:45→20:34)
[2021-12-22] MEDS: Levothyroxine Sodium 100 MCG TAB PO SCH (05:45)
[2021-12-22] MEDS: Nystatin Powder 15 GM BOT TOP SCH ×2 (08:37→20:35)
[2021-12-22] MEDS: Enoxaparin Sodium 40 MG/0.4 ML SYRINGE SC SCH (08:37)
[2021-12-22] MEDS: Furosemide 20 MG TAB PO SCH (08:37)
[2021-12-22] MEDS: Ondansetron PF 4 MG/2 ML Vial IVP PRN (12:19)
[2021-12-22] MEDS: rOPINIRole HCl 2 MG TAB PO SCH (20:34)
[2021-12-23] MEDS: Piperacillin/Tazobactam 3.375 GM in Sodium Chloride 0.9% 100 ML IVPB SCH ×2 (01:45→09:56)
[2021-12-23 04:36] LABS: #Lymphocytes 0.6 thou/uL (1.20-3.40); #Monocytes 0.4 thou/uL (0.11-0.59); #Neutrophils 6.4 thou/uL (1.40-6.50); %Eosinophils 0.5 % (0.0-10.0); %Lymphocytes 8.2 % (21.0-51.0); %Monocytes 5.7 % (0.0-10.0); %Neutrophils 85.6 % (42.0-75.0); Hemoglobin 10.3 g/dL (12.0-16.0); Mean Corpuscular Hemoglobin 36.9 pg (27.0-31.0); Mean Platelet Volume 6.6 fL (7.4-10.4); Platelet Count 153 thou/uL (130-400); RBC Distribution Width 13.2 % (11.5-14.5); White Blood Cell (WBC) Count 7.5 thou/uL (4.8-10.8)
[2021-12-23 05:04] LABS: ALT (SGPT) 10 U/L (8-55); AST (SGOT) 17 U/L (5-34); Albumin 2.7 g/dL (3.4-4.8); Alkaline Phosphatase 83 U/L (40-110); Anion Gap 10 mmol/L (10-20); BUN (Urea Nitrogen) 24 mg/dL (9.8-20.1); Bilirubin, Total 0.4 mg/dL (0.2-1.2); Calc. Creatinine Clearance 94 mL/min (70-130); Calcium 9.4 mg/dL (7.8-10.44); Carbon Dioxide 35 mmol/L (23-31); Chloride 103 mmol/L (98-107); Globulin 2.8 g/dL (2.4-3.5); Glucose 145 mg/dL (83-110); Potassium 3.9 mmol/L (3.5-5.1); Protein, Total 5.5 g/dL (5.8-8.1); Sodium 144 mmol/L (136-145)
[2021-12-23] MEDS: Levothyroxine Sodium 100 MCG TAB PO SCH (05:42)
[2021-12-23 08:25] VITALS: TEMP 97
[2021-12-23] MEDS: Hydrocortisone Sod Succ/PF 100 mg/2 ml Vial IVP SCH (09:00)
[2021-12-23] MEDS ORDERED: Enoxaparin Sodium 60 MG/0.6 ML SYRINGE SC SCH (09:00)
[2021-12-23] MEDS: Furosemide 20 MG TAB PO SCH (09:00)
[2021-12-23] MEDS: Nystatin Powder 15 GM BOT TOP SCH (09:00)
[2021-12-23 12:08] VITALS: BP 159/66
== END 2021-12-23 16:10 | DRG 602 ==
LOC: ERS 00:43 → CCU 03:16 → IMCU/EMU 12-15 17:06 → CCU 12-19 19:33 → IMCU/EMU 12-21 22:24
PROVIDERS: ADMIT Internal Medicine; ATTEND Internal Medicine
PROC: 05HM33Z Insertion of Infusion Device into Right Internal Jugular Vein, Percutaneous Approach (ICD-10-PCS; principal; 2021-12-19)
PROC: B543ZZA Ultrasonography of Right Jugular Veins, Guidance (ICD-10-PCS; 2021-12-19)
PROC: 3E043XZ Introduction of Vasopressor into Central Vein, Percutaneous Approach (ICD-10-PCS; 2021-12-19)
DX: L03.115 Cellulitis of right lower limb (principal); I50.33 Acute on chronic diastolic (congestive) heart failure; I44.2 Atrioventricular block, complete; Z68.45 Body mass index [BMI] 70 or greater, adult; E27.40 Unspecified adrenocortical insufficiency; I42.9 Cardiomyopathy, unspecified; I11.0 Hypertensive heart disease with heart failure; Z20.822 Contact with and (suspected) exposure to COVID-19; E03.9 Hypothyroidism, unspecified; F41.9 Anxiety disorder, unspecified; M81.0 Age-related osteoporosis without current pathological fracture; K21.9 Gastro-esophageal reflux disease without esophagitis; G25.81 Restless legs syndrome; K58.1 Irritable bowel syndrome with constipation; K74.60 Unspecified cirrhosis of liver; I27.20 Pulmonary hypertension, unspecified; I89.0 Lymphedema, not elsewhere classified; E66.01 Morbid (severe) obesity due to excess calories; G47.33 Obstructive sleep apnea (adult) (pediatric); G89.29 Other chronic pain; K75.81 Nonalcoholic steatohepatitis (NASH); D53.9 Nutritional anemia, unspecified; I44.60 Unspecified fascicular block; E87.6 Hypokalemia; E83.42 Hypomagnesemia; I95.9 Hypotension, unspecified; L30.4 Erythema intertrigo; Z90.710 Acquired absence of both cervix and uterus; Z85.05 Personal history of malignant neoplasm of liver; Z88.5 Allergy status to narcotic agent; Z91.040 Latex allergy status; Z79.890 Hormone replacement therapy; Z79.899 Other long term (current) drug therapy; Z90.49 Acquired absence of other specified parts of digestive tract; Z98.51 Tubal ligation status; Z87.440 Personal history of urinary (tract) infections
CPT/HCPCS: 36415; 36416; 71045; 80048; 80053; 80202; 82533; 83735; 83880; 84100; 84439; 84443; 84481; 84484; 85025; 86140; 87040; 93005; 93010; 93306; 96374; 96375; J0461; J0692; J0696; J1250; J1265; J1650; J1720; J1940; J2405; J2543; J3370; J3475; J3480; J3490; J7030; J7050; P9045; U0002; U0003; U0005

== ENCOUNTER 2022-01-21 07:28 | Observation (INO) | payer MEDICARE, MEDICAID ==
[2022-01-21 08:09] LABS: Mean Corpuscular HGB CONC 32.5 g/dL (32.0-36.0); Mean Corpuscular Hemoglobin 35.9 pg (27.0-31.0); Mean Platelet Volume 6.5 fL (7.4-10.4); Platelet Count 233 thou/uL (130-400); RBC Distribution Width 14.6 % (11.5-14.5); Red Blood Cell (RBC) Count 2.78 mill/uL (4.20-5.40); White Blood Cell (WBC) Count 7.2 thou/uL (4.8-10.8)
[2022-01-21 08:27] LABS: ALT (SGPT) 8 U/L (8-55); AST (SGOT) 16 U/L (5-34); Albumin 2.5 g/dL (3.4-4.8); Alkaline Phosphatase 137 U/L (40-110); Anion Gap 16 mmol/L (10-20); BUN (Urea Nitrogen) 14 mg/dL (9.8-20.1); Bilirubin, Total 1.8 mg/dL (0.2-1.2); Calc. Creatinine Clearance 0 mL/min (70-130); Calcium 7.8 mg/dL (7.8-10.44); Carbon Dioxide 29 mmol/L (23-31); Chloride 96 mmol/L (98-107); Estimated GFR 87; Globulin 2.7 g/dL (2.4-3.5); Glucose 113 mg/dL (83-110); Potassium 3.8 mmol/L (3.5-5.1); Protein, Total 5.2 g/dL (5.8-8.1); Sodium 137 mmol/L (136-145)
[2022-01-21 08:28] LABS: Band 16 % (5-11); Eosinophils 2 % (0-10); Lymphocytes 8 % (21-51); MDiff Complete? YES; Metamyelocyte 1 % (0-0); Monocytes 18 % (0-10); Neutrophil 54 % (42-75); Platelet Morphology Comment Appears Adequate; Polychromasia SLIGHT = 2-3 cells (100X) (0-2/hpf)
[2022-01-21] MEDS ORDERED: Ondansetron ODT 4 MG TAB ONE (09:20)
[2022-01-21] MEDS ORDERED: Aspirin Chewable 81 MG TAB ONE (10:43)
[2022-01-21] MEDS ORDERED: Nitroglycerin 2% Ointment 1 INCH/1 GM Packet ONE (10:43)
[2022-01-21 12:21] LABS: Troponin I Less than 0.010 ng/mL (< 0.028)
[2022-01-21] MEDS ORDERED: Bisacodyl 5 MG TAB PO PRN (13:35)
[2022-01-21] MEDS ORDERED: Senokot S 8.6-50 MG TAB PO PRN (13:35)
[2022-01-21] MEDS ORDERED: Ondansetron ODT 4 MG TAB PO PRN (13:35)
[2022-01-21] MEDS ORDERED: Acetaminophen 325 MG TAB PO PRN (13:35)
[2022-01-21] MEDS ORDERED: Cyclobenzaprine 10 MG TAB PO PRN (13:40)
[2022-01-21] MEDS ORDERED: Ketorolac Tromethamine 30 MG/ML VIAL IVP SCH (13:45)
[2022-01-21] MEDS ORDERED: Non-Formulary Item 1 EACH (Linaclotide [Linzess] 145 MCG Capsule) PO SCH (14:00)
[2022-01-21] MEDS ORDERED: Levothyroxine Sodium 25 MCG TAB PO SCH (14:00)
[2022-01-21] MEDS ORDERED: Ondansetron ODT 8 MG TAB PO PRN (14:03)
[2022-01-21] MEDS ORDERED: Cyclobenzaprine 10 MG TAB PO SCH (14:30)
[2022-01-21 14:38] LABS: INR-International Normal Ratio 1.4; Prothrombin Time 17.7 sec (12.0-14.7)
[2022-01-21 15:08] VITALS: BMI 61.8
[2022-01-21 16:20] LABS: Troponin I Less than 0.010 ng/mL (< 0.028)
[2022-01-21] MEDS ORDERED: rOPINIRole HCl 2 MG TAB PO SCH (21:00)
[2022-01-21] MEDS: Furosemide 20 MG TAB PO SCH (21:33)
[2022-01-22 05:10] LABS: ALT (SGPT) 8 U/L (8-55); AST (SGOT) 13 U/L (5-34); Albumin 2.3 g/dL (3.4-4.8); Alkaline Phosphatase 128 U/L (40-110); Anion Gap 12 mmol/L (10-20); BUN (Urea Nitrogen) 15 mg/dL (9.8-20.1); Bilirubin, Total 1.6 mg/dL (0.2-1.2); Calc. Creatinine Clearance 126 mL/min (70-130); Calcium 7.6 mg/dL (7.8-10.44); Carbon Dioxide 31 mmol/L (23-31); Chloride 96 mmol/L (98-107); Estimated GFR 87; Globulin 2.7 g/dL (2.4-3.5); Glucose 96 mg/dL (83-110); Potassium 3.2 mmol/L (3.5-5.1); Sodium 136 mmol/L (136-145)
[2022-01-22 05:38] LABS: Band 2 % (5-11); Eosinophils 4 % (0-10); Hemoglobin 9.7 g/dL (12.0-16.0); Lymphocytes 24 % (21-51); MDiff Complete? YES; Macrocytosis SLIGHT = 6-15 cells (100X) (0-5/hpf); Mean Corpuscular HGB CONC 32.2 g/dL (32.0-36.0); Mean Corpuscular Hemoglobin 36.4 pg (27.0-31.0); Mean Platelet Volume 6.5 fL (7.4-10.4); Monocytes 11 % (0-10); Neutrophil 59 % (42-75); Platelet Count 188 thou/uL (130-400); Platelet Morphology Comment Appears Adequate; Red Blood Cell (RBC) Count 2.66 mill/uL (4.20-5.40); White Blood Cell (WBC) Count 5.6 thou/uL (4.8-10.8)
[2022-01-22 08:28] VITALS: TEMP 97.5
[2022-01-22] MEDS ORDERED: Potassium Chloride 20 MEQ TAB PO SCH (09:00)
[2022-01-22] MEDS ORDERED: Losartan 25 MG TAB PO SCH (09:00)
[2022-01-22] MEDS ORDERED: Enoxaparin Sodium 40 MG/0.4 ML SYRINGE SC SCH (09:00)
[2022-01-22] MEDS: Furosemide 20 MG TAB PO SCH (09:21)
[2022-01-22 12:16] VITALS: BP 131/55
== END 2022-01-22 16:30 | disposition home or self-care (01) ==
LOC: ERS 07:28 → 2NO 11:39
PROVIDERS: ADMIT Internal Medicine; ATTEND Internal Medicine
DX: M25.512 Pain in left shoulder (principal); M79.602 Pain in left arm; M19.012 Primary osteoarthritis, left shoulder; I44.7 Left bundle-branch block, unspecified; I11.0 Hypertensive heart disease with heart failure; I50.30 Unspecified diastolic (congestive) heart failure; E03.9 Hypothyroidism, unspecified; L03.115 Cellulitis of right lower limb; L03.116 Cellulitis of left lower limb; D64.9 Anemia, unspecified; I44.1 Atrioventricular block, second degree; K58.9 Irritable bowel syndrome, unspecified; G25.81 Restless legs syndrome; E66.01 Morbid (severe) obesity due to excess calories; Z68.44 Body mass index [BMI] 60.0-69.9, adult; Z85.05 Personal history of malignant neoplasm of liver; Z79.890 Hormone replacement therapy; Z79.899 Other long term (current) drug therapy; Z88.1 Allergy status to other antibiotic agents; Z88.5 Allergy status to narcotic agent; Z91.040 Latex allergy status; Z20.822 Contact with and (suspected) exposure to COVID-19
CPT/HCPCS: 71045; 73030; 80053 ×2; 82962; 84484 ×2; 85025 ×2; 85610; 93005; U0003; U0005; 36415; 36416; 96372; 96374; G0378; J1650; J1885; Q0162

== ENCOUNTER 2022-01-30 13:03 | Inpatient (IN) | payer MEDICARE, MEDICAID ==
[2022-01-30] MEDS ORDERED: Cefepime 2 GM VIAL ONE (13:29)
[2022-01-30] MEDS ORDERED: Vancomycin 1 GM/200 ML BAG ONE (13:29)
[2022-01-30 13:43] LABS: Hemoglobin 11.8 g/dL (12.0-16.0); Mean Corpuscular HGB CONC 32.5 g/dL (32.0-36.0); Mean Corpuscular Hemoglobin 36.1 pg (27.0-31.0); RBC Distribution Width 15.3 % (11.5-14.5); Red Blood Cell (RBC) Count 3.28 mill/uL (4.20-5.40)
[2022-01-30 14:03] LABS: ALT (SGPT) 15 U/L (8-55); AST (SGOT) 48 U/L (5-34); Albumin 2.8 g/dL (3.4-4.8); Alkaline Phosphatase 141 U/L (40-110); Anion Gap 20 mmol/L (10-20); BUN (Urea Nitrogen) 18 mg/dL (9.8-20.1); Bilirubin, Total 1.8 mg/dL (0.2-1.2); CK (CPK) 15 U/L (29-168); Calc. Creatinine Clearance 0 mL/min (70-130); Calcium 8.1 mg/dL (7.8-10.44); Carbon Dioxide 25 mmol/L (23-31); Chloride 98 mmol/L (98-107); Estimated GFR 67; Globulin 3.9 g/dL (2.4-3.5); Glucose 105 mg/dL (83-110); Lipase 10 U/L (8-78); Potassium 4.3 mmol/L (3.5-5.1); Protein, Total 6.7 g/dL (5.8-8.1); Sodium 139 mmol/L (136-145)
[2022-01-30 14:10] LABS: Band 11 % (5-11); Lymphocytes 4 % (21-51); MDiff Complete? YES; Monocytes 7 % (0-10); Neutrophil 78 % (42-75); Platelet Count 188 thou/uL (130-400); Platelet Morphology Comment Appears Adequate; Polychromasia SLIGHT = 2-3 cells (100X) (0-2/hpf); White Blood Cell (WBC) Count 17.9 thou/uL (4.8-10.8)
[2022-01-30 14:16] LABS: CKMB 0.3 ng/mL (0-6.6)
[2022-01-30] MEDS ORDERED: NOREPINEPHRINE 8 MG/250 ML-D5W 250 ML ONE (15:15)
[2022-01-30] MEDS ORDERED: Norepinephrine 4 MG/4 ML VIAL ONE (15:15)
[2022-01-30 16:50] LABS: Lactic Acid 3.6 mmol/L (0.5-2.2)
[2022-01-30 17:10] LABS: SARS-CoV-2 NAA Rapid Test Not Detected (NotDetected)
[2022-01-30] MEDS ORDERED: NOREPINEPHRINE 8 MG/250 ML-D5W 250 ML IVPB PRN (18:36)
[2022-01-30] MEDS ORDERED: Electrolyte Replacement Protocol 1 EACH IVPB ONE (18:36)
[2022-01-30] MEDS ORDERED: Electrolyte Replacement Protocol FS PRN (18:45)
[2022-01-30 19:11] LABS: Lactic Acid 2.9 mmol/L (0.5-2.2)
[2022-01-30 19:18] LABS: Troponin I 0.082 ng/mL (< 0.028)
[2022-01-30] MEDS ORDERED: Vancomycin 1 GM in Premix Bag 1 BAG IVPB SCH (19:45)
[2022-01-30 20:12] LABS: Bilirubin 1+ (Negative); Blood, Urine Negative (Negative); Clarity Clear (Clear); Glucose, Urine (Dipstick) Normal (Negative); Ketone, Urine Trace mg/dL (Negative); Leukocyte 25 Leu/uL (Negative); Nitrite Negative (Negative); Protein, Urine (Dipstick) 20 mg/dL (Neg-Trace); RBC/HPF 0-3 HPF (0-3); Specific Gravity, Urine 1.028 (1.002-1.036); Squamous Epithelial 0-3 HPF (0-3); Urobilinogen 6 mg/dL (Less than 2); pH, Urine 5.5 (5.0-9.0)
[2022-01-30 20:13] LABS: Bacteria/HPF Rare-Few HPF (None Seen)
[2022-01-30 20:15] LABS: Urine Culture Reflex Yes Yes
[2022-01-30] MEDS: Famotidine 20 MG TAB PO SCH (20:19)
[2022-01-30] MEDS ORDERED: Albumin 25% 25 GM/100 ML BOT IVPB SCH (21:15)
[2022-01-30] MEDS: Acetaminophen 325 MG TAB PO PRN (21:22)
[2022-01-30 21:58] LABS: Troponin I 0.063 ng/mL (< 0.028)
[2022-01-31] MEDS: Cefepime 2 GM in Sodium Chloride 0.9% 100 ML IVPB SCH ×2 (02:01→13:56)
[2022-01-31 05:20] LABS: Lactic Acid 1.5 mmol/L (0.5-2.2)
[2022-01-31 05:26] LABS: #Eosinphils 0.1 thou/uL (0.0-0.7); #Lymphocytes 1.1 thou/uL (1.20-3.40); #Monocytes 1.2 thou/uL (0.11-0.59); %Basophils 0.1 % (0.0-1.0); %Eosinophils 0.5 % (0.0-10.0); %Lymphocytes 6.3 % (21.0-51.0); %Neutrophils 86.1 % (42.0-75.0); Hemoglobin 9.4 g/dL (12.0-16.0); Mean Corpuscular HGB CONC 32.1 g/dL (32.0-36.0); Mean Corpuscular Hemoglobin 36.3 pg (27.0-31.0); Mean Platelet Volume 6.8 fL (7.4-10.4); Platelet Count 152 thou/uL (130-400); RBC Distribution Width 15.5 % (11.5-14.5); Red Blood Cell (RBC) Count 2.59 mill/uL (4.20-5.40); White Blood Cell (WBC) Count 17.4 thou/uL (4.8-10.8)
[2022-01-31 05:27] LABS: ALT (SGPT) 11 U/L (8-55); AST (SGOT) 22 U/L (5-34); Albumin 2.5 g/dL (3.4-4.8); Alkaline Phosphatase 105 U/L (40-110); Anion Gap 12 mmol/L (10-20); BUN (Urea Nitrogen) 18 mg/dL (9.8-20.1); Bilirubin, Total 1.5 mg/dL (0.2-1.2); Calc. Creatinine Clearance 109 mL/min (70-130); Calcium 7.4 mg/dL (7.8-10.44); Carbon Dioxide 30 mmol/L (23-31); Chloride 102 mmol/L (98-107); Estimated GFR 75; Globulin 2.5 g/dL (2.4-3.5); Glucose 109 mg/dL (83-110); Magnesium 0.8 mg/dL (1.6-2.6); Potassium 3.1 mmol/L (3.5-5.1); Sodium 141 mmol/L (136-145)
[2022-01-31] MEDS ORDERED: Magnesium Sulfate 4 GM in Sodium Chloride 0.9% 250 ML 250 ML IVPB SCH (05:45)
[2022-01-31] MEDS ORDERED: Magnesium Sulfate In Water 4 GM in Premix Bag 1 BAG IVPB SCH (05:45)
[2022-01-31] MEDS ORDERED: Potassium Chloride 40 MEQ in Premix Bag 1 BAG IVPB SCH (06:00)
[2022-01-31] MEDS: Famotidine 20 MG TAB PO SCH ×2 (09:15→20:52)
[2022-01-31] MEDS: Enoxaparin Sodium 40 MG/0.4 ML SYRINGE SC SCH (09:15)
[2022-01-31] MEDS: VANCOMYCIN 1.75 GM/500 ML BAG 1.75 GM in Premix Bag 1 BAG IVPB SCH (20:52)
[2022-02-01] MEDS: Cefepime 2 GM in Sodium Chloride 0.9% 100 ML IVPB SCH ×2 (02:04→13:43)
[2022-02-01 06:10] LABS: #Eosinphils 2.5 thou/uL (0.0-0.7); #Lymphocytes 1.1 thou/uL (1.20-3.40); #Monocytes 1.3 thou/uL (0.11-0.59); #Neutrophils 12.5 thou/uL (1.40-6.50); %Eosinophils 14.4 % (0.0-10.0); %Lymphocytes 6.1 % (21.0-51.0); %Monocytes 7.7 % (0.0-10.0); %Neutrophils 71.8 % (42.0-75.0); Hemoglobin 10.6 g/dL (12.0-16.0); Mean Corpuscular HGB CONC 31.6 g/dL (32.0-36.0); Mean Corpuscular Hemoglobin 35.7 pg (27.0-31.0); Mean Platelet Volume 7.3 fL (7.4-10.4); Platelet Count 146 thou/uL (130-400); RBC Distribution Width 15.5 % (11.5-14.5); Red Blood Cell (RBC) Count 2.97 mill/uL (4.20-5.40); White Blood Cell (WBC) Count 17.4 thou/uL (4.8-10.8)
[2022-02-01 06:29] LABS: ALT (SGPT) 11 U/L (8-55); AST (SGOT) 28 U/L (5-34); Albumin 2.3 g/dL (3.4-4.8); Alkaline Phosphatase 125 U/L (40-110); Anion Gap 13 mmol/L (10-20); BUN (Urea Nitrogen) 19 mg/dL (9.8-20.1); Bilirubin, Total 1.1 mg/dL (0.2-1.2); Calc. Creatinine Clearance 129 mL/min (70-130); Calcium 7.7 mg/dL (7.8-10.44); Carbon Dioxide 27 mmol/L (23-31); Chloride 103 mmol/L (98-107); Estimated GFR 88; Globulin 2.6 g/dL (2.4-3.5); Glucose 108 mg/dL (83-110); Magnesium 1.6 mg/dL (1.6-2.6); Potassium 3.5 mmol/L (3.5-5.1); Protein, Total 4.9 g/dL (5.8-8.1); Sodium 139 mmol/L (136-145)
[2022-02-01] MEDS ORDERED: Potassium Chloride 20 MEQ TAB PO SCH (08:00)
[2022-02-01] MEDS ORDERED: Magnesium 2 GM/50 ML(in water) 2 GM in Premix Bag 1 BAG IVPB SCH (08:00)
[2022-02-01] MEDS: Famotidine 20 MG TAB PO SCH ×2 (08:55→22:15)
[2022-02-01] MEDS: Enoxaparin Sodium 40 MG/0.4 ML SYRINGE SC SCH (08:55)
[2022-02-01] MEDS ORDERED: Bisacodyl 10 MG SUPP PR PRN (12:12)
[2022-02-01] MEDS ORDERED: Bisacodyl 10 MG SUPP PR SCH (12:15)
[2022-02-01] MEDS: Sodium Chloride 0.45% 1,000 ML IV SCH (12:18)
[2022-02-01] MEDS: Ondansetron PF 4 MG/2 ML Vial IVP PRN (17:57)
[2022-02-01 20:51] LABS: Vancomycin, Trough 16.1 ug/mL
[2022-02-01] MEDS: VANCOMYCIN 1.75 GM/500 ML BAG 1.75 GM in Premix Bag 1 BAG IVPB SCH (22:16)
[2022-02-02] MEDS: Sodium Chloride 0.45% 1,000 ML IV SCH ×2 (01:30→05:55)
[2022-02-02] MEDS: Cefepime 2 GM in Sodium Chloride 0.9% 100 ML IVPB SCH ×2 (02:07→14:25)
[2022-02-02 05:09] LABS: #Eosinphils 1.4 thou/uL (0.0-0.7); #Lymphocytes 1.1 thou/uL (1.20-3.40); #Monocytes 1.4 thou/uL (0.11-0.59); #Neutrophils 13.3 thou/uL (1.40-6.50); %Basophils 0.1 % (0.0-1.0); %Lymphocytes 6.6 % (21.0-51.0); %Monocytes 8.3 % (0.0-10.0); Hemoglobin 10.1 g/dL (12.0-16.0); Mean Corpuscular HGB CONC 32.2 g/dL (32.0-36.0); Mean Corpuscular Hemoglobin 35.9 pg (27.0-31.0); Mean Platelet Volume 7.5 fL (7.4-10.4); Platelet Count 123 thou/uL (130-400); RBC Distribution Width 15.4 % (11.5-14.5); Red Blood Cell (RBC) Count 2.82 mill/uL (4.20-5.40); White Blood Cell (WBC) Count 17.2 thou/uL (4.8-10.8)
[2022-02-02 05:32] LABS: ALT (SGPT) 14 U/L (8-55); AST (SGOT) 26 U/L (5-34); Albumin 2.2 g/dL (3.4-4.8); Alkaline Phosphatase 117 U/L (40-110); Anion Gap 11 mmol/L (10-20); BUN (Urea Nitrogen) 19 mg/dL (9.8-20.1); Bilirubin, Total 1.2 mg/dL (0.2-1.2); Calc. Creatinine Clearance 145 mL/min (70-130); Calcium 7.9 mg/dL (7.8-10.44); Carbon Dioxide 27 mmol/L (23-31); Chloride 104 mmol/L (98-107); Estimated GFR 90; Globulin 2.4 g/dL (2.4-3.5); Glucose 125 mg/dL (83-110); Protein, Total 4.6 g/dL (5.8-8.1); Sodium 138 mmol/L (136-145)
[2022-02-02] MEDS: Enoxaparin Sodium 40 MG/0.4 ML SYRINGE SC SCH (08:41)
[2022-02-02] MEDS: Famotidine 20 MG TAB PO SCH ×2 (08:41→21:49)
[2022-02-02] MEDS: Ondansetron PF 4 MG/2 ML Vial IVP PRN ×2 (09:41→17:38)
[2022-02-02] MEDS: Acetaminophen 325 MG TAB PO PRN (09:41)
[2022-02-02] MEDS ORDERED: Cyclobenzaprine 10 MG TAB PO PRN (11:20)
[2022-02-02] MEDS ORDERED: HYDROcodone/Acetaminophen 5/325 mg Tablet PO PRN (11:20)
[2022-02-02] MEDS ORDERED: Diazepam 5 MG TAB PO PRN (11:20)
[2022-02-02 11:30] LABS: Magnesium 1.9 mg/dL (1.6-2.6)
[2022-02-02] MEDS ORDERED: Electrolyte Replacement Protocol FS PRN (12:45)
[2022-02-02] MEDS ORDERED: Magnesium 2 GM/50 ML(in water) 2 GM in Premix Bag 1 BAG IVPB SCH (14:00)
[2022-02-02] MEDS: rOPINIRole HCl 2 MG TAB PO SCH (21:49)
[2022-02-03] MEDS: Cefepime 2 GM in Sodium Chloride 0.9% 100 ML IVPB SCH ×2 (01:17→14:58)
[2022-02-03] MEDS: Sodium Chloride 0.45% 1,000 ML IV SCH ×2 (01:36→15:11)
[2022-02-03] MEDS ORDERED: Levothyroxine Sodium 25 MCG TAB PO SCH (06:00)
[2022-02-03] MEDS: Enoxaparin Sodium 40 MG/0.4 ML SYRINGE SC SCH (09:30)
[2022-02-03] MEDS: Famotidine 20 MG TAB PO SCH ×3 (09:30→20:06)
[2022-02-03] MEDS: Losartan 25 MG TAB PO SCH (15:10)
[2022-02-03] MEDS: rOPINIRole HCl 2 MG TAB PO SCH (20:06)
[2022-02-04] MEDS: Cefepime 2 GM in Sodium Chloride 0.9% 100 ML IVPB SCH ×2 (01:55→14:11)
[2022-02-04] MEDS: Sodium Chloride 0.45% 1,000 ML IV SCH (02:11)
[2022-02-04] MEDS: Losartan 25 MG TAB PO SCH (08:52)
[2022-02-04] MEDS: Enoxaparin Sodium 40 MG/0.4 ML SYRINGE SC SCH (08:52)
[2022-02-04] MEDS: Famotidine 20 MG TAB PO SCH (08:53)
[2022-02-04] MEDS: Ondansetron PF 4 MG/2 ML Vial IVP PRN (14:16)
[2022-02-04 15:33] VITALS: BMI 55.6
[2022-02-04 16:47] VITALS: BP 100/43; TEMP 97.4
== END 2022-02-04 17:20 | DRG 871 ==
LOC: ERS 13:03 → CCU 15:07 → T4-A 02-02 14:10
PROVIDERS: ADMIT Internal Medicine; ATTEND Internal Medicine
PROC: 3E03329 Introduction of Other Anti-infective into Peripheral Vein, Percutaneous Approach (ICD-10-PCS; principal; 2022-01-30)
PROC: 3E033XZ Introduction of Vasopressor into Peripheral Vein, Percutaneous Approach (ICD-10-PCS; 2022-01-30)
DX: A40.1 Sepsis due to streptococcus, group B (principal); R65.21 Severe sepsis with septic shock; J96.11 Chronic respiratory failure with hypoxia; I50.32 Chronic diastolic (congestive) heart failure; Z68.43 Body mass index [BMI] 50.0-59.9, adult; L03.311 Cellulitis of abdominal wall; L03.116 Cellulitis of left lower limb; L03.115 Cellulitis of right lower limb; Z20.822 Contact with and (suspected) exposure to COVID-19; Z51.5 Encounter for palliative care; E03.9 Hypothyroidism, unspecified; I11.0 Hypertensive heart disease with heart failure; F41.9 Anxiety disorder, unspecified; R77.8 Other specified abnormalities of plasma proteins; D64.9 Anemia, unspecified; I44.7 Left bundle-branch block, unspecified; E86.9 Volume depletion, unspecified; E87.6 Hypokalemia; E83.42 Hypomagnesemia; E66.01 Morbid (severe) obesity due to excess calories; Z28.21 Immunization not carried out because of patient refusal; Z99.81 Dependence on supplemental oxygen; Z85.05 Personal history of malignant neoplasm of liver; Z88.5 Allergy status to narcotic agent; Z91.040 Latex allergy status; Z79.899 Other long term (current) drug therapy; Z79.890 Hormone replacement therapy; Z90.710 Acquired absence of both cervix and uterus; Z74.01 Bed confinement status
CPT/HCPCS: 36415; 36556; 71045; 80053; 80202; 81001; 82550; 82553; 83605; 83690; 83735; 83880; 84484; 85025; 87040; 87077; 87086; 87149; 87186; 87804; 93005; 93010; 93306; 96361; 96365; 96374; J0692; J1650; J2405; J3370; J3475; J3480; J3490; P9047; U0002

== ENCOUNTER 2022-02-20 09:18 | Emergency (ER) | payer MEDICARE, MEDICAID ==
[2022-02-20 11:18] LABS: Hemoglobin 9.6 g/dL (12.0-16.0); Mean Corpuscular HGB CONC 30.3 g/dL (32.0-36.0); Mean Corpuscular Hemoglobin 33.8 pg (27.0-31.0); Mean Platelet Volume 9.1 fL (7.4-10.4); Platelet Count 107 thou/uL (130-400); RBC Distribution Width 16.7 % (11.5-14.5); Red Blood Cell (RBC) Count 2.84 mill/uL (4.20-5.40); White Blood Cell (WBC) Count 4.9 thou/uL (4.8-10.8)
[2022-02-20 11:38] LABS: #Eosinphils 0.4 thou/uL (0.0-0.7); #Monocytes 0.5 thou/uL (0.11-0.59); %Basophils 0.3 % (0.0-1.0); %Eosinophils 8.3 % (0.0-10.0); %Lymphocytes 21.2 % (21.0-51.0); %Monocytes 9.3 % (0.0-10.0); %Neutrophils 60.8 % (42.0-75.0); MDiff Complete? YES; Macrocytosis MODERATE=16-30 cells (100X) (0-5/hpf); Platelet Morphology Comment Appears Decreased
[2022-02-20 11:53] LABS: Albumin 2.4 g/dL (3.4-4.8)
[2022-02-20 11:54] LABS: Chloride 106 mmol/L (98-107); Potassium 3.8 mmol/L (3.5-5.1); Sodium 143 mmol/L (136-145)
[2022-02-20 11:55] LABS: Calcium 8.5 mg/dL (7.8-10.44)
[2022-02-20 11:56] LABS: Globulin 3.9 g/dL (2.4-3.5); Glucose 79 mg/dL (83-110); Protein, Total 6.3 g/dL (5.8-8.1)
[2022-02-20 11:57] LABS: Anion Gap 15 mmol/L (10-20); Carbon Dioxide 26 mmol/L (23-31)
[2022-02-20 11:58] LABS: Alkaline Phosphatase 161 U/L (40-110); Bilirubin, Total 1.2 mg/dL (0.2-1.2)
[2022-02-20 11:59] LABS: Calc. Creatinine Clearance 0 mL/min (70-130); Estimated GFR 37
[2022-02-20 12:00] LABS: BUN (Urea Nitrogen) 43 mg/dL (9.8-20.1)
[2022-02-20 12:01] LABS: ALT (SGPT) 21 U/L (8-55); AST (SGOT) 39 U/L (5-34)
[2022-02-20 13:36] LABS: Bilirubin Negative (Negative); Blood, Urine Large (Negative); Glucose, Urine (Dipstick) Negative (Negative); Ketone, Urine Negative (Negative); Leukocyte Moderate (Negative); Nitrite Negative (Negative); Protein, Urine (Dipstick) Negative (Neg-Trace); pH, Urine 5.5 (5.0-9.0)
[2022-02-20 13:37] LABS: Clarity Hazy (Clear)
[2022-02-20 13:43] LABS: Bacteria/HPF Rare-Few HPF (None Seen); RBC/HPF 0-3 HPF (0-3); Yeast-Budding Rare HPF (None Seen)
[2022-02-20] MEDS ORDERED: cefTRIAXone\\ROCEPHIN 2 GM VIAL ONE (14:20)
== END 2022-02-20 16:07 | disposition home or self-care (01) ==
LOC: ERS 09:18
DX: N39.0 Urinary tract infection, site not specified (principal); R41.82 Altered mental status, unspecified; R21 Rash and other nonspecific skin eruption; E03.9 Hypothyroidism, unspecified; I11.0 Hypertensive heart disease with heart failure; I50.9 Heart failure, unspecified; K21.9 Gastro-esophageal reflux disease without esophagitis
CPT/HCPCS: 71045; 80053; 81003; 81015; 83880; 84443; 84484; 85025; 87077; 87086; 87186; 93005; 96365; J0696

== ENCOUNTER 2022-02-24 16:26 | Inpatient (IN) | payer MEDICARE, MEDICAID ==
[2022-02-24 17:16] LABS: Hemoglobin 7.9 g/dL (12.0-16.0); Mean Corpuscular HGB CONC 32.1 g/dL (32.0-36.0); Mean Corpuscular Hemoglobin 35.3 pg (27.0-31.0); Mean Platelet Volume 8.5 fL (7.4-10.4); Platelet Count 63 thou/uL (130-400); RBC Distribution Width 16.7 % (11.5-14.5); Red Blood Cell (RBC) Count 2.25 mill/uL (4.20-5.40); White Blood Cell (WBC) Count 9.1 thou/uL (4.8-10.8)
[2022-02-24] MEDS ORDERED: Cefepime 2 GM VIAL ONE (17:31)
[2022-02-24 17:34] LABS: Anisocytosis SLIGHT = 6-15 cells (100X) (0-5/hpf); Band 43 % (5-11); Eosinophils 2 % (0-10); Lymphocytes 9 % (21-51); MDiff Complete? YES; Macrocytosis SLIGHT = 6-15 cells (100X) (0-5/hpf); Metamyelocyte 7 % (0-0); Monocytes 7 % (0-10); Neutrophil 31 % (42-75); Ovalocytes SLIGHT = 2-5 cells (100X) (0-1/hpf); Platelet Morphology Comment Appears Decreased; Polychromasia SLIGHT = 2-3 cells (100X) (0-2/hpf); Reactive Lymphocytes 1 % (0-10); Schistocytes SLIGHT = 2-5 cells (100X) (0-1/hpf)
[2022-02-24 17:35] LABS: ALT (SGPT) 16 U/L (8-55); AST (SGOT) 29 U/L (5-34); Albumin 1.7 g/dL (3.4-4.8); Alkaline Phosphatase 137 U/L (40-110); Anion Gap 15 mmol/L (10-20); BUN (Urea Nitrogen) 38 mg/dL (9.8-20.1); Bilirubin, Total 0.7 mg/dL (0.2-1.2); Calc. Creatinine Clearance 0 mL/min (70-130); Calcium 7.9 mg/dL (7.8-10.44); Carbon Dioxide 20 mmol/L (23-31); Chloride 104 mmol/L (98-107); Estimated GFR 41; Globulin 3.1 g/dL (2.4-3.5); Glucose 114 mg/dL (83-110); Potassium 3.4 mmol/L (3.5-5.1); Protein, Total 4.8 g/dL (5.8-8.1); Sodium 136 mmol/L (136-145)
[2022-02-24 17:57] LABS: Bilirubin Negative (Negative); Blood, Urine Large (Negative); Glucose, Urine (Dipstick) Negative (Negative); Ketone, Urine Negative (Negative); Leukocyte Moderate (Negative); Nitrite Negative (Negative); Protein, Urine (Dipstick) Negative (Neg-Trace); Urobilinogen 0.2 mg/dL (Less than 2)
[2022-02-24 18:18] LABS: Clarity Cloudy (Clear)
[2022-02-24 18:19] LABS: Bacteria/HPF 2+ HPF (None Seen); WBC/HPF 21-50 HPF (0-3); Yeast-Budding 1+ HPF (None Seen)
[2022-02-24 18:21] LABS: Vacuoles SLIGHT
[2022-02-24] MEDS ORDERED: NOREPINEPHRINE 8 MG/250 ML-D5W 250 ML ONE (18:40)
[2022-02-24] MEDS ORDERED: Vancomycin 1 GM/200 ML BAG ONE (18:48)
[2022-02-24] MEDS ORDERED: Acetaminophen 325 MG TAB PO PRN (20:16)
[2022-02-24] MEDS ORDERED: Ondansetron PF 4 MG/2 ML Vial IVP PRN (20:16)
[2022-02-24] MEDS ORDERED: Potassium Chloride 20 MEQ TAB PO SCH (20:30)
[2022-02-24] MEDS ORDERED: Albumin 25% 25 GM/100 ML BOT IVPB SCH (20:30)
[2022-02-24 23:57] VITALS: BMI 62.4
[2022-02-25] MEDS ORDERED: Vancomycin 1 GM in Premix Bag 1 BAG IVPB SCH ×2 (00:15→23:30)
[2022-02-25] MEDS: NOREPINEPHRINE 8 MG/250 ML-D5W 250 ML IVPB SCH ×3 (02:44→17:28)
[2022-02-25 04:44] LABS: Anion Gap 14 mmol/L (10-20); BUN (Urea Nitrogen) 35 mg/dL (9.8-20.1); Calc. Creatinine Clearance 77 mL/min (70-130); Calcium 8.3 mg/dL (7.8-10.44); Carbon Dioxide 22 mmol/L (23-31); Chloride 103 mmol/L (98-107); Estimated GFR 44; Glucose 132 mg/dL (83-110); Magnesium 1.4 mg/dL (1.6-2.6); Potassium 3.4 mmol/L (3.5-5.1); Sodium 136 mmol/L (136-145)
[2022-02-25] MEDS: Levothyroxine Sodium 50 MCG TAB PO SCH (06:13)
[2022-02-25] MEDS: Cefepime 1 GM in Sodium Chloride 0.9% 100 ML IVPB SCH ×2 (06:13→17:19)
[2022-02-25 06:36] LABS: Hemoglobin 10.5 g/dL (12.0-16.0); Mean Corpuscular HGB CONC 30.9 g/dL (32.0-36.0); Mean Corpuscular Hemoglobin 33.6 pg (27.0-31.0); Mean Platelet Volume 9.2 fL (7.4-10.4); Platelet Count 92 thou/uL (130-400); RBC Distribution Width 17.4 % (11.5-14.5); Red Blood Cell (RBC) Count 3.12 mill/uL (4.20-5.40); White Blood Cell (WBC) Count 23.2 thou/uL (4.8-10.8)
[2022-02-25] MEDS ORDERED: Acetaminophen 325 MG TAB PO PRN (07:45)
[2022-02-25] MEDS ORDERED: Albumin 25% 25 GM/100 ML BOT IVPB SCH (08:30)
[2022-02-25 08:36] LABS: Band 54 % (5-11); Lymphocytes 6 % (21-51); MDiff Complete? YES; Metamyelocyte 12 % (0-0); Monocytes 3 % (0-10); Myelocyte 1 % (0-0); Neutrophil 24 % (42-75); Platelet Morphology Comment Appears Decreased; Polychromasia SLIGHT = 2-3 cells (100X) (0-2/hpf); Toxic Granulation SLIGHT; Vacuoles MODERATE
[2022-02-25] MEDS ORDERED: Magnesium 2 GM/50 ML(in water) 2 GM in Premix Bag 1 BAG IVPB SCH (09:00)
[2022-02-25] MEDS: Polyethylene Glycol 3350 17 GM Packet PO SCH (09:15)
[2022-02-25] MEDS: Fluconazole 100 MG TAB PO SCH (09:16)
[2022-02-25] MEDS ORDERED: Potassium Chloride 40 MEQ in Premix Bag 1 BAG IVPB SCH (10:30)
[2022-02-25] MEDS ORDERED: Nystatin Powder 15 GM BOT TOP PRN (10:34)
[2022-02-25] MEDS ORDERED: Cosyntropin 250 MCG VIAL SLOW IVP SCH (10:45)
[2022-02-25] MEDS: Hydrocortisone Sod Succ/PF 100 mg/2 ml Vial IVP SCH ×2 (15:46→21:42)
[2022-02-25] MEDS: Albumin 25% 25 GM/100 ML BOT IVPB SCH ×2 (17:19→21:42)
[2022-02-25 21:48] LABS: Vancomycin, Random 13.6 ug/mL (See Comment)
[2022-02-25] MEDS ORDERED: rOPINIRole HCl 2 MG TAB PO SCH (23:00)
[2022-02-25] MEDS ORDERED: VANCOMYCIN IVPB SCH (23:00)
[2022-02-26] MEDS: Hydrocortisone Sod Succ/PF 100 mg/2 ml Vial IVP SCH ×3 (02:30→14:05)
[2022-02-26] MEDS: Albumin 25% 25 GM/100 ML BOT IVPB SCH ×3 (04:16→17:31)
[2022-02-26 04:39] LABS: Anion Gap 21 mmol/L (10-20); BUN (Urea Nitrogen) 33 mg/dL (9.8-20.1); Calc. Creatinine Clearance 77 mL/min (70-130); Calcium 9.2 mg/dL (7.8-10.44); Carbon Dioxide 17 mmol/L (23-31); Chloride 104 mmol/L (98-107); Estimated GFR 44; Glucose 98 mg/dL (83-110); Magnesium 1.8 mg/dL (1.6-2.6); Potassium 3.8 mmol/L (3.5-5.1); Sodium 138 mmol/L (136-145)
[2022-02-26] MEDS: Cefepime 1 GM in Sodium Chloride 0.9% 100 ML IVPB SCH (05:06)
[2022-02-26] MEDS: Levothyroxine Sodium 50 MCG TAB PO SCH (05:08)
[2022-02-26 05:33] LABS: Band 23 % (5-11); Hemoglobin 8.8 g/dL (12.0-16.0); Lymphocytes 2 % (21-51); MDiff Complete? YES; Mean Corpuscular HGB CONC 32.4 g/dL (32.0-36.0); Mean Corpuscular Hemoglobin 35.4 pg (27.0-31.0); Mean Platelet Volume 8.9 fL (7.4-10.4); Monocytes 16 % (0-10); Neutrophil 59 % (42-75); Platelet Count 45 thou/uL (130-400); Platelet Morphology Comment Appears Decreased; RBC Distribution Width 17.5 % (11.5-14.5); Red Blood Cell (RBC) Count 2.48 mill/uL (4.20-5.40); Toxic Granulation SLIGHT; White Blood Cell (WBC) Count 18.7 thou/uL (4.8-10.8)
[2022-02-26] MEDS: Fluconazole 100 MG TAB PO SCH (08:43)
[2022-02-26] MEDS: Polyethylene Glycol 3350 17 GM Packet PO SCH (08:43)
[2022-02-26] MEDS: NOREPINEPHRINE 8 MG/250 ML-D5W 250 ML IVPB SCH (11:17)
[2022-02-26] MEDS ORDERED: Midodrine HCl 5 MG TAB PO SCH (12:45)
[2022-02-26 20:03] VITALS: TEMP 97.6
== END 2022-02-26 20:45 | disposition hospice, home (50) | DRG 871 ==
LOC: ERS 16:26 → CCU 19:38
PROVIDERS: ADMIT Hospitalist; ATTEND Hospitalist
PROC: 3E03329 Introduction of Other Anti-infective into Peripheral Vein, Percutaneous Approach (ICD-10-PCS; principal; 2022-02-24)
PROC: 3E033XZ Introduction of Vasopressor into Peripheral Vein, Percutaneous Approach (ICD-10-PCS; 2022-02-24)
DX: A41.9 Sepsis, unspecified organism (principal); R65.21 Severe sepsis with septic shock; N39.0 Urinary tract infection, site not specified; I50.32 Chronic diastolic (congestive) heart failure; N17.9 Acute kidney failure, unspecified; E27.40 Unspecified adrenocortical insufficiency; I13.0 Hypertensive heart and chronic kidney disease with heart failure and stage 1 through stage 4 chronic kidney disease, or unspecified chronic kidney disease; Z68.44 Body mass index [BMI] 60.0-69.9, adult; C22.8 Malignant neoplasm of liver, primary, unspecified as to type; Z51.5 Encounter for palliative care; E03.9 Hypothyroidism, unspecified; G25.81 Restless legs syndrome; E83.42 Hypomagnesemia; K21.9 Gastro-esophageal reflux disease without esophagitis; E66.01 Morbid (severe) obesity due to excess calories; F41.9 Anxiety disorder, unspecified; I44.7 Left bundle-branch block, unspecified; K74.69 Other cirrhosis of liver; K59.09 Other constipation; N18.30 Chronic kidney disease, stage 3 unspecified; D63.1 Anemia in chronic kidney disease; E87.6 Hypokalemia; K75.81 Nonalcoholic steatohepatitis (NASH); D69.6 Thrombocytopenia, unspecified; Z88.1 Allergy status to other antibiotic agents; Z90.710 Acquired absence of both cervix and uterus; Z88.5 Allergy status to narcotic agent; Z88.8 Allergy status to other drugs, medicaments and biological substances; Z91.040 Latex allergy status; Z79.890 Hormone replacement therapy; Z79.899 Other long term (current) drug therapy; Z88.6 Allergy status to analgesic agent; Z88.2 Allergy status to sulfonamides; Z91.09 Other allergy status, other than to drugs and biological substances
CPT/HCPCS: 36415; 36416; 36430; 36556; 51701; 71045; 80048; 80053; 80202; 80400; 81001; 82533; 83605; 83735; 83880; 84443; 85025; 85060; 86850; 86900; 86901; 87040; 87086; 93005; 93010; 96361; 96365; 96366; 96367; 99292; J0692; J0834; J1720; J2405; J3370; J3475; J3480; J3490; P9016; P9047; U0003; U0005